=== PATIENT | male | born 1955 | race Caucasian/White ===

== ENCOUNTER 2016-08-28 11:30 | Emergency (ER) | payer MEDICARE ==
[~2016-08-28] VITALS: Ht 180.3 cm; Wt 95.3 kg
[~2016-08-28 11:30] MED LIST: ASPIRIN 325MG325 MG PO; BENZTROPINE1 MG PO; DEPAKOTE 250MG250 MG PO; DIVALPROEX 250250 MG PO; DIVALPROEX SOD250 MG PO; DONEPEZIL 10MG10 MG PO; GLIPIZIDE 5MG TA5 MG PO; HALOPERIDOL 5MG.5 MG OR; LIPITOR40 MG PO; METFORMIN500 MG PO; METOPROLOL SUC100 M1 PO; NAMENDA5 MG PO; SENNA LAXATIVE8.6 MG PO; SEROQUEL 100MG100 MG PO; SEROQUEL25 MG PO
--- OUTSIDE RECORDS SUMMARY | 2016-08-28 11:59 | External Medical Summary Rpt ---
Author Author , Organization [employer] Address Unknown Phone Unavailable Care Team Providers Care Healthcare Consultant Name Role Phone RM HONEYCUTT, RM Unavailable Unavailable YINKA JOHNSON JULY, ELIZABETH JULY Unavailable Unavailable HAGENSCHNEIDER JADEN, Unavailable Unavailable HAGENSCHNEIDER JADEN [facility] Unavailable Unavailable [facility], [facility] Unavailable Unavailable [facility]INGS, [facility] HERNAN GRE, Unavailable Unavailable HERNAN GRE [facility] Unavailable [facility]available [facility], [facility]available Unavailable [facility], [facility], Unavailable Unavailable [facility], Unavailable Unavailable [facility] Unavailable Unavailable COUNSELING, [facility] NIK PAT, NIK Unavailable Unavailable PAT SHRABERG SIMONE, Unavailable Unavailable SHRABERG SIMONE [facility] Unavailable Unavailable EM[facility], [facility] Unavailable Unavailable [facility], [facility], Unavailable Unavailable [facility] IZZY GLE, IZZY Unavailable Unavailable GLE IZZY GLE, IZZY Unavailable Unavailable GLE Purpose Continuity of Care Document - 04-22-2013 through 2016 Problems Code Diagnosis DOS Provider Status E11.40 Type 2 07-18-2016 diabetes mellitus with diabetic neuropathy, unspecified E78.5 Hyperlipide 07-18-2016 jad, unspecified E87.6 Hypokalemia 07-18-2016 F02.81 Dementia in 07-18-2016 other diseases classified elsewhere with behavioral disturbance F41.9 Anxiety 07-18-2016 disorder, unspecified G30.9 Alzheimer's 07-18-2016 disease, unspecified G31.83 Dementia 07-18-2016 with Lewy bodies G40.909 Epilepsy, 07-18-2016 unspecified , not intractable , without status epilepticus G93.40 Encephalopa 07-18-2016 thy, unspecified I10 Essential 07-18-2016 (primary) hypertensio n 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 I82.B19 Acute 07-18-2016 embolism and thrombosis of unspecified subclavian vein J95.03 Malfunction 07-18-2016 of tracheostom y stoma J96.21 Acute and 07-18-2016 chronic respiratory failure with hypoxia J98.11 Atelectasis 07-18-2016 L89.154 Pressure 07-18-2016 ulcer of sacral region, stage 4 R00.0 Tachycardia 07-18-2016 , unspecified R63.3 Feeding 07-18-2016 difficultie s Z79.4 salvage determiner 07-18-2016 (current) use of insulin Z87.01 Personal 07-18-2016 history of pneumonia (recurrent) Z87.440 Personal 07-18-2016 history of urinary (tract) infections Z87.891 Personal 07-18-2016 history of nicotine dependence A41.9 Sepsis, 06-28-2016 unspecified organism B96.1 Klebsiella 06-28-2016 pneumoniae [K. pneumoniae] as the cause of diseases classified elsewhere D72.1 Eosinophili 06-28-2016 a E66.9 Obesity, 06-28-2016 unspecified F02.80 Dementia in 06-28-2016 other diseases classified elsewhere without behavioral disturbance I82.621 Acute 06-28-2016 embolism and thrombosis of deep veins of right upper extremity J18.9 Pneumonia, 06-28-2016 unspecified organism J44.1 Chronic 06-28-2016 obstructive pulmonary disease with (acute) exacerbatio n J69.0 Pneumonitis 06-28-2016 due to inhalation of food and vomit J96.00 Acute 06-28-2016 respiratory failure, unspecified whether with hypoxia or hypercapnia N30.91 Cystitis, 06-28-2016 unspecified with hematuria R13.10 Dysphagia, 06-28-2016 unspecified R65.20 Severe 06-28-2016 sepsis without septic shock R79.1 Abnormal 06-28-2016 coagulation profile T17.990A Other 06-28-2016 foreign object in respiratory tract, part unspecified in causing asphyxiatio n, initial encounter Z93.1 Gastrostomy 06-28-2016 status Z00.00 Encounter 06-27-2016 for general adult medical examination without abnormal findings E11.9 TYPE 2 06-26-2016 DIABETES MELLITUS WITHOUT COMPLICATIO NS I50.9 HEART 06-26-2016 FAILURE, UNSPECIFIED J95.00 UNSPECIFIED 06-26-2016 TRACHEOSTOM Y COMPLICATIO N Z43.0 ENCOUNTER 06-26-2016 FOR ATTENTION TO TRACHEOSTOM Y Z79.01 MOSS BLEACHER 06-26-2016 (CURRENT) USE OF ANTICOAGULA NTS Z79.84 NURSING HOME 06-26-2016 (CURRENT) USE OF ORAL HYPOGLYCEMI C DRUGS Z79.899 OTHER LONG 06-26-2016 TERM (CURRENT) DRUG THERAPY Z86.711 PERSONAL 06-26-2016 HISTORY OF PULMONARY EMBOLISM Z86.718 PERSONAL 06-26-2016 HISTORY OF OTHER VENOUS THROMBOSIS AND EMBOLISM Z86.73 PERSONAL 06-26-2016 HISTORY OF TRANSIENT ISCHEMIC ATTACK (TIA), AND CEREBRAL INFARCTION WITHOUT RESIDUAL DEFICITS 52126 DIAB W/O 10-30-2013 PRIMARY COMP TYPE HEALTH II/UNS NOT ASSOCIATES STATED PS UNCNTRL 3310 ALZHEIMERS 10-30-2013 [facility] 4011 ESSENTIAL 10-30-2013 PRIMARY HYPERTENSI[place], [place] [address] INSOMNIA 09-29-2013 [facility] UNSPECIFIED HEALTH ASSOCIATES PS 2724 OTHER AND 09-16-2013 [facility] HYPERLIPIDE JAD 85801 OTHER 09-16-2013 [facility] FATIGUE 4660 ACUTE 09-15-2013 [place] [address] OTHER 09-03-2013 [facility] FRONTOTEMPO OUTPATIENT RAL COUNSELING DEMENTIA 4019 UNSPECIFIED 08-14-2013 [facility] HYPERTENSIO [facility] N 61429 OTHER 08-14-2013 [facility] ABNORMAL N EMERGENCY GLUCOSE [facility] 27662 DIAB 07-17-2013 PRIMARY W/UNSPEC HEALTH COMP TYPE ASSOCIATES II/UNSPEC PS TYPE UNCNTRL V720 EXAMINATION 07-17-2013 [facility] 22700 DIAB W/OTH 04-30-2013 [facility] MANIFESTS TYPE I [JUV TYPE] UNCNTRL 68951 OTHER 04-30-2013 [facility] LOCALIZED VISUAL FIELD DEFECT 4241 AORTIC 04-30-2013 [facility] VALVE DISORDERS 2768 HYPOPOTASSE 04-29-2013 [facility] JAD 4293 CARDIOMEGAL 04-29-2013 [facility] 7850 UNSPECIFIED 04-29-2013 [facility] G[facility] TACHYCARDIA 3559 MONONEURITI 04-22-2013 [facility] UNSPECIFIED SITE 6822 CELLULITIS 04-22-2013 [facility] 6829 CELLULITIS 04-22-2013 [facility] GLE AND ABSCESS OF UNSPECIFIED SITE 7906 OTHER 04-22-2013 [facility] ABNORMAL [facility] BLOOD [facility] CHEMISTRY 26605 UNS ADVRS 04-22-2013 [facility] EFF UNS RX [facility] MEDICINAL&B HOLDINGS IOLOGICAL SBSTNC V7791 SCREENING 04-22-2013 [facility] FOR LIPOID CO[facility] DISORDERS HOLDINGS Results Labs Lab Lab Date Result Refere Interp Status Commen Order Detail nces retati t Range on Urinalysis dipstick W Reflex Microscopic panel in Urine (08-25-2016 09:40) Bacteri 4+ O complet a 017 ed [Presen 09:40 ce] in Urine sedimen t by Light microsc opy Calcium 1+ NONE complet 017 ed oxalate 09:40 crystal s [Presen ce] in Urine sedimen t by Light microsc opy Erythro TNTC 0 complet cytes 017 ed [Presen 09:40 ce] in Urine sedimen t by Light microsc opy Urinalysis dipstick W Reflex Microscopic panel in Urine (08-25-2016 09:40) Appeara TURBID CLEAR complet nce of 017 ed Urine 09:40 Bilirub NEGATIV NEG complet in 017 E ed [Presen 09:40 ce] in Urine by Test strip Erythro 3+ NEG Abnorma complet cytes 017 l ed [Presen 09:40 ce] in Urine Color TERRIE YELLOW complet of 017 ed Urine 09:40 Ketones TRACE NEG Abnorma complet 017 l ed [Presen 09:40 ce] in Urine by Automat ed test strip Mucus 3+ NEG Abnorma complet [Presen 017 l ed ce] in 09:40 Urine sedimen t by Light microsc opy Nitrite POSITIV NEG Abnorma complet 017 E l ed [Presen 09:40 ce] in Urine by Test strip Urobili 2.0 NEG complet nogen 017 ed [Presen 09:40 ce] in Urine by Test strip CK SerPl-cCnc (07-02-2016 01:02) CK 70 U/L 49-320 complet SerPl-c 017 ed Cnc 01:02 Lactate Bld-sCnc (07-02-2016 01:02) Lactate 2.0 complet 017 mmol/L ed Bld-sCn 01:02 c Bacteria XXX Anaerobe+Aerobe Cult (06-25-2016 05:32) Bacteri [id number] complet a XXX 017 06 No ed Anaerob 05:32 growth e+Aerob (qualif e Cult ier value) SCT NGB5 NO GROWTH DAY 4. L Bacteria XXX Anaerobe+Aerobe Cult (06-24-2016 09:32) Bacteri [id number] complet a XXX 017 06 No ed Anaerob 09:32 growth e+Aerob (qualif e Cult ier value) SCT NGB6 NO GROWTH DAY 5. L Tobramycin SerPl-mCnc (06-19-2016 04:00) Tobramy < 0.3 0.0-10. complet juan 017 ug/mL 0 ed SerPl-m 04:00 Cnc Magnesium SerPl-mCnc (06-19-2016 04:00) Magnesi 2.0 1.9-2.4 complet um 017 mg/dL ed SerPl-m 04:00 Cnc Magnesium SerPl-mCnc (06-14-2016 02:29) Magnesi 2.1 1.9-2.4 complet um 017 mg/dL ed SerPl-m 02:29 Cnc S stercoralis IgG Ser Ql EIA (06-12-2016 16:27) S POSITIV complet stercor 017 E ed agueda 16:27 IgG Ser Ql EIA Vit B12 SerPl-mCnc (06-10-2016 04:59) Vit B12 594 210-103 complet 017 pg/mL 3 ed SerPl-m 04:59 Cnc Phosphate SerPl-mCnc (06-10-2016 04:59) Phospha 4.6 2.5-4.5 complet te 017 mg/dL ed SerPl-m 04:59 Cnc Magnesium SerPl-mCnc (06-10-2016 04:59) Magnesi 2.1 1.9-2.4 complet um 017 mg/dL ed SerPl-m 04:59 Cnc Phosphate SerPl-mCnc (06-08-2016 06:53) Phospha 3.9 2.5-4.5 complet te 017 mg/dL ed SerPl-m 06:53 Cnc Magnesium SerPl-mCnc (06-08-2016 06:53) Magnesi 2.0 1.9-2.4 complet um 017 mg/dL ed SerPl-m 06:53 Cnc Magnesium SerPl-mCnc (06-07-2016 01:55) Magnesi 2.1 1.9-2.4 complet um 017 mg/dL ed SerPl-m 01:55 Cnc Magnesium SerPl-mCnc (06-06-2016 03:00) Magnesi 2.1 1.9-2.4 complet um 017 mg/dL ed SerPl-m 03:00 Cnc Path Rev Bld -Imp (06-05-2016 14:49) Path [id number] complet Rev Bld 017 04 ed -Imp 14:49 refer to patholo gy laborat ory SCT COPATH COPATH REPORT TO FOLLOW L Bacteria XXX Anaerobe+Aerobe Cult (06-05-2016 12:04) Bacteri [id number] complet a XXX 017 06 No ed Anaerob 12:04 growth e+Aerob (qualif e Cult ier value) SCT NGB6 NO GROWTH DAY 5. L Magnesium SerPl-mCnc (06-03-2016 04:00) Magnesi 2.0 1.9-2.4 complet um 017 mg/dL ed SerPl-m 04:00 Cnc Magnesium SerPl-mCnc (06-02-2016 06:51) Magnesi 2.0 1.9-2.4 complet um 017 mg/dL ed SerPl-m 06:51 Cnc Magnesium SerPl-mCnc (06-01-2016 04:58) Magnesi 1.9 1.9-2.4 complet um 017 mg/dL ed SerPl-m 04:58 Cnc Lactate Bld-sCnc (06-01-2016 04:58) Lactate 1.0 complet 017 mmol/L ed Bld-sCn 04:58 c Bacteria XXX Resp Cult (05-31-2016 17:22) Bacteri INSP complet a XXX 017 SMEAR ed Anaerob 17:22 CONTAIN e+Aerob S >=10 e Cult SQUAMOU S EPITHEL IAL CELLS PER LOW POWER FIELD, SUGGEST CANDIDO OF POOR QUALITY . CULTURE NOT PERFORM ED. PLEASE RECOLLE CT IF CLINICA LLY INDICAT ED. A CREDIT HAS BEEN ISSUED. L CC XXX NOTAP complet VC-aCnc 017 NOT ed 17:22 APPLICA BLE L Lactate Bld-sCnc (05-31-2016 07:04) Lactate 1.3 complet 017 mmol/L ed Bld-sCn 07:04 c Magnesium SerPl-mCnc (05-31-2016 02:51) Magnesi 2.2 1.9-2.4 complet um 017 mg/dL ed SerPl-m 02:51 Cnc Bacteria Ur Cult (05-30-2016 17:25) Bacteri [id number] complet a XXX 017 8 Gram ed Anaerob 17:25 negativ e+Aerob e e Cult bacillu s (organi sm) SCT GNROD GRAM NEGATIV E KIKE L CC XXX NOTAP complet VC-aCnc 017 NOT ed 17:25 APPLICA BLE L Lactate Bld-sCnc (05-30-2016 15:08) Lactate 1.8 complet 017 mmol/L ed Bld-sCn 15:08 c Lactate Bld-sCnc (05-30-2016 08:27) Lactate 1.7 complet 017 mmol/L ed Bld-sCn 08:27 c Lactate Bld-sCnc (05-30-2016 04:22) Lactate 2.4 complet 017 mmol/L ed Bld-sCn 04:22 c Bacteria Ur Cult (05-30-2016 03:59) Bacteri [id number] complet a XXX 017 4 ed Anaerob 03:59 Pseudom e+Aerob onas e Cult aerugin jenae (organi sm) SCT PSAR PSEUDOM ONAS AERUGIN JENAE L CC XXX NOTAP complet VC-aCnc 017 NOT ed 03:59 APPLICA BLE L Bacteria XXX Anaerobe+Aerobe Cult (05-30-2016 03:56) Bacteri [id number] complet a XXX 017 06 No ed Anaerob 03:56 growth e+Aerob (qualif e Cult ier value) SCT NGB6 NO GROWTH DAY 5. L Phosphate SerPl-mCnc (05-27-2016 06:02) Phospha 05-27-2 3.7 2.5-4.5 complet te 017 mg/dL ed SerPl-m 06:02 Cnc Magnesium SerPl-mCnc (05-27-2016 06:02) Magnesi 05-27-2 2.0 1.9-2.4 complet um 017 mg/dL ed SerPl-m 06:02 Cnc Fungus Tiss Cult (04-20-2016 13:17) Bacteri NASF NO complet a XXX 017 ed Anaerob 13:17 ADDITIO e+Aerob NAL e Cult SIGNIFI CANT FUNGAL GROWTH AT 6 WEEKS L Bacteri [id number] complet a XXX 017 06 ed Anaerob 13:17 Roxana e+Aerob e Cult dublini ensis (organi sm) SCT CDUB ROXANA DUBLINI ENSIS L Bacteri [id number] complet a XXX 017 06 ed Anaerob 13:17 Roxana e+Aerob e Cult glabrat a (organi sm) SCT TGLA ROXANA GLABRAT A L Procedures Procedure DOS Code Location Performer Comment ALBUMIN 19144 [facility] URINE 4 [facility]NO[facility]I DIAGNOSTI MICROALBU [facility] MIN QUANTIATI VE CREATININ 96299 [facility] E OTHER 4 DIAGNOSTI DIAGNOSTI SOURCE CS BILIRUBIN 97451 [facility] DIRECT 4 DIAGNOSTI DIAGNOSTI [facility] GENERAL 95388 [facility] 4 [facility]AGNOSTI DIAGNOSTI PANEL [facility] LIPID 65818 [facility] PANEL 4 DIAGNOSTI DIAGNOSTI [facility] HEMOGLOBI 30995 [facility] N 4 DIAGNOSTI DIAGNOSTI GLYCOSYLA [address] [address] [facility] DISCHARGE 4 OUTPATIEN SIMONE DAY T MANAGEMEN COUNSELIN T 30 G MIN/< SBSQ 76799 [facility] 4 OUTPATIEN SIMONE CARE/DAY T 25 COUNSELIN MINUTES G SBSQ 53280 [facility] 4 OUTPATIEN SIMONE CARE/DAY T 25 COUNSELIN MINUTES G SBSQ 81109 [facility] 4 OUTPATIEN CARE/DAY T 25 COUNSELIN MINUTES G [facility] 33452 [facility] 4 OUTPATIEN CARE/DAY T 25 COUNSELIN MINUTES G HOSPITAL 30295 [facility] I[facility]Y DISCHARGE 4 GLE GLE DAY MANAGEMEN T > 30 MIN LIPOPROTE 15689 [facility]ZZ[facility] IN DIR 4 GLE GLE GERALDINE HIGH DENSITY CHOLESTER OL DUPLEX 45755 [facility] IZZY SCAN 4 GLE GLE EXTRACRAN IAL ART COMPL BI STUDY SBSQ 14003 [facility]Y HOSPITAL 4 GLE GLE CARE/DAY 35 MINUTES ECHO 26816 [facility] IZZ[facility] TTHRC R-T 4 GLE GLE 2D W/WOM-MOD E COMPL SPEC&COLR D RHYTHM 16086 [facility] ECG 1-3 4 GLE GLE LEADS INTERPRET ATION & REPRT ON RADIOLOGI 44430 [facility] C EXAM 4 EIDER JADEN CHEST 2 RADIOLOGY VIEWS ASSOCIAT FRONTAL&L ATERAL INITIAL 63855 [facility] HOSPITAL 4 GLE GLE CARE/DAY 70 MINUTES RHYTHM 96930 IZZY IZZY ECG 1-3 4 GLE GLE LEADS INTERPRET ATION & REPRT ON LIPOPROTE 59241 IZZ[facility] IZZY IN DIR 4 GLE GLE GERALDINE HIGH [place]ITY CHOLESTER OL 25 83857 [facility] HYDROXY 4 COY CO[facility] INCLUDES [facility]INGS FRACTIONS IF PERFORMED CUL BACT 96651 [facility] XCPT 4 [facility] URINE [facility] HOLD[facility] BLOOD/STO OL AEROBIC ISOL CULTURE 93620 [facility] BACTERIAL 4 [facility] ANY [facility] SOURCE ANAEROBIC ISO&ID GENERAL 88805 [facility] HEALTH 4 [facility] PANEL [facility] INCISION 48880 [place] NIK & 4 MEDICAL PAT DRAINAGE SERV ABSCESS FOUNDATIO SIMPLE/SI N NGLE SUSCEPTIB 50754 [facility] LTY STDY 4 [facility] ANTIMICRB [facility] IAL MICRO/AGA R DILUTJ LIPID 58331 [facility] PANEL 4 COY CO[facility]INGS GLUC BLD 81435 IZZY IZZY GLUC MNTR 4 GLE GLE DEV CLEARED FDA SPEC HOME USE HEMOGLOBI 05796 [facility] N 4 COY COY GLYCOSYLA [facility] HOLDINGS [place] A1C Encounters Encounter Start End Date Code Location Performer Type Date OFFICE 95506 [facility] 4 4 [facility] T VISIT ASSOCIATE 15 S PS MINUTES OFFICE 84469 [facility] OUTPATIEN 4 4 [facility]ALTH Y[facility]A T VISIT ASSOCIATE 15 S PS MINUTES OFFICE 42061 [facility] OUTPATIEN 4 4 HEALTH YINKA T VISIT ASSOCIATE 25 S PS MINUTES EMERGENCY 89256 [facility] EMERGENCY EMERGENCY T VISIT PHYSI PHYSI MODERATE SEVERITY OFFICE 17539 [facility] OUTPATIEN 4 4 HEALTH YINKA T VISIT ASSOCIATE 25 S PS MINUTES EMERGENCY 84305 [facility]AR[facility] 4 4 MEDICAL PAT DEPARTMEN SERV T VISIT FOUNDATIO MODERATE N SEVERITY [facility]OW/MODER SEVERITY OFFICE 33994 IZZY IZZY OUTPATIEN 4 4 GLE GLE T NEW 45 MINUTES
--- OUTSIDE RECORDS SUMMARY | 2016-08-28 11:59 | External Medical Summary Rpt ---
Author Author , Organization [employer] Address Unknown Phone Unavailable Care Team Providers Care Emery Wheel Worker Name Role Phone RM HONEYCUTT, RM Unavailable Unavailable YINKA JOHNSON JULY, ELIZABETH JULY Unavailable Unavailable HAGENSCHNEIDER JADEN, Unavailable Unavailable HAGENSCHNEIDER JADEN [facility] Unavailable Unavailable HOLDINGS, [facility] Unavailable Unavailable HOLDINGS, [facility] HERNAN GRE, Unavailable Unavailable HERNAN GRE [facility] Unavailable Unavailable ASSOCIAT, [facility] Unavailable Unavailable [facility] PS, [facility], [facility]available Unavailable [facility], Unavailable Unavailable [facility] Unavailable Unavailable COUNSELING, [facility] NIK PAT, NIK Unavailable Unavailable PAT SHRABERG SIMONE, Unavailable Unavailable SHRABERG SIMONE [facility] Unavailable Unavailable EMERGENCY [facility], [facility] Unavailable Unavailable EM[facility]Y [facility], [facility]ENC[facility], Unavailable Unavailable [facility] IZZY GLE, IZZY Unavailable Unavailable GLE IZZY [...] 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 I82.B19 Acute 07-18-2016 embolism and thrombosis of unspecified subclavian vein J95.03 Malfunction 07-18-2016 of tracheostom y stoma J96.21 Acute and 07-18-2016 chronic respiratory failure with hypoxia J98.11 Atelectasis 07-18-2016 L89.154 Pressure 07-18-2016 ulcer of sacral region, stage 4 R00.0 Tachycardia 07-18-2016 , unspecified R63.3 Feeding 07-18-2016 difficultie s Z79.4 manager long term care 07-18-2016 (current) use of insulin Z87.01 Personal [...] 06-26-2016 FOR ATTENTION TO TRACHEOSTOM Y Z79.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 (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) USE OF ANTICOAGULA NTS Z79.84 HALFWAY 06-26-2016 (CURRENT) USE OF ORAL HYPOGLYCEMI C DRUGS Z79.899 OTHER LONG 06-26-2016 TERM (CURRENT) DRUG THERAPY Z86.711 PERSONAL 06-26-2016 HISTORY OF PULMONARY EMBOLISM Z86.718 PERSONAL 06-26-2016 HISTORY OF OTHER VENOUS THROMBOSIS AND EMBOLISM Z86.73 PERSONAL 06-26-2016 HISTORY OF TRANSIENT ISCHEMIC ATTACK (TIA), AND CEREBRAL INFARCTION WITHOUT RESIDUAL DEFICITS 22970 DIAB W/O 10-30-2013 PRIMARY COMP TYPE HEALTH II/UNS NOT ASSOCIATES STATED PS UNCNTRL 3310 ALZHEIMERS 10-30-2013 [facility] PS 4011 ESSENTIAL 10-30-2013 [facility] HYPERTENSIO [place] [address] INSOMNIA 09-29-2013 [facility] UNSPECIFIED HEALTH ASSOCIATES PS 2724 OTHER AND 09-16-2013 [facility] HYPERLIPIDE JAD 56577 OTHER 09-16-2013 [facility] FATIGUE 4660 ACUTE 09-15-2013 [place] [address] OTHER 09-03-2013 [facility] FRONTOTEMPO OUTPATIENT RAL COUNSELING DEMENTIA 4019 UNSPECIFIED 08-14-2013 [facility] ESSENTIAL N EMERG[facility]Y HYPERTENSIO PHYSI N 87733 OTHER 08-14-2013 [facility] ABNORMAL N EMERGENCY GLUCOSE [facility] 75006 DIAB 07-17-2013 PRIMARY W/UNSPEC HEALTH COMP TYPE ASSOCIATES II/UNSPEC PS TYPE UNCNTRL V720 EXAMINATION 07-17-2013 [facility] 14151 DIAB W/OTH 04-30-2013 IZZY GLE MANIFESTS TYPE I [JUV TYPE] UNCNTRL 28702 OTHER 04-30-2013 IZZY GLE LOCALIZED VISUAL FIELD DEFECT 4241 AORTIC 04-30-2013 IZZY GLE VALVE DISORDERS 2768 HYPOPOTASSE 04-29-2013 IZZY GLE JAD 4293 CARDIOMEGAL 04-29-2013 [facility] 7850 UNSPECIFIED 04-29-2013 IZZY GLE TACHYCARDIA 3559 MONONEURITI 04-22-2013 [facility] UNSPECIFIED SITE 6822 CELLULITIS 04-22-2013 [facility] 6829 CELLULITIS 04-22-2013 IZZY GLE AND ABSCESS OF UNSPECIFIED SITE 7906 OTHER 04-22-2013 [facility] ABNORMAL [facility] CHEMISTRY 45419 UNS ADVRS 04-22-2013 [facility] EFF UNS [...] Bacteria XXX Anaerobe+Aerobe Cult (06-25-2016 05:32) Bacteri [id number] complet a XXX 017 06 No ed Anaerob 05:32 growth e+Aerob (qualif e Cult ier value) SCT NGB5 NO GROWTH DAY 4. L Bacteria XXX Anaerobe+Aerobe Cult (06-24-2016 09:32) Bacteri [id number] complet a XXX 017 06 No ed [...] Path Rev Bld -Imp (06-05-2016 14:49) Path [id number] complet Rev Bld 017 04 ed -Imp 14:49 refer to patholo gy laborat ory SCT COPATH COPATH REPORT TO FOLLOW L Bacteria XXX Anaerobe+Aerobe Cult (06-05-2016 12:04) Bacteri [id number] complet a XXX 017 06 No ed [...] Cnc Bacteria Ur Cult (05-30-2016 17:25) Bacteri [id number] complet a XXX 017 8 Gram ed [...] c Bacteria Ur Cult (05-30-2016 03:59) Bacteri [id number] complet a XXX 017 4 ed Anaerob 03:59 Pseudom e+Aerob onas e Cult aerugin jenae (organi sm) SCT PSAR PSEUDOM ONAS AERUGIN JENAE L CC XXX NOTAP complet VC-aCnc 017 NOT ed 03:59 APPLICA BLE L Bacteria XXX Anaerobe+Aerobe Cult (05-30-2016 03:56) Bacteri [id number] complet a XXX 017 06 No ed [...] FUNGAL GROWTH AT 6 WEEKS L Bacteri [id number] complet a XXX 017 06 ed Anaerob 13:17 Roxana e+Aerob e Cult dublini ensis (organi sm) SCT CDUB ROXANA DUBLINI ENSIS L Bacteri [id number] complet a XXX 017 06 ed Anaerob 13:17 Roxana e+Aerob e Cult glabrat a (organi sm) SCT TGLA ROXANA GLABRAT A L Procedures Procedure DOS Code Location Performer Comment ALBUMIN 25510 [facility] URINE 4 [facility]AGNOSTI DIAGNOSTI MICROALBU [facility] MIN QUANTIATI VE CREATININ 44251 [facility] E OTHER 4 DIAGNOSTI DIAGNOSTI SOURCE CS BILIRUBIN 79703 [facility] DIRECT 4 DIAGNOSTI DIAGNOSTI [facility] GENERAL 15575 [facility] 4 DIAGNOSTI DIAGNOSTI PANEL [facility] LIPID 04925 [facility] PANEL 4 DIAGNOSTI DIAGNOSTI [facility] HEMOGLOBI 69296 [facility] N 4 DIAGNOSTI DIAGNOSTI GLYCOSYLA [address] [address] [facility] DISCHARGE 4 OUTPATIEN SIMONE DAY T MANAGEMEN COUNSELIN T 30 G MIN/< SBSQ 30665 [facility] 4 OUTPATIEN SIMONE CARE/DAY T 25 COUNSELIN MINUTES G SBSQ 81073 [facility] 4 OUTPATIEN SIMONE CARE/DAY T 25 COUNSELIN MINUTES G SBSQ 40271 [facility] 4 OUTPATIEN CARE/DAY T 25 COUNSELIN MINUTES G [facility] 02820 [facility] 4 OUTPATIEN CARE/DAY T 25 COUNSELIN MINUTES G HOSPITAL 70358 IZZY IZZY DISCHARGE 4 GLE GLE DAY MANAGEMEN T > 30 MIN LIPOPROTE 67731 IZZY IZZY IN DIR 4 GLE GLE GERALDINE HIGH DENSITY CHOLESTER OL DUPLEX 44422 IZZY IZZY SCAN 4 GLE GLE EXTRACRAN IAL ART COMPL BI STUDY SBSQ 64241 IZZY IZZY HOSPITAL 4 GLE GLE CARE/DAY 35 MINUTES ECHO 91093 IZZY IZZY TTHRC R-T 4 GLE GLE 2D W/WOM-MOD E COMPL SPEC&COLR D RHYTHM 37146 IZZY IZZY ECG 1-3 4 GLE GLE LEADS INTERPRET ATION & REPRT ON RADIOLOGI 86339 [facility] C EXAM 4 EIDER JADEN CHEST 2 RADIOLOGY VIEWS ASSOCIAT FRONTAL&L ATERAL INITIAL 69851 [facility] 4 GLE GLE CARE/DAY 70 MINUTES RHYTHM 07463 IZZY IZZY ECG 1-3 4 GLE GLE LEADS INTERPRET ATION & REPRT ON LIPOPROTE 40256 IZZY IZZY IN DIR 4 GLE GLE GERALDINE HIGH DENSITY CHOLESTER OL 25 30349 LAB [facility] O[facility] HYDROXY 4 COY COY INCLUDES HOLDINGS HOLDINGS FRACTIONS IF PERFORMED CUL BACT 69254 [facility] OZZY XCPT 4 COY COY URINE HOLDINGS HOLDINGS BLOOD/STO OL AEROBIC ISOL CULTURE 83908 [facility] BACTERIAL 4 COY COY ANY HOLDINGS HOLDINGS SOURCE ANAEROBIC ISO&ID GENERAL 60974 [facility] HEALTH 4 COY COY PANEL HOLDINGS HOLDINGS INCISION 72161 [place] NIK & 4 MEDICAL PAT DRAINAGE SERV ABSCESS FOUNDATIO SIMPLE/SI N NGLE SUSCEPTIB 13187 [facility] LTY STDY 4 COY COY ANTIMICRB HOLDINGS HOLDINGS IAL MICRO/AGA R DILUTJ LIPID 96292 [facility] PANEL 4 COY COY HOLDINGS HOLDINGS GLUC BLD 73387 IZZY IZZY GLUC MNTR 4 GLE GLE DEV CLEARED FDA SPEC HOME USE HEMOGLOBI 84818 [facility] OZZ[facility] N 4 COY COY GLYCOSYLA HOLDINGS HOLDINGS [place] A1C Encounters Encounter Start End Date Code Location Performer Type Date OFFICE 56801 [facility] OUTPATIEN 4 4 HEALTH YINKA T VISIT ASSOCIATE 15 S PS MINUTES OFFICE 88099 [facility] RM OUTPATIEN 4 4 HEALTH YINKA T VISIT ASSOCIATE 15 S PS MINUTES OFFICE 23399 [facility] RM OUTPATIEN 4 4 HEALTH YINKA T VISIT ASSOCIATE 25 S PS MINUTES EMERGENCY 36018 [facility] 4 4 D[facility]G DOUG [facility] EMERGENCY EMERGENC[facility] T VISIT PHYSI PHYSI MODERATE SEVERITY OFFICE 43622 [facility] RM OUTPATIEN 4 4 HEALTH YINKA T VISIT ASSOCIATE 25 S PS MINUTES EMERGENCY 39712 ABDON ZARAGOZA 4 4 MEDICAL PAT DEPARTMEN SERV T VISIT FOUNDATIO MODERATE N SEVERITY HOSPITAL [facility] 0[facility]01 [facility]OW/MODER SEVERITY OFFICE 47557 IZZY IZZY OUTPATIEN 4 4 GLE GLE T NEW 45 MINUTES
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
--- OUTSIDE RECORDS SUMMARY | 2016-08-28 12:00 | External Medical Summary Rpt ---
Demographics Preferred Language Kazakh Marital Status Unknown Jain Affiliation Unknown Race Unknown Ethnic Group Unknown Author Author , Organization [employer] Address Unknown Phone Unavailable Purpose Continuity of Care Document - through 2016 Immunization No patient found.
--- OUTSIDE RECORDS SUMMARY | 2016-08-28 12:00 | External Medical Summary Rpt ---
Demographics Preferred Language Kyrgyz Marital Status Unknown Yazidi Affiliation Unknown Race Unknown Ethnic Group Unknown Author Author , Organization [employer] Address Unknown Phone Unavailable Purpose Continuity of Care Document - through 2016 Immunization No patient found.
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
--- OUTSIDE RECORDS SUMMARY | 2016-08-28 12:01 | External Medical Summary Rpt ---
Author Author MATT Brito, [employer] Address Unknown Phone Unavailable Results Urinalysis dipstick W Reflex Microscopic panel in Urine Observa Value Referen Units Interpr Notes Date tion ce etation Range Appeara TURBID CLEAR No No No Tommie 2 nce of informa informa informa 2017 Urine tion in tion in tion in 9:40 AM source source source data data data Bacteri 4+ O No No No Tommie 2 a informa informa informa 2016 [Presen tion in tion in tion in 9:40 AM ce] in source source source Urine data data data sedimen t by Light microsc opy Bilirub NEGATIV NEG No No BILIRUB Tommie 2 in E informa informa IN 2017 [Presen tion in tion in CONFIRM 9:40 AM ce] in source source ED WITH Urine data data by Test ICTOTES strip T Erythro 3+ NEG No Abnorma No Tommie 2 cytes informa l informa 2016 [Presen tion in tion in 9:40 AM ce] in source source Urine data data Calcium 1+ NONE #/hpf No No Tommie 2 informa informa 2017 oxalate tion in tion in 9:40 AM source source crystal data data s [Presen ce] in Urine sedimen t by Light microsc opy Color TERRIE YELLOW No No No Tommie 2 of informa informa informa 2017 Urine tion in tion in tion in 9:40 AM source source source data data data Glucose NEG No No No Tommie 2 [Mass/vol informati informati informati 2017 9:40 ume] in on in on in on in AM Urine by source source source Test data data data strip Ketones TRACE NEG mg/dL Abnorma No Tommie 2 l informa 2017 [Presen tion in 9:40 AM ce] in source Urine data by Automat ed test strip Mucus 3+ NEG No Abnorma No Tommie 2 [Presen informa l informa 2016 ce] in tion in tion in 9:40 AM Urine source source sedimen data data t by Light microsc opy Nitrite POSITIV NEG No Abnorma No Tommie 2 E informa l informa 2017 [Presen tion in tion in 9:40 AM ce] in source source Urine data data by Test strip pH of 5.0 - 8.5 No Normal No Tommie 2 Urine informati informati 2017 9:40 on in on in AM source source data data Protein NEG mg/dL High No Tommie 2 [Mass/vol informati 2017 9:40 ume] in on in AM Urine by source Automated data test strip Erythro TNTC 0 rbc/hpf No No Tommie 2 cytes informa informa 2017 [Presen tion in tion in 9:40 AM ce] in source source Urine data data sedimen t by Light microsc opy Specific 1.005 - No Normal No Tommie 2 gravity 1.030 informati informati 2017 9:40 of Urine on in on in AM source source data data Urobili 2.0 NEG E.U./dL No No Tommie 2 nogen informa informa 2017 [Presen tion in tion in 9:40 AM ce] in source source Urine data data by Test strip Leukocyte O wbc/hpf No No Tommie 2 s informati informati 2017 9:40 [#/volume on in on in AM ] in source source Urine data data Urinalysis dipstick W Reflex Microscopic panel in Urine Observa Value Referen Units Interpr Notes Date tion ce etation Range Appeara TURBID CLEAR No No No Tommie 2 nce of informa informa informa 2017 Urine tion in tion in tion in 9:40 AM source source source data data data Bilirub NEGATIV NEG No No BILIRUB Tom[place] 2 in E informa informa IN 2017 [Presen tion in tion in CONFIRM 9:40 AM ce] in source source ED WITH Urine data data by Test ICTOTES strip T Erythro 3+ NEG No Abnorma No Tommie 2 cytes informa l informa 2017 [Presen tion in tion in 9:40 AM ce] in source source Urine data data Color TERRIE YELLOW No No No Tommie 2 of informa informa informa 2017 Urine tion in tion in tion in 9:40 AM source source source data data data Glucose NEG No No No Tommie 2 [Mass/vol informati informati informati 2017 9:40 ume] in on in on in on in AM Urine by source source source Test data data data strip Ketones TRACE NEG mg/dL Abnorma No Tommie 2 l informa 2016 [Presen tion in 9:40 AM ce] in source Urine data by Automat ed test strip Mucus 3+ NEG No Abnorma No Tommie 2 [Presen informa l informa 2016 ce] in tion in tion in 9:40 AM Urine source source sedimen data data t by Light microsc opy Nitrite POSITIV NEG No Abnorma No Tommie 2 E informa l informa 2016 [Presen tion in tion in 9:40 AM ce] in source source Urine data data by Test strip pH of 5.0 - 8.5 No Normal No Tommie 2 Urine informati informati 2017 9:40 on in on in AM source source data data Protein NEG mg/dL High No Aug 2 [Mass/vol informati 2016 9:40 ume] in on in AM Urine by source Automated data test strip Specific 1.005 - No Normal No Tommie 2 gravity 1.030 informati informati 2016 9:40 of Urine on in on in AM source source data data Urobili 2.0 NEG E.U./dL No No Tommie 2 nogen informa informa 2016 [Presen tion in tion in 9:40 AM ce] in source source Urine data data by Test strip INR in Blood by Coagulation assay Observa Value Referen Units Interpr Notes Date tion ce etation Range INR in 0.9 - 1.1 No High INDICATIO August 18 Blood by informati N 2017 Coagulati on in 10:15 AM on assay source INR data RANGETHER APY FOR DVT, PE, ATRIAL FIB; 2.0 - 3.0PROPHY LAXIS FOR VTETHERAP Y FOR MECHANICA L HEART 2.5 - 3.5VALVE; PREVENTIO N OF SYSTEMICE MBOLISM SECONDARY TO AMI Prothromb 9.4 - SECONDS High No August 18 in time 11.8 informati 2016 (PT) in on in 10:15 AM Platelet source poor data plasma by Coagulati on assay Valproate [Mass/volume] in Serum or Plasma Observa Value Referen Units Interpr Notes Date tion ce etation Range Valproate 50 - 100 mcg/mL Normal No August 18 informati 2016 [Mass/vol on in 10:15 AM ume] in source Serum or data Plasma Basic metabolic panel in Blood Observa Value Referen Units Interpr Notes Date tion ce etation Range Urea 7 - 18 mg/dL Normal No August 18 nitrogen informati 2016 [Mass/vol on in 10:15 AM ume] in source Serum or data Plasma Calcium 8.5 - mg/dL Low No August 18 [Mass/vol 10.1 informati 2016 ume] in on in 10:15 AM Serum or source Plasma data Chloride 98 - 107 mmoL/L Normal No August 18 [Moles/vo informati 2016 lume] in on in 10:15 AM Serum or source Plasma data Carbon 21.0 - mmoL/L Normal No August 18 dioxide, 32.0 informati 2016 total on in 10:15 AM [Moles/vo source lume] in data Serum or Plasma Creatinin 0.70 - mg/dL Normal No August 18 e 1.30 informati 2016 [Mass/vol on in 10:15 AM ume] in source Serum or data Plasma Estimated >60 ML/MIN No REFERENCE August 18 informati RANGE: 2017 glomerula on in >60 10:15 AM r source ML/MIN/1. filtratio data 73 SQUARE n rate METERSIf (GF this patient is -A merican, then multiply theresult by 1.210. Glucose 74 - 106 mg/dL Normal No August 18 [Mass/vol informati 2016 ume] in on in 10:15 AM Serum or source Plasma data Potassium 3.5 - 5.1 mmoL/L Low No August 182016 [Moles/vo on in 10:15 AM lume] in source Serum or data Plasma Sodium 136 - 145 mmoL/L Normal No August 18 [Moles/vo informati 2017 lume] in on in 10:15 AM Serum or source Plasma data BNP NT pro Observa Value Referen Units Interpr Notes Date tion ce etation Range NT-proB 11 0 - 131 pg/ml No No Apr 30 [employer] informa informa 2013 tion in tion in 8:18 AM source source data data NOTIFY YES No No No No Apr 30 QA informa informa informa informa 2013 tion in tion in tion in tion in 8:18 AM source source source source data data data data This No No No No Apr 30 informa informa informa informa 2014 analyte tion in tion in tion in tion in 8:18 AM has source source source source conside data data data data rable variabi lity in patient s without known heart No No No No Feb 5 disease informa informa informa informa 2013 and tion in tion in tion in tion in 8:18 AM for source source source source this data data data data reason it is difficu lt to assign strict referen No No No No Feb 5 ce informa informa informa informa 2014 ranges tion in tion in tion in tion in 8:18 AM that source source source source would data data data data account for all circums tances. NT-proB No No No No Feb 5 [employer] can informa informa informa informa 2014 show tion in tion in tion in tion in 8:18 AM substan source source source source tial data data data data increas es in patient s without heart failure No No No No Feb 5 with informa informa informa informa 2014 increas tion in tion in tion in tion in 8:18 AM ing age source source source source and data data data data advanci ng renal insuffi ciency; males in No No No No Feb 5 general informa informa informa informa 2014 have tion in tion in tion in tion in 8:18 AM somewha source source source source t data data data data higher values than females . There are other causes No No No No Feb 5 of informa informa informa informa 2014 increas tion in tion in tion in tion in 8:18 AM ed source source source source NT-proB data data data data [employer] not related to congest adin heart failure No No No No Feb 5 also. informa informa informa informa 2014 For use tion in tion in tion in tion in 8:18 AM as a source source source source screeni data data data data ng test, values less than 131pg/m l are No No No No Feb 5 recomme informa informa informa informa 2014 nded tion in tion in tion in tion in 8:18 AM below source source source source the age data data data data of 76. For patient s 75 years and older, No No No No Feb 5 a informa informa informa informa 2014 cutoff tion in tion in tion in tion in 8:18 AM of source source source source 450pg/n data data data data l is recomme nded. * COMPREHENSIVE METABOLIC PANEL CMP Observa Value Referen Units Interpr Notes Date tion ce etation Range Sodium 135 136 - mmol/L Low No Feb 5 [Moles/ 145 informa 2013 volume] tion in 8:18 AM in source Serum data or Plasma Potassi 3.8 3.5 - mmol/L No No Feb 5 um 5.1 informa informa 2014 [Moles/ tion in tion in 8:18 AM volume] source source in data data Serum or Plasma Chlorid 98 98 - mmol/L No No Feb 5 e 107 informa informa 2014 [Moles/ tion in tion in 8:18 AM volume] source source in data data Serum or Plasma TOTAL 29 21 - 32 mmol/L No No Feb 5 CO2 informa informa 2014 tion in tion in 8:18 AM source source data data ANION 12 5 - 15 mmol/L No No Feb 5 GAP informa informa 2014 tion in tion in 8:18 AM source source data data Glucose 265 70 - mg/dl High No Feb 5 120 informa 2014 [Mass/v tion in 8:18 AM olume] source in data Serum or Plasma Urea 13 7 - 18 mg/dl No No Feb 5 nitroge informa informa 2014 n tion in tion in 8:18 AM [Mass/v source source olume] data data in Serum or Plasma Creatin 1.0 0.6 - mg/dl No No Feb 5 ine 1.3 informa informa 2014 [Mass/v tion in tion in 8:18 AM olume] source source in data data Serum or Plasma AGE 57 No yrs No No Feb 5 informa informa informa 2014 tion in tion in tion in 8:18 AM source source source data data data GFR >60 No ml/min No No Feb 5 informa informa informa 2014 tion in tion in tion in 8:18 AM source source source data data data Calcium 8.0 8.5 - mg/dl Low No Feb 5 10.1 informa 2014 [Mass/v tion in 8:18 AM olume] source in data Serum or Plasma Bilirub 0.4 0.2 - mg/dl No No Feb 5 in.tota 1.0 informa informa 2013 l tion in tion in 8:18 AM [Mass/v source source olume] data data in Serum or Plasma Asparta 31 15 - 37 IU/L No No Feb 5 te informa informa 2014 aminotr tion in tion in 8:18 AM ansfera source source se data data [Enzyma tic activit y/volum e] in Serum or Plasma Alanine 49 12 - 78 IU/L No No Feb 5 informa informa 2014 aminotr tion in tion in 8:18 AM ansfera source source se data data [Enzyma tic activit y/volum e] in Serum or Plasma Alkalin 111 50 - IU/L No No Feb 5 e 136 informa informa 2014 phospha tion in tion in 8:18 AM tase source source [Enzyma data data tic activit y/volum e] in Serum or Plasma Protein 6.9 6.4 - g/dl No No Feb 5 8.2 informa informa 2013 [Mass/v tion in tion in 8:18 AM olume] source source in data data Serum or Plasma Albumin 3.0 3.4 - g/dl Low No Feb 5 5.0 informa 2013 [Mass/v tion in 8:18 AM olume] source in data Serum or Plasma GLOBULI 3.9 1.3 - g/dl High No Feb 5 N 3.5 informa 2013 tion in 8:18 AM source data A/G 0.8 1.0 - ratio Low No Feb 5 RATIO 3.9 informa 2013 tion in 8:18 AM source data \\BLDo\\G No No No No Feb 5 LOMERUL informa informa informa informa 2014 AR tion in tion in tion in tion in 8:18 AM FILTRAT source source source source ION data data data data RATE INTERPR ETATION \\BLDx\\ Normal No No No No Feb 5 Range: informa informa informa informa 2014 >60 tion in tion in tion in tion in 8:18 AM Ml/min/ source source source source 1.73 sq data data data data meters If No No No No b 5 patient informa informa informa informa 2014 is tion in tion in tion in tion in 8:18 AM source source source source data data data data Elise n, multipl y GFR by 1.120. *GFR No No No No b 5 only informa informa informa informa 2014 applies tion in tion in tion in tion in 8:18 AM to source source source source adults data data data data over the age 18. URINALYSIS COMPLETE AUTOMATED Observa Value Referen Units Interpr Notes Date tion ce etation Range Color LT. NL: No No No Apr 4 of YELL Negativ informa informa informa 2014 Urine e tion in tion in tion in 11:16 source source source PM data data data Appeara CLEAR NL: No No No Apr 4 nce of Negativ informa informa informa 2014 Urine e tion in tion in tion in 11:16 source source source PM data data data Glucose 3+ NL: No Abnorma No Apr 4 Negativ informa l informa 2013 [Mass/v e tion in tion in 11:16 olume] source source PM in data data Urine by Test strip Bilirub NEG NL: No No No Apr 4 in Negativ informa informa informa 2013 [Presen e tion in tion in tion in 11:16 ce] in source source source PM Urine data data data by Test strip Ketones TRACE NL: No No No Apr 4 Negativ informa informa informa 2014 [Presen e tion in tion in tion in 11:16 ce] in source source source PM Serum data data data or Plasma Specifi 1.020 NL: No No No Apr 4 c 1.00 >= informa informa informa 2014 gravity 1.030 tion in tion in tion in 11:16 of source source source PM Urine data data data Hemoglo NEG NL: No No No Apr 4 bin Negativ informa informa informa 2014 [Presen e tion in tion in tion in 11:16 ce] in source source source PM Urine data data data by Test strip pH of 6.0 NL: No No No Apr 4 Urine informa informa informa 2014 by Test tion in tion in tion in 11:16 strip source source source PM data data data Protein TRACE NL: No No No Apr 4 Negativ informa informa informa 2013 [Presen e tion in tion in tion in 11:16 ce] in source source source PM Urine data data data by Test strip Urobili 0.2 NL: 0.2 No No No Apr 29 nogen - 1.0 informa informa informa 2013 [Mass/v tion in tion in tion in 11:16 olume] source source source PM in data data data Urine by Test strip Nitrite NEG NL: No No No Apr 29 Negativ informa informa informa 2013 [Presen e tion in tion in tion in 11:16 ce] in source source source PM Urine data data data by Test strip Leukocy NEG NL: No No No Apr 29 dar Negativ informa informa informa 2013 [#/volu e tion in tion in tion in 11:16 me] in source source source PM Blood data data data by Automat ed count { No No No No Apr 29 MICROSC informa informa informa informa 2013 OPIC tion in tion in tion in tion in 11:16 source source source source PM See data data data data Below Leukocy NEGATIV NL: _ No No Apr 29 dar E NEGATIV informa informa 2013 [#/volu E tion in tion in 11:16 me] in source source PM Blood data data by Automat ed count Erythro NEGATIV NL: _ No No Apr 29 cytes E NEGATIV informa informa 2013 [#/volu E tion in tion in 11:16 me] in source source PM Blood data data by Automat ed count Epithel NEGATIV NL: _ No No Apr 4 ial E NEGATIV informa informa 2013 cells E tion in tion in 11:16 [#/area source source PM ] in data data Urine sedimen t by Microsc opy high power field Bacteri NEGATIV NL: _ No No Apr 4 a E NEGATIV informa informa 2013 [#/area E tion in tion in 11:16 ] in source source PM Urine data data sedimen t by Microsc opy high power field Mucus NEGATIV NL: _ No No Apr 4 [Presen E NEGATIV informa informa 2013 ce] in E tion in tion in 11:16 Urine source source PM sedimen data data t by Light microsc opy Yeast NEGATIV NL: _ No No Apr 4 [Presen E NEGATIV informa informa 2013 ce] in E tion in tion in 11:16 Unspeci source source PM fied data data specime n by Wet prepara tion Casts NEGATIV NL: _ No No Apr 29 E NEGATIV informa informa 2013 E tion in tion in 11:16 source source PM data data Crystal NEGATIV NL: _ No No Apr 29 s E NEGATIV informa informa 2013 [type] E tion in tion in 11:16 in source source PM Urine data data sedimen t by Light microsc opy METH OF C CATCH No _ No No Apr 29 JOSUÉ informa informa informa 2013 tion in tion in tion in 11:16 source source source PM data data data RPR Observa Value Referen Units Interpr Notes Date tion ce etation Range _RPR_ No No No No May 02 informa informa informa informa 2013 tion in tion in tion in ti in 9:19 AM source source source source data data data data RPR No No No No May 02 informa informa informa informa 2013 tion in tion in tion in tion in 9:19 AM source source source source data data data data Reporte No No No No May 02 d: informa informa informa informa 2013 tion in tion in tion in tion in 9:19 AM 014 source source source source 07:25 data data data data Status= F ------- No No No No Apr 7 ------- informa informa informa informa 2013 ------- tion in tion in tion in tion in 9:19 AM ------- source source source source ------- data data data data ------- ------- ------- ------- ------- ------- --- TEST No No No No Apr 7 informa informa informa informa 2014 tion in tion in tion in tion in 9:19 AM source source source source RESULT data data data data FLAG RANGE UNITS SC ------- No No No No Apr 7 ------- informa informa informa informa 2013 ------- tion in tion in tion in tion in 9:19 AM ------- source source source source ------- data data data data ------- ------- ------- ------- ------- ------- --- RPR No No No No May 02 informa informa informa informa 2013 tion in tion in tion in tion in 9:19 AM source source source source Non data data data data Reactiv e Non Reactiv e CB 4.0725. rfl.COR RCTD .LCTR No No No No No May 02 informa informa informa informa informa 2014 tion in tion in tion in tion in tion in 9:19 AM source source source source source data data data data data CB No No No No May 02 refers informa informa informa informa 2014 to: tion in tion in tion in tion in 9:19 AM [facility] source source source source [place] data data data data 6370 No No No No May 02 Shah informa informa informa informa 2014 [address] tion in tion in tion in tion in 9:19 AM source source source source data data data data [place], No No No No Apr 7 [place] informa informa informa informa 2014 40716-2 tion in tion in tion in tion in 9:19 AM 296 source source source source data data data data 614 No No No No May 02 [id number] informa informa informa informa 2014 1 tion in tion in tion in tion in 9:19 AM source source source source data data data data [place] No No No No Feb 7 R. informa informa informa informa 2014 Thrashe tion in tion in tion in tion in 9:19 AM MD javi source source source source data data data data No No No No May 02 4.0919. informa informa informa informa 2013 XMT.SEN tion in tion in tion in tion in 9:19 AM T REF source source source source data data data data No No No No May 02 4.0919. informa informa informa informa 2013 XMT.SEN tion in tion in tion in tion in 9:19 AM T REF source source source source data data data data No No No No May 02 4.0919. informa informa informa informa 2014 EHB.to tion in tion in tion in tion in 9:19 AM IZZY source source source source GLE via data data data data link CBC W DIFF AUTOMATED Observa Value Referen Units Interpr Notes Date tion ce etation Range Leukocy 11.7 4.5 - K/uL High No Apr 29 dar 11.5 informa 2013 [#/volu tion in 4:57 PM me] in source Blood data by Automat ed count Erythro 5.54 4.60 - M/uL No No Apr 29 cytes 6.00 informa informa 2013 [#/volu tion in tion in 4:57 PM me] in source source Blood data data by Automat ed count Hemoglo 16.3 14.0 - g/dL No No Apr 29 bin 18.0 informa informa 2013 [Mass/v tion in tion in 4:57 PM olume] source source in data data Blood Hematoc 46 40 - 54 % No No Apr 29 rit informa informa 2013 [Volume tion in tion in 4:57 PM source source Fractio data data n] of Blood by Automat ed count Erythro 82.5 80.0 - fL No No Apr 29 cyte 100 informa informa 2014 mean tion in tion in 4:57 PM corpusc source source ular data data volume [Entiti c volume] by Automat ed count Erythro 29.4 26.0 - pg No No Apr 29 cyte 32.0 informa informa 2014 mean tion in tion in 4:57 PM corpusc source source ular data data hemoglo bin [Entiti c mass] by Automat ed count Erythro 35.7 32.0 - g/dL No No b 4 cyte 36.0 informa informa 2014 mean tion in tion in 4:57 PM corpusc source source ular data data hemoglo bin concent ration [Mass/v olume] by Automat ed count Erythro 13.3 11.5 - % No No b 4 cyte 14.5 informa informa 2014 distrib tion in tion in 4:57 PM ution source source width data data [Ratio] by Automat ed count Platele 375 150 - K/uL No No Apr 29 ts 450 informa informa 2014 [#/volu tion in tion in 4:57 PM me] in source source Blood data data by Automat ed count Lymphoc 25.5 18.0 - % No No b 4 ytes/10 42.0 informa informa 2014 0 tion in tion in 4:57 PM leukocy source source dar in data data Blood by Automat ed count Monocyt 9.4 2.0 - % No No Apr 29 es/100 11.0 informa informa 2014 leukocy tion in tion in 4:57 PM dar in source source Blood data data by Automat ed count Neutrop 62.1 50.0 - % No No b 4 hils.ba 70.0 informa informa 2014 nd tion in tion in 4:57 PM form/10 source source 0 data data leukocy dar in Blood by Manual count Eosinop 1.40 1.00 - % No No b 4 hils/10 3.00 informa informa 2014 0 tion in tion in 4:57 PM leukocy source source dar in data data Blood by Automat ed count Basophi 2.00 0.00 - % No No b 4 ls/100 2.00 informa informa 2014 leukocy tion in tion in 4:57 PM dar in source source Blood data data by Automat ed count Lymphoc 3.24 0.60 - K/uL No No b 4 ytes/10 3.40 informa informa 2014 0 tion in tion in 4:57 PM leukocy source source dar in data data Blood by Automat ed count Monocyt 1.14 0.00 - K/uL High No Feb 4 es/100 0.90 informa 2014 leukocy tion in 4:57 PM dar in source Blood data by Automat ed count Neutrop 7.27 2.00 - K/uL High No Feb 4 hils.ba 6.90 informa 2013 nd tion in 4:57 PM form/10 source 0 data leukocy dar in Blood by Manual count Eosinop 0.16 0.00 - K/uL No No Feb 4 hils/10 0.70 informa informa 2014 0 tion in tion in 4:57 PM leukocy source source dar in data data Blood by Automat ed count Basophi 0.19 0.00 - K/uL No No Feb 4 ls/100 0.20 informa informa 2014 leukocy tion in tion in 4:57 PM dar in source source Blood data data by Automat ed count Manual NOT No No No No Feb 4 Diff INDICAT informa informa informa informa 2014 ED tion in tion in tion in tion in 4:57 PM source source source source data data data data COMPREHENSIVE METABOLIC PANEL CMP Observa Value Referen Units Interpr Notes Date tion ce etation Range Sodium 130 136 - mmol/L Low No Feb 4 [Moles/ 145 informa 2013 volume] tion in 4:47 PM in source Serum data or Plasma Potassi 4.8 3.5 - mmol/L No No Feb 4 um 5.1 informa informa 2013 [Moles/ tion in tion in 4:47 PM volume] source source in data data Serum or Plasma Chlorid 93 98 - mmol/L Low No Feb 4 e 107 informa 2013 [Moles/ tion in 4:47 PM volume] source in data Serum or Plasma TOTAL 28 21 - 32 mmol/L No No Feb 4 CO2 informa informa 2014 tion in tion in 4:47 PM source source data data ANION 14 5 - 15 mmol/L No No Feb 4 GAP informa informa 2014 tion in tion in 4:47 PM source source data data Glucose 495 70 - mg/dl High No Feb 4 120 alert informa 2014 [Mass/v tion in 4:47 PM olume] source in data Serum or Plasma RD BCK RESULTS No No No No Feb 4 VRFY: informa informa informa informa 2014 VERIFIE tion in tion in tion in tion in 4:47 PM D source source source source data data data data RD BCK CVALERIE No No No No b 4 VRFY: IONA, informa informa informa informa 2014 1649,02 tion in tion in tion in tion in 4:47 PM /07/07, source source source source EBARBOU data data data data R Urea 21 7 - 18 mg/dl High No b 4 nitroge informa 2014 n tion in 4:47 PM [Mass/v source olume] data in Serum or Plasma Creatin 1.2 0.6 - mg/dl No No b 4 ine 1.3 informa informa 2014 [Mass/v tion in tion in 4:47 PM olume] source source in data data Serum or Plasma AGE 57 No yrs No No Apr 29 informa informa informa 2014 tion in tion in tion in 4:47 PM source source source data data data GFR >60 No ml/min No No b 4 informa informa informa 2014 tion in tion in tion in 4:47 PM source source source data data data Calcium 8.4 8.5 - mg/dl Low No b 4 10.1 informa 2013 [Mass/v tion in 4:47 PM olume] source in data Serum or Plasma Bilirub 0.6 0.2 - mg/dl No No b 4 in.tota 1.0 informa informa 2014 l tion in tion in 4:47 PM [Mass/v source source olume] data data in Serum or Plasma Asparta 26 15 - 37 IU/L No No b 4 te informa informa 2014 aminotr tion in tion in 4:47 PM ansfera source source se data data [Enzyma tic activit y/volum e] in Serum or Plasma Alanine 49 12 - 78 IU/L No No b 4 informa informa 2014 aminotr tion in tion in 4:47 PM ansfera source source se data data [Enzyma tic activit y/volum e] in Serum or Plasma Alkalin 134 50 - IU/L No No Feb 4 e 136 informa informa 2013 phospha tion in tion in 4:47 PM tase source source [Enzyma data data tic activit y/volum e] in Serum or Plasma Protein 7.7 6.4 - g/dl No No Feb 4 8.2 informa informa 2013 [Mass/v tion in tion in 4:47 PM olume] source source in data data Serum or Plasma Albumin 3.2 3.4 - g/dl Low No Feb 4 5.0 informa 2013 [Mass/v tion in 4:47 PM olume] source in data Serum or Plasma GLOBULI 4.5 1.3 - g/dl High No Feb 4 N 3.5 informa 2013 tion in 4:47 PM source data A/G 0.7 1.0 - ratio Low No Feb 4 RATIO 3.9 informa 2013 tion in 4:47 PM source data \\BLDo\\G No No No No Feb 4 LOMERUL informa informa informa informa 2014 AR tion in tion in tion in tion in 4:47 PM FILTRAT source source source source ION data data data data RATE INTERPR ETATION \\BLDx\\ Normal No No No No Feb 4 Range: informa informa informa informa 2013 >60 tion in tion in tion in tion in 4:47 PM Ml/min/ source source source source 1.73 sq data data data data meters If No No No No Feb 4 patient informa informa informa informa 2013 is tion in tion in tion in tion in 4:47 PM source source source source data data data data Elise n, multipl y GFR by 1.120. *GFR No No No No Feb 4 only informa informa informa informa 2013 applies tion in tion in tion in tion in 4:47 PM to source source source source adults data data data data over the age 18. US ECHO 2D DOPPLER WITH CFI Observa Value Referen Units Interpr Notes Date tion ce etation Range US ECHO No No No No Feb 4 2D informa informa informa informa 2013 DOPPLER tion in tion in tion in tion in 4:04 PM WITH source source source source CFI data data data data [facility]\\.br\\ [address]\\.br \\ [facility] [place] [address]\\. br\\\\.br \\ RADIOLO GY REPORT\\ .br\\ Name: VARUN Benavides\\.br\\ Patient #: [id number] Stay Type: I/P\\.br \\ Age: 57 Room: 232\\.br \\ : 957 Sex: M\\.br\\ Orderin g Phys: IZZY GLE MR#: [id number]\\. br\\ Family Phys: IZZY GLE Pt Phone: [phone] /[phone]\\. br\\ Admitti ng Phys: IZZY GLE\\.br \\ Unsig singh Transcr iptions represe nt a prelimi nary report and do\\.br\\ not reflect a medical or legal documen t.\\.b r\\\\.br\\ \\.br\\ ($( $ '!&&" %&%#$#" !\\.br\\ 54 30!22 00 " 10)\\.br \\\\.br\\ REASON FOR TEST: Vertigo , cardiac dysrhyt hmia, diabete s, and hyperte nsion.\\ .br\\ TAPE: TIME: TECH:\\. br\\ CARDIAC CHAMBER STRUCTU RE DIMENSI ONS NORMAL VALUES: \\.br\\ 1. Left Ventric le Diastol e 4.4 3.5 5.6 cm\\.br\\ 2. Septal Wall Thickne ss 1.1 0.7 1.1 cm\\.br\\ 3. Posteri or Wall Thickne ss 1.1 0.7 - 1.1 cm\\.br\\ 4. Right Ventric le Diastol e 3.6 0.7 - 2.6 cm\\.br\\ 5. Left Atrium 4.3 1.9 4.0 cm\\.br\\ 6. Aortic Root 3.7 2.0 3.7 cm\\.br\\ 7 Tricusp id Valve Regurgi tation ___ NONE ____MIL D ___MODE ST ___MODE RATE ___SEVE RE\\.br\\ 8 Pulmoni c Valve Regurgi tation ___ NONE ____MIL D ___ MODEST ___MODE RATE ___SEVE RE\\.br\\ 9. Mitral Valve Regurgi tation Gradien t Aortic Valve Regurgi tation Gradien t\\.br\\ ___ Normal ___ None Max: ___ Normal ___None Max:\\.b r\\ ___ Stenoti c ___ Mild Mean: ___Sten otic ___Mild Mean:\\. br\\ ___ Prolaps e ___ Modest Area: ___Prol apse ___Mode st Area:\\. br\\ ___ Other ___ Moderat e ___Othe r ___Mode rate\\.b r\\ ___ Severe ___Scle rotic ___Seve re\\.br\\ 10. Pericar dial Effusio n ___ NONE ___ POSTERI OR ONLY ___ POSTERI OR& ANTERIO R\\.br\\ * Best Gross Estimat e MILDRED Not Accurat dina Recorde d. Ejectio n Fractio n:\\.br\\ Evaluat ion of cardiac status using a beta duplex scanner with a color-f low Doppler reveals the followi ng:\\.br \\\\.br\\ 1. Very difficu lt window due to size.\\. br\\ 2. No pericar dial effusio n.\\.br\\ 3. Left atrium enlarge d at 4.3.\\.b r\\ 4. Left ventric le normal in size with fairly descend ing ejectio n fractio n of 65%.\\.b r\\ 5. Right ventric le enlarge d at 3.6.\\.b r\\ 6. Mitral valve normal. \\.br\\ 7. Aortic valve sclerot ic.\\.br \\ OVERALL ASSESSM ENT:\\.b r\\ Adequat e left ventric ular ejectio n fractio n with left atrial enlarge ment with right ventric ular hypertr ophy.\\. br\\\\.br \\ Electro nically reviewe d and signed by:\\.br \\ DELFINO MAGANA M.D.\\.b r\\ Jay/ 08:22\\. br\\ Dictati on /Ti me: 05/02/13 08:41 Dictate d By: DELFINO MAGANA M.D. M.D.\\.b r\\ Transcr . /Ti me: 2/11/14 / 14:21 Transcr . Init.: amh\\.br \\ [facility]\\.br\\ [address]\\.br \\ [place] [address]\\. br\\\\.br \\ RADIOLO GY REPORT\\ .br\\ Name: VARUN Benavides\\.br\\ Patient #: [id number] Stay Type: I/P\\.br \\ Age: 57 Room: 232\\.br \\ : 957 Sex: M\\.br\\ Orderin g Phys: IZZY GLE MR#: [id number]\\. br\\ Family Phys: IZZY GLE Pt Phone: [phone] /[phone]\\. br\\ Admitti ng Phys: IZZY GLE\\.br \\ Unsig singh Transcr iptions represe nt a prelimi nary report and do\\.br\\ not reflect a medical or legal documen t.\\.b r\\\\.br\\ \\.br\\ ($( $ '!&&" %&%#$#" !\\.br\\ 54 30!22 00 " 10)\\.br \\ Copy for: IZZY Leija MD via link\\.b r\\ Copy for: 073 HEALTH INFORMA TION MANAGEM ENT\\.br \\ DISCHAR GED\\.br \\\\.br\\ US CAROTID W VERTEBRALS Observa Value Referen Units Interpr Notes Date tion ce etation Range US No No No No Apr 29 CAROTID informa informa informa informa 2013 W tion in tion in tion in tion in 4:04 PM VERTEBR source source source source ALS data data data data [facility]\\.br\\ [address]\\.br \\ [place] [address]\\. br\\\\.br \\ RADIOLO GY REPORT\\ .br\\ Name: VARUN Benavides\\.br\\ Patient #: [id number] Stay Type: I/P\\.br \\ Age: 57 Room: 232\\.br \\ : 957 Sex: M\\.br\\ Orderin g Phys: IZZY GLE MR#: [id number]\\. br\\ Family Phys: IZZY GLE Pt Phone: [phone] /[phone]\\. br\\ Admitti ng Phys: IZZY SAMAYOA\\.br \\ Unsig singh Transcr iptions represe nt a prelimi nary report and do\\.br\\ not reflect a medical or legal documen t.\\.b r\\\\.br\\ \\.br\\ )%(% ''"(& '&$%$#" !\\.br\\ 3 " 2 10\\.br\\ \\.br\\ INDICAT ION: Visual impairm ent, hyperte nsion, and diabete s.\\.br\\ \\.br\\ Evaluat ion of his carotid s using Beta Duplex scanner with color flow Doppler reveals diffuse \\.br\\ intimal thicken ing along the course of the right ICA as it seems from the common into the right\\. br\\ ICA. Flow rate 77, ratio less than 2, and vertebr al blood flow is antegra de normal. On the left\\.b r\\ side, mild intimal thicken ing. Flow into the left ICA flow rate 60, ratio is less than 2 and vertebr al\\.br\\ blood flow is antegra de normal. \\.br\\\\. br\\ ASSESSM ENT:\\.b r\\ Benign carotid s. I do not see signifi cant obstruc tion, ulcerat ion, or change. \\.br\\\\. br\\\\.br \\\\.br\\ Electro nically reviewe d and signed by:\\.br \\ DELFINO MAGANA M.D.\\.b r\\ MMike/ 08:22\\. br\\\\.br \\ Dictati on Date/Ti me: 05/01/13 06:37 Dictate d By: DELFINO MAGANA M.D. M.D.\\.b r\\ Transcr . Date/Ti me: 05/06/13 / 14:16 Transcr . Init.: amh\\.br \\\\.br\\ Copy for: IZZY Leija MD via link\\.b r\\ Copy for: 073 HEALTH INFORMA TION MANAGEM ENT\\.br \\ DISCHAR GED\\.br \\\\.br\\ CHEST AP LA Observa Value Referen Units Interpr Notes Date tion ce etation Range CHEST No No No No Feb 4 AP LA informa informa informa informa 2013 tion in tion in tion in tion in 4:03 PM source source source source data data data data [facility]\\.br\\ [address]\\.br \\ [place] [address]\\. br\\\\.br \\ RADIOLO GY REPORT\\ .br\\ Name: VARUN Benavides\\.br\\ Patient #: [id number] Stay Type: I/P\\.br \\ Age: 57 Room: 232\\.br \\ : 957 Sex: M\\.br\\ Orderin g Phys: IZZY GLE MR#: [id number]\\. br\\ Family Phys: IZZY GLE Pt Phone: [phone] /[phone]\\. br\\ Admitti ng Phys: IZZY GLE\\.br \\ Unsig singh Transcr iptions represe nt a prelimi nary report and do\\.br\\ not reflect a medical or legal documen t.\\.b r\\\\.br\\ \\.br\\ # "!\\.br\\ 1$11"3 2!1$ 0%0)('& %$\\.br\\ \\.br\\\\. br\\ CLINICA L HISTORY : Hyperte nsion and hyperli pidemia with uncontr olled diabete s.\\.br\\ \\.br\\ COMPARI SON: None.\\. br\\\\.br \\ FINDING S: The heart is at the upper limits of normal in size. The mediast inum and vishal are\\.br \\ unremar kable. The lung volumes are low without pleural fluid or focal pneumon ia. The visuali zed\\.br \\ osseous structu res are unremar kable.\\ .br\\\\.b r\\ IMPRESS ION:\\.b r\\ Borderl ine cardiom egaly and hypoven tilatio n without evidenc e of acute cardiop ulmonar y\\.br\\ disease .\\.br\\\\ .br\\\\.b r\\\\.br\\ Electro nically reviewe d and signed by:\\.br \\ HALEIGH ZAMARRIPA MD\\.br\\ RADIOLO GIST/ 10:49\\. br\\\\.br \\ Dictati on Date/Ti me: 2/04/14 17:16 Dictate d By: HALEIGH ZAMARRIPA MD RADIOLO GIST\\.b r\\ Transcr . Date/Ti me: 04/29/13 / 22:16 Transcr . Init.: amh\\.br \\\\.br\\ Copy for: IZZY Leija MD via link\\.b r\\ Copy for: 073 HEALTH INFORMA TION MANAGEM ENT\\.br \\ DISCHAR GED\\.br \\\\.br\\
--- OUTSIDE RECORDS SUMMARY | 2016-08-28 12:01 | External Medical Summary Rpt ---
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\\.br \\ [facility] [place] [address]\\. br\\\\.br \\ RADIOLO GY REPORT\\ .br\\ Name: VARUN Benavides\\.br\\ Patient #: [id number] Stay Type: I/P\\.br \\ Age: 57 Room: 232\\.br \\ : 957 Sex: M\\.br\\ Orderin g Phys: IZZY GLE MR#: [id number]\\. br\\ Family Phys: IZZY GLE Pt Phone: [phone] /[phone]\\. br\\ Admitti ng Phys: IZZY GLE\\.br \\ [...] / 14:21 Transcr . Init.: amh\\.br \\ [facility]\\.br\\ [address]\\.br \\ [place] [address]\\. br\\\\.br \\ RADIOLO GY REPORT\\ .br\\ Name: VARUN Benavides\\.br\\ Patient #: [id number] Stay Type: I/P\\.br \\ Age: 57 Room: 232\\.br \\ : 957 Sex: M\\.br\\ Orderin g Phys: IZZY GLE MR#: [id number]\\. br\\ Family Phys: IZZY GLE Pt Phone: [phone] /[phone]\\. br\\ Admitti ng Phys: IZZY GLE\\.br \\ [...] source source ALS data data data data [facility]\\.br\\ [address]\\.br \\ [place] [address]\\. br\\\\.br \\ RADIOLO GY REPORT\\ .br\\ Name: VARUN Benavides\\.br\\ Patient #: [id number] Stay Type: I/P\\.br \\ Age: 57 Room: 232\\.br \\ : 957 Sex: M\\.br\\ Orderin g Phys: IZZY GLE MR#: [id number]\\. br\\ Family Phys: IZZY GLE Pt Phone: [phone] /[phone]\\. br\\ Admitti ng Phys: IZZY SAMAYOA\\.br [...] source source source data data data data [facility]\\.br\\ [address]\\.br \\ [place] [address]\\. br\\\\.br \\ RADIOLO GY REPORT\\ .br\\ Name: VARUN Benavides\\.br\\ Patient #: [id number] Stay Type: I/P\\.br \\ Age: 57 Room: 232\\.br \\ : 957 Sex: M\\.br\\ Orderin g Phys: IZZY GLE MR#: [id number]\\. br\\ Family Phys: IZZY GLE Pt Phone: [phone] /[phone]\\. br\\ Admitti ng Phys: IZZY GLE\\.br \\ [...]
--- NOTE | 2016-08-28 12:26 | Emergency Room Report ---
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 N Clinical Suspician of Infection? N Mental Status: 1 - Regular (Normal Baseline) Sepsis Risk:Low Sepsis Risk Have you (or family members/close friends) recently traveled outside the [place]? N If Yes, where/when: Have you had exposure to infectious disease within the past month? N TB? Other? Specify: Source patient, RN notes reviewed, family, RN/MD Exam Limitations no limitations Comment This is a 61-year-old male presenting to the emergency room, as request of Dr. Riddle, for evaluation of shortness of breath, productive cough for the past 2-3 days. Patient also requesting swab of his open wound on his presacral area. Family denies any fever. Patient is status post CVA, bedridden. ALLERGIES Coded Allergies: No Known Allergies (04/17/16) History Medical History General CAD? No Angina: No [place]: No Hypertension? Yes Hyperlipidemia? Yes CHF? No DVT? No PE? No COPD? No Asthma? No Anemia? No GERD? No Gastric ulcers? No GI Bleed? No Hernia? No Thyroid Problems? No Hypothyroidism? No CVA? No Seizures? Yes Diabetes? Yes Insulin Dependent: No Insulin Pump: No Home FSBS? Yes Renal Insuffiency? No End Stage Renal Disease? No UTI? No Stones? No BPH? No GB Disease: No Nephritic Syndrome? No Asplenia? No Hepatitis? No Sickle Cell Disease? No Arthritis? No Migraines? No Cataracts? No Glaucoma? No MRSA? No HIV? No TB? No Anxiety? Yes Depression? No Cancer? No More? Yes Additional hx: dementia Immunization Hx DT/Tetanus Unknown Flu Refused Pneumonia Refuses Surgical Hx Previous Surgery?Y PEG PLACEMENT Family History Family Hx Diabetes Yes CAD No Hypertension Yes Hyperlipidemia Yes Cancer No TB No Social History Smoking Hx Smoker: Former Smoker Tobacco: Yes Type Cigarettes Packs/day N/A Alcohol Alcohol: No Review of Systems All Other Systems Reviewed and Negative Respiratory cough (productive), shortness of breath Physical Exam Vital Signs Vital Signs Date Time Temp Pulse Resp B/P Pulse O2 O2 Flow FiO2 Ox Delivery Rate 08/28 1313 98.4 79 18 120/79 93 08/28 1138 98.4 76 18 114/77 92 General Appearance normal appearance, WD/WN, mild distress Respiratory Status Yes: trachea midline, chest symmetrical, non tender chest. No: respiratory distress. Lung Sounds posterior: wheezing. bilateral: normal breath sounds, wheezing. Cardiovascular normal exam, regular rate/rhythm, no peripheral edema, no gallop, no JVD, no murmur, no rub, normal peripheral pulses Gastrointestinal normal bowel sounds, normal exam, non tender, soft, no organomegaly Extremities non-tender, normal range of motion, normal inspection Neurologic alert, oriented x 3 Mental status depressed affect Skin normal color, warm/dry, 5 x 5 presacral area, condition, consistent with a stage 3-4 decubitus ulcer Medical Decision Making LABS/Meds/Orders Pt receiving controlled substance in ED? No Comment Family insisting on patient departing the emergency room shortly after arrival, saying that he is not feeling better. Family refusing any, stating that patient has plenty of caregivers at home which can provide adequate medical care for him , making the admission futile. Advised patient as well as family members of results obtained, need to follow up with PCP if not better by discharge instructions. Results/Orders Laboratory Tests 08/28/16 1240: Sodium 141, Potassium 3.5, Chloride 102, Carbon Dioxide 27, BUN 21 H, Creatinine 0.8, Estimated Creat Clear 134, Estimated GFR (MDRD) 99, Glucose 76, Calcium 8.6, Total Bilirubin 0.3, AST 14 L, ALT 10 L, Alkaline Phosphatase 66, Creatine Kinase 47, CK and CKMB Interp < 0.5, Troponin I < 0.02, Total Protein 8.0, Albumin 2.1 L, Globulin 5.9 H, Albumin/Globulin Ratio 0.4 L, WBC 12.2 H , RBC 4.89, Hgb 11.6 L, Hct 38.8 L, MCV 79.3 L, RDW 16.2, Plt Count 350, MPV 4.8 L, Gran % 70.2, Gran # 8.6 H, Lymphocytes % 16.1, Monocytes % 11.3 H, Eosinophils % 1.7, Basophils % 0.7, Lymphocytes # 2.0, Monocytes # 1.4 H, Eosinophils # 0.2, Basophils # 0.1, PUBS MCHC 29.9 L, MCH 23.7 L Orders Procedure Date/time Status ARTERIAL BLOOD GAS REQUEST 08/28 1209 Active CULTURE, WOUND 08/28 1207 Complete ELECTROCARDIOGRAM REQUEST 08/28 115 Active IV SALINE LOCK 08/28 115 Active OXYGEN PER NURSE 08/28 1155 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 Active TROPONIN I 08/28 1155 Complete CPK 08/28 1155 Complete COMPLETE METABOLIC PANEL 08/28 1155 Complete CKMB 08/28 115 Complete CBC WITH AUTO DIFF 08/28 115 Complete 12 LEAD EKG-PARIS (INITIAL) 08/28 115 Active XRAY/CT/US XRAY/CT/US XRAY chest XR interpretation by reviewed by me, discussed w/radiologist Xray Results no infiltrates, normal heart size, normal lung inflation aikl Departure Departure Time of Disposition 1224 Disposition DC Home or Self Care(routine) Clinical Impression Primary Impression: Acute bronchitis Qualifiers: Bronchitis organism: unspecified organism Qualified Code: J20.9 - Acute bronchitis, unspecified Secondary Impressions: Decubital ulcer Qualifiers: Pressure ulcer location: lower back Pressure ulcer stage: stage 4 Laterality: right Qualified Code: L89.134 - Pressure ulcer of right lower back, stage 4 Condition STABLE Referrals ALE KIM (Family): 2 Days-Call Office if not better Patient Instructions DI for Acute Bronchitis, DI for Pressure Sores Additional Instructions Please take the medications prescribed as directed, follow-up with your PCP in 3 days, for wound culture results. Discharge Counseling Counseled pt/family regarding diagnosis, test results, medications/RX, home care, follow up needs Prescriptions Current Visit Scripts Levofloxacin (Levaquin 750mg) 750 MG PO DAILY #10 TAB ED Critical Care Critical Care No at 0102
[2016-08-28 12:48] LABS: HEMOGLOBIN 11.6 g/dL (14.1-18.0); LYMPH % 16.1 % (10-50)
[2016-08-28 13:13] VITALS: BP 120/79
[2016-08-28] MEDS ORDERED: LEVAQUIN 750 M750 MG PO (13:13)
[2016-08-28 13:45] LABS: BUN 21 mg/dL (7-18)
[2016-08-28 13:48] LABS: GFR (ESTIMATED) 99 ML/MIN (>60)
--- NOTE | 2016-08-28 16:23 | RADIOLOGY REPORT PS360 ---
CHEST-PORTABLE HISTORY: Chest pain and shortness of breath dyspnea ORDERING PHYSICIAN: Juan Diego Chavez MD PATIENT AGE: 60 years COMPARISON: 04/18/2016 FINDINGS: The cardiomediastinal silhouette and pulmonary vascularity are within normal limits. There is patchy density in right upper lobe suspicious for pneumonia. Suggest follow until clear. The remaining lungs are clear. IMPRESSION: Right upper lobe pneumonia. Recommend follow until clear
== END 2016-08-28 13:14 | disposition home or self-care (01) ==
LOC: ER 11:30
PROVIDERS: Emergency Medicine
DX: J20.9 Acute bronchitis, unspecified (principal); L89.134 Pressure ulcer of right lower back, stage 4; Z87.891 Personal history of nicotine dependence; I10 Essential (primary) hypertension; E11.9 Type 2 diabetes mellitus without complications; F41.9 Anxiety disorder, unspecified

== ENCOUNTER 2016-11-27 03:40 | Inpatient (IN) | payer MEDICARE ==
[~2016-11-27] VITALS: Ht 180.3 cm; Wt 80.8 kg
[~2016-11-27 03:40] MED LIST changes: +LEVAQUIN 750 M750 MG PO
[2016-11-27 03:42] VITALS: BP 139/80
[2016-11-27 04:00] LABS: URINE BILIRUBIN - DIPSTICK NEGATIVE (NEG); URINE BLOOD 2+ (NEG)
[2016-11-27 04:06] LABS: HEMOGLOBIN 11.1 g/dL (14.1-18.0); LYMPH # 3.3 K/mm3 (0.7-4.5); LYMPH % 23.7 % (10-50)
[2016-11-27 04:08] LABS: ALLEN'S TEST Y; ARTERIAL ABE 2.7 MMOL/L (-2.4-+2.3); ARTERIAL PO2 43.4 MMHG (80-100); ARTERIAL TCO2 29.1 MMOL/L (23-27); OXYGEN 100
[2016-11-27] MEDS ORDERED: ARICEPT23 MG PO (04:13)
[2016-11-27] MEDS ORDERED: LIPITOR40 MG PO (04:14)
[2016-11-27] MEDS ORDERED: LEVAQUIN 750 M750 MG PO (04:14)
[2016-11-27] MEDS ORDERED: MIRALAX17 GM/PACK PO (04:15)
[2016-11-27] MEDS ORDERED: QUETIAPINE FUM100 MG PO (04:16)
[2016-11-27] MEDS ORDERED: ZINC SULFATE 2220 MG PO (04:18)
[2016-11-27] MEDS ORDERED: VALPROIC A500 MG/10 PO (04:18)
[2016-11-27] MEDS ORDERED: ZOLOFT100 MG PO (04:19)
[2016-11-27] MEDS ORDERED: NAMENDA10 MG PO (04:20)
[2016-11-27] MEDS ORDERED: CARBIDOPA AND L1 TA2 PO (04:22)
[2016-11-27] MEDS ORDERED: PHARMASSURE VI500 MG PO (04:22)
[2016-11-27] MEDS ORDERED: TRAMADOL 50MG T50 M1 PO (04:23)
[2016-11-27] MEDS ORDERED: MORPHINE SULFAT15 M2 PO (04:23)
[2016-11-27] MEDS ORDERED: ACETAMINOPHEN500 M3 PO (04:24)
[2016-11-27] MEDS ORDERED: DOCUSATE SODIU100 MG PO (04:25)
--- NOTE | 2016-11-27 04:53 | Emergency Room Report ---
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 N Clinical Suspician of Infection? Y Mental Status: 1 - Regular (Normal Baseline) Sepsis Risk:Severe Sepsis Risk Have you (or family members/close friends) recently traveled outside the [place]? N If Yes, where/when: Have you had exposure to infectious disease within the past month? N TB? Other? Specify: Source patient, RN notes reviewed, family, EMS, [facility] records, old records Exam Limitations clinical condition Comment pt with hx of sacral decubitus which has been treated at [facility] but tonight dev sob with dec sat - pt unable to give specific hx Cardiac Chest Pain Chest pain indicative of cardiac No Timing/Duration this morning Severity moderate ALLERGIES Coded Allergies: No Known Allergies (04/17/16) Home Medications Active Scripts Levofloxacin (Levaquin 750mg) 750 MG PO DAILY #10 TAB Prov: 08/28/16 Reported Medications DONEPEZIL HCL (Aricept 23MG) 10 MG PO DAILY Atorvastatin Calcium (Atorvastatin) 20 MG PO DAILY Levofloxacin (Levaquin 750mg) 750 MG PO DAILY Polyethylene Glycol 3350 (Miralax) 17 GM PO DAILY QUETIAPINE FUMARATE (Quetiapine Fumarate) 100 MG PO DAILY Valproic Acid (Valproic Acid Syrup 500MG/10ML) 250 MG FT DAILY Zinc Sulfate (Zinc Sulfate 220MG) 220 MG PO DAILY SERTRALINE HYDROCHLORIDE (Zoloft 100MG) 100 MG PO DAILY MEMANTINE HCL (Namenda 10MG) 10 MG PO BID Ascorbic Acid (Vitamin C) 500 MG PO BID Carbidopa/Levodopa (Carbidopa-Levodopa 25-100 Tab) 1 TAB PO TID MORPHINE SULFATE SR/ER (Morphine Sulfate ER) 15 MG PO Q12 TRAMADOL HCL (Tramadol) 50 MG PO TIDP PRN PAIN Acetaminophen (Acetaminophen Extra Strength) 500 MG PO Q4HP PRN PAIN Docusate Sodium 100 MG PO DAILYP PRN BM History Medical History General CAD? No Angina: No CO: No Hypertension? Yes Hyperlipidemia? Yes CHF? No DVT? No PE? No COPD? No Asthma? No Anemia? No GERD? No Gastric ulcers? No GI Bleed? No Hernia? No Thyroid Problems? No Hypothyroidism? No CVA? No Seizures? Yes Diabetes? Yes Insulin Dependent: No Insulin Pump: No Home FSBS? Yes Renal Insuffiency? No End Stage Renal Disease? No UTI? No Stones? No BPH? No GB Disease: No Nephritic Syndrome? No Asplenia? No Hepatitis? No Sickle Cell Disease? No Arthritis? No Migraines? No Cataracts? No Glaucoma? No MRSA? No HIV? No TB? No Anxiety? Yes Depression? No Cancer? No More? Yes Additional hx: dementia Immunization Hx DT/Tetanus Unknown Flu Refused Pneumonia Refuses Surgical Hx Previous Surgery?Y PEG PLACEMENT Family History Family Hx Diabetes Yes CAD No Hypertension Yes Hyperlipidemia Yes Cancer No TB No Social History Smoking Hx Smoker: Never Smoker Tobacco: No Packs/day N/A Are you/the child exposed to second-hand smoke: No Alcohol Alcohol: No Drugs none Review of Systems All Other Systems Reviewed and Negative Constitutional see HPI, fever Eyes denies drainage ENT denies: epistaxis. Respiratory denies cough, shortness of breath, denies wheezing Cardiovascular denies chest pain, denies syncope Gastrointestinal denies diarrhea, denies vomiting Genitourinary denies: hematuria. Musculoskeletal denies joint swelling Skin see HPI, denies rash, other Psychiatric/Neurological denies headache, denies seizure Physical Exam Vital Signs Vital Signs Date Time Temp Pulse Resp B/P Pulse O2 O2 Flow FiO2 Ox Delivery Rate 11/27 07 97.8 87 22 138/86 88 15 11/27 0538 104 22 120/70 89 15 11/27 0452 104 28 109/70 79 15 11/27 0420 110 28 164/67 73 15 11/27 0400 62 11/27 0342 101.1 133 28 139/80 64 - WBC >12,000 or <4,000 or 10% bands? 2 or more SIRS Criteria Met? B/P:109/70 MAP:99 Creatinine >2.0? UA output<0.5ml/kg/hr for 2 hrs? Platelet count >100,000? Lactate >2.0mmol/1? INR >1.2 or PTT > than 60 sec? Evidence of Organ Dysfunction? Provider documented clinical suspician of infection? Y Sepsis Criteria Count: 3 Sepsis Risk: Severe Sepsis Risk General Appearance no apparent distress Eye Exam - bilateral eye PERRL, bilateral eye EOMI Ear, Nose, Throat normal ENT inspection Neck limited range of motion Respiratory Status No: respiratory distress. Lung Sounds bilateral: decreased breath sounds. Cardiovascular regular rate/rhythm, systolic murmur Peripheral Pulses Pulses normal Yes Gastrointestinal soft, no organomegaly, no pulsatile mass Extremities swelling Male Genitalia chronic marshall Neurologic no focal changes Reflexes Reflexes normal No Mental status normal mood/affect Skin sacral decubitus Medical Decision Making LABS/Meds/Orders Pt receiving controlled substance in ED? No Results/Orders Laboratory Tests 11/27/16 040: ABG pH 7.39, ABG pCO2 (Temp Corrct 46.5 H, ABG pO2 (Temp Correct 43.4 *L, ABG HCO3 27.6 H, ABG Total CO2 29.1 H, ABG O2 Sat (Calculated) 73.7 *L, ABG Base Excess 2.7 H, Mathew Test Y, Blood Gas Comments R/R 11/27/16 0354: Urine Color YELLOW, Urine Appearance CLEAR, Urine pH 6.0, Ur Specific [place] 1.025, Urine Protein TRACE H, Urine Ketones NEGATIVE, Urine Blood 2+ H, Urine Nitrate NEGATIVE, Urine Bilirubin NEGATIVE, Urine Urobilinogen 2.0, Ur Leukocyte Esterase 2+ H, Urine RBC 10-20, Urine WBC 20-50, Ur Squamous Epith Cells 3-5, Urine Bacteria 3+, Urine Mucus 1+, Urine Glucose NEGATIVE 11/27/16344: Lactic Acid 1.5 11/27/16344: Creatine Kinase 53, CK-MB (CK-2) Rel Index 0.9, CK and CKMB Interp < 0.5, Troponin I < 0.02 11/27/16344: Sodium 150 H, Potassium 4.0, Chloride 111 H, Carbon Dioxide 30, BUN 29 H, Creatinine 0.9, Estimated Creat Clear 123, Estimated GFR (MDRD) 86, Glucose 126 H, Calcium 8.3 L, Total Bilirubin 0.3, AST 23, ALT 5 L, Alkaline Phosphatase 62, Total Protein 8.3 H, Albumin 1.8 L, Globulin 6.5 H, Albumin/Globulin Ratio 0.3 L, D-Dimer 2510 *H, WBC 13.8 H, RBC 4.59 L, Hgb 11.1 L, Hct 38.5 L, MCV 83.8, RDW 17.2, Plt Count 363, MPV 6.5 L, Gran % 67.0, Gran # 9.2 H, Lymphocytes % 23.7, Monocytes % 8.2, Eosinophils % 0.4, Basophils % 0.8, Lymphocytes # 3.3, Monocytes # 1.1 H, Eosinophils # 0.1, Basophils # 0.1, PUBS MCHC 28.8 L, MCH 24.1 L Current Medication Orders Sig/Harriet Start time Last Medication Dose Route Stop Time Status Admin Iopamidol 60 ML ONCE ONE 11/27 07 UNV 11/27 IV 11/27 0701 0610 Sodium Chloride 10 ML ONCE ONE 11/27 07 UNV 11/27 IV 11/27 0701 0610 Sodium Chloride 20 ML ONCE ONE 11/27 07 UNV 11/27 IV 11/27 0701 0610 Sodium Chloride 20 ML ONCE ONE 11/27 07 UNV 11/27 IV 11/27 0701 0610 Sodium Chloride 1,000 ML .STK-MED ONE 11/27 0624 DC IV Sodium Chloride 1,000 ML .STK-MED ONE 11/27 0428 DC IV Sodium Chloride 1,000 ML .Q1H1M 11/27 0415 DC 11/27 IV 11/27 0615 0629 Sodium Chloride 10 ML PRN PRN 11/27 0415 AC IV 11/28 0403 Albuterol/Ipratropium 0 .STK-MED ONE 11/27 0413 DC INH Acetaminophen 650 MG ONCE ONE 11/27 0400 DC 11/27 FL 11/27 0401 0403 Albuterol/Ipratropium 3 ML ONCE ONE 11/27 0400 DC 11/27 INH 11/27 0401 0429 Sodium Chloride 10 ML PRN PRN 11/27 0400 AC IV 11/28 0351 Sodium Chloride 1,000 ML .Q1H1M 11/27 0400 DC 11/27 IV 11/27 0500 0403 Sodium Chloride 10 ML PRN PRN 11/27 0400 AC IV 11/28 0353 Sodium Chloride 1,000 ML .STK-MED ONE 11/27 0350 DC IV Acetaminophen 0 .STK-MED ONE 11/27 0349 DC FL Orders Procedure Date/time Status DIET-NOTHING BY MOUTH 11/27 B Active Decision to admit 11/27 0740 Active CTA-CHEST 11/[address] SCAN REQ 11/27 0516 Complete CARDIAC ENZYMES 11/27 0515 Complete D-DIMER 11/27 0514 Complete RT Aerosol Treatment, Provide 11/27 0427 Active CULTURE, SPUTUM 11/27 0404 Active RT REQUEST DUONEB 11/27 0354 Active ARTERIAL BLOOD GAS REQUEST 11/27 0354 Active CHEST-PORTABLE 11/27 0354 Active SUCTION PER ORAL/NASAL/ET PRN 11/27 0354 Active IV SALINE LOCK 11/27 035 Active OXYGEN PER NURSE 11/27 0354 Active CULTURE, URINE 11/27 035 Active CULTURE, BLOOD 11/27 0354 Active URINALYSIS/COMPLETE 11/27 035 Complete LACTIC ACID 11/27 035 Complete CBC WITH AUTO DIFF 11/27 035 Complete CHEM 12 PROFILE 11/27 0354 Complete XRAY/CT/US XRAY/CT/US XRAY chest XR interpretation by reviewed by me Xray Results abnormal (possible lt lower lobe changes) Departure Departure Time of Disposition 0511 Disposition Still a Patient Clinical Impression Primary Impression: Acute febrile illness Secondary Impressions: Aortic aneurysm Qualifiers: Aortic location: thoracic aorta Presence of rupture: without rupture Qualified Code: I71.2 - Thoracic aortic aneurysm, without rupture Aspiration pneumonia Qualifiers: Aspiration pneumonia type: unspecified Laterality: bilateral Lung location: unspecified part of lung Qualified Code: J69.0 - Pneumonitis due to inhalation of food and vomit Sacral decubitus ulcer, stage IV Condition STABLE Referrals Mercedez CARRERA,Curt Hyde (Family) ED Critical Care Critical Care No at 0820
[2016-11-27 09:22] VITALS: BP 147/100
--- NOTE | 2016-11-27 09:42 | PHARMACY CLINIC NOTE ---
Patient Demographics Patient Demographics Admission date: 11/27/16 Date: 11/27/16 Time: 09 Allergies Coded Allergies: No Known Allergies (04/17/16) HEIGHT- FT: 5 IN: 11.00 K.854 VTE General Information Labs: Laboratory Tests 11/27 0345 Hematology Hgb (14.1 - 18.0 g/dL) 11.1 L Hct (42.0 - 52.0 %) 38.5 L Plt Count (142 - 424 K/mm3) 363 Disclaimer The following section includes nursing documentation that has been pulled in for pharmacy review. Clinical trial participant? No VTE prophylaxis NQF [id number] VTE prophylaxis ordered? Yes Type of prophylaxis/treatment: CHAPARRO at 0942
--- NOTE | 2016-11-27 10:27 | RADIOLOGY REPORT PS360 ---
CHEST-PORTABLE HISTORY: SOB Patient Age: 61 years: Male Ordering Physician: TECHNIQUE: AP portable upright chest COMPARISON : 120 07/10 and 08/28/2016 portable chest along with CT chest from today FINDINGS Left lower lobe pneumonia is evident the retrocardiac region. This matches the most evident infiltrate seen on today's CT. The remainder the lungs appear similar to previous chest films in fact there is slight clearing at the right upper chest compared to previous portable study 08/28/2016. Slight coarsening markings toward the right lung bases reflects most likely chronic change on this plain film. The heart vishal and mediastinal structures appear satisfactory on plain film. IMPRESSION left lower lobe pneumonic infiltrate, retrocardiac region
[2016-11-27] MEDS ORDERED: ZOLOFT 50MG TAB50 MG PO (11:54)
[2016-11-27] MEDS ORDERED: IPRATROPIUM BROM3 M1 IH (11:56)
[2016-11-27] MEDS ORDERED: VALPROIC A250 MG/5 M PO (11:59)
--- NOTE | 2016-11-27 11:59 | ST BEDSIDE DYSPHAGIA EVAL ---
SUBJECTIVE-DYSPHAGIA Date: 11/27/16 Time: 1100 Eval Type: Initial Certification - Admitted Date: 11/27/16 Primary Diagnosis: ASPIRATION PNEUMONIA Reason for Consult: PNEUMONIA Pt/Caregiver Concerns: R/O ASPRIATION Onset of symptoms- 11/27/16 0800 MEDICAL HX UNKNOWN Symptoms have worsened? NO improved? NO resolved? NO since onset. Current Diet: MECHANICAL SOFT/THINS Allergies Coded Allergies: No Known Allergies (04/17/16) Home Medications Active Scripts Levofloxacin (Levaquin 750mg) 750 MG PO DAILY #10 TAB Prov: 08/28/16 Reported Medications DONEPEZIL HCL (Aricept 23MG) 10 MG PO DAILY Atorvastatin Calcium (Atorvastatin) 20 MG PO DAILY Levofloxacin (Levaquin 750mg) 750 MG PO DAILY Polyethylene Glycol 3350 (Miralax) 17 GM PO DAILY QUETIAPINE FUMARATE (Quetiapine Fumarate) 100 MG PO DAILY Valproic Acid (Valproic Acid Syrup 500MG/10ML) 250 MG FT DAILY Zinc Sulfate (Zinc Sulfate 220MG) 220 MG PO DAILY SERTRALINE HYDROCHLORIDE (Zoloft 100MG) 100 MG PO DAILY MEMANTINE HCL (Namenda 10MG) 10 MG PO BID Ascorbic Acid (Vitamin C) 500 MG PO BID Carbidopa/Levodopa (Carbidopa-Levodopa 25-100 Tab) 1 TAB PO TID MORPHINE SULFATE SR/ER (Morphine Sulfate ER) 15 MG PO Q12 TRAMADOL HCL (Tramadol) 50 MG PO TIDP PRN PAIN Acetaminophen (Acetaminophen Extra Strength) 500 MG PO Q4HP PRN PAIN Docusate Sodium 100 MG PO DAILYP PRN BM Is this assessment r/t stroke? No OBJECTIVE COMMUNICATION/COGNITION Barriers to communication/cog? Yes Orientation POS: Name, Other (BIRTHDAY). NEG: Place, Day, Date, Year. Follows Commands POS: Follows 1-step commands. NEG: Follows 2-step commands. Able to remember swallow strategies? No Intelligibility Good Barriers to communication: DECREASED ORIENTATION. REQUIRES EXTRA PROCESSING TIME. ORAL-MOTOR STRUCTURE/FUNCTION Structure/Function WFL: Labial, Buccal, Lingual, Velar, Mandibular. Facial Asymmetry None Laryngeal Function Strong: Voluntary Cough, Throat Clearing. Vocal Quality Normal Dentition Good dentition RESPIRATORY STATUS/HISTORY Is resp status/hx a concern? Yes Requires Oxygen: FACE MASK OVER STOMA Breathes from mouth? No Risk-fatigue due to comp.resp? Yes DYSPHAGIA SIGNS W/CONSISTENCY Any S/S of Dysphagia? Yes Coughing- Thin (LARGE BOLUS) ASSESSMENT/PLAN ASSESSMENT Impression Mr. Taylor, a 61 year old male, was referred for bedside evaluation of swallow by his physician, Dr. Newsome. Mr. Taylor has a history of aspiration pneumonia that required PEG placement. Mr. Taylor is on a mechanical soft diet with thin liquids at [facility]. He is currently at [place] [facility] the [facility] and all decisions regarding health will be determined by his POA. Mr. Taylor was given the following consistencies: thins via straw, pudding, and mechanical soft. Mr. Taylor did cough with large bolus of thin liquids. It is recommended that Mr. Taylor remain on current diet of mechnical soft diet with ground meats, thin liquids via straw. It is recommended that Mr. Taylor be evaluated by MBS to rule out silent aspiration. Medications should be crushed in pudding/applesauce. The need for speech therapy will be determined based on results of MBS. PLAN RECOMMENDATIONS Further skill serv. indicated Yes Pending instrumental exam res. MBS Diet: MECHANICAL SOFT/THINS SWALLOW GUIDELINES Standard Aspiration Prec., Assist w/All Meals, SIT UPRIGHT DURING MEALS AND FOR 30 MINUTES AFTER PATIENT/CAREGIVER SUPERVISOR AGENCY APPOINTMENTS educated on Diet Consistency, Swallow Guidelines Rehab Medicare G Code Plan Medicare/G Code eligible? 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
--- NOTE | 2016-11-27 11:59 | ST BEDSIDE DYSPHAGIA EVAL ---
SUBJECTIVE-DYSPHAGIA Date: 11/27/16 Time: 1100 Eval Type: Initial Certification - Admitted Date: 11/27/16 Primary Diagnosis: ASPIRATION PNEUMONIA Reason for Consult: PNEUMONIA Pt/Caregiver Concerns: R/O ASPRIATION Onset of symptoms- 11/27/16 0800 MEDICAL HX UNKNOWN Symptoms have worsened? NO improved? NO resolved? NO since onset. Current Diet: MECHANICAL SOFT/THINS Allergies Coded Allergies: No Known Allergies (04/17/16) Home Medications Active Scripts Levofloxacin (Levaquin 750mg) 750 MG PO DAILY #10 TAB Prov: 08/28/16 Reported Medications DONEPEZIL HCL (Aricept 23MG) 10 MG PO DAILY Atorvastatin Calcium (Atorvastatin) 20 MG PO DAILY Levofloxacin (Levaquin 750mg) 750 MG PO DAILY Polyethylene Glycol 3350 (Miralax) 17 GM PO DAILY QUETIAPINE FUMARATE (Quetiapine Fumarate) 100 MG PO DAILY Valproic Acid (Valproic Acid Syrup 500MG/10ML) 250 MG FT DAILY Zinc Sulfate (Zinc Sulfate 220MG) 220 MG PO DAILY SERTRALINE HYDROCHLORIDE (Zoloft 100MG) 100 MG PO DAILY MEMANTINE HCL (Namenda 10MG) 10 MG PO BID Ascorbic Acid (Vitamin C) 500 MG PO BID Carbidopa/Levodopa (Carbidopa-Levodopa 25-100 Tab) 1 TAB PO TID MORPHINE SULFATE SR/ER (Morphine Sulfate ER) 15 MG PO Q12 TRAMADOL HCL (Tramadol) 50 MG PO TIDP PRN PAIN Acetaminophen (Acetaminophen Extra Strength) 500 MG PO Q4HP PRN PAIN Docusate Sodium 100 MG PO DAILYP PRN BM Is this assessment r/t stroke? No OBJECTIVE COMMUNICATION/COGNITION Barriers to communication/cog? Yes Orientation POS: Name, Other (BIRTHDAY). NEG: Place, Day, Date, Year. Follows Commands POS: Follows 1-step commands. NEG: Follows 2-step commands. Able to remember swallow strategies? No Intelligibility Good Barriers to communication: DECREASED ORIENTATION. REQUIRES EXTRA PROCESSING TIME. ORAL-MOTOR STRUCTURE/FUNCTION Structure/Function WFL: Labial, Buccal, Lingual, Velar, Mandibular. Facial Asymmetry None Laryngeal Function Strong: Voluntary Cough, Throat Clearing. Vocal Quality Normal Dentition Good dentition RESPIRATORY STATUS/HISTORY Is resp status/hx a concern? Yes Requires Oxygen: FACE MASK OVER STOMA Breathes from mouth? No Risk-fatigue due to comp.resp? Yes DYSPHAGIA SIGNS W/CONSISTENCY Any S/S of Dysphagia? Yes Coughing- Thin (LARGE BOLUS) ASSESSMENT/PLAN ASSESSMENT Impression Mr. Taylor, a 61 year old male, was referred for bedside evaluation of swallow by his physician, Dr. Newsome. Mr. Taylor has a history of aspiration pneumonia that required PEG placement. Mr. Taylor is on a mechanical soft diet with thin liquids at [facility]. He is currently at [place] [facility] the [facility] and all decisions regarding health will be determined by his POA. Mr. Taylor was given the following consistencies: thins via straw, pudding, and mechanical soft. Mr. Taylor did cough with large bolus of thin liquids. It is recommended that Mr. Taylor remain on current diet of mechnical soft diet with ground meats, thin liquids via straw. It is recommended that Mr. Taylor be evaluated by MBS to rule out silent aspiration. Medications should be crushed in pudding/applesauce. The need for speech therapy will be determined based on results of MBS. PLAN RECOMMENDATIONS Further skill serv. indicated Yes Pending instrumental exam res. MBS Diet: MECHANICAL SOFT/THINS SWALLOW GUIDELINES Standard Aspiration Prec., Assist w/All Meals, SIT UPRIGHT DURING MEALS AND FOR 30 MINUTES AFTER PATIENT/CAREGIVER RECEIVING CLERK educated on Diet Consistency, Swallow Guidelines Rehab Medicare G Code Plan Medicare/G Code eligible? 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
--- NOTE | 2016-11-27 15:02 | RADIOLOGY REPORT PS360 ---
CTA-CHEST HISTORY: SOA Patient Age: 61 years: Male Ordering Physician: Inderjit Newsome MD TECHNIQUE: Axial Helical CT scanning performed the chest following 60 cc [id number] followed by 40 and normal saline. Thick slab MIPP Sagittal and coronal performed along with standard axial reconstructions on CT workstation COMPARISON :March 2016 CTA chest FINDINGS Mediastinum. No Pulmonary embolism evident. Very good visualization of the central pulmonary arteries. There motion artifact degrades images toward the lower lung conrad and lower branches but no no significant suspicious areas for pulmonary embolism. The prominent pulmonary artery trunk most likely reflecting chronic pulmonary artery hypertension. The aortic root & ascending aorta measures up to 4.6 cm diameter similar to previous study. No dissection evident. Heart normal size. No pericardial effusion. Extensive coronary artery plaque and calcification incidentally noted on CTA chest study.. No significant mediastinal adenopathy or mass scattered small nodes throughout the distended LUNG CONRAD. Moderate Infiltrate most evident towards posterior LLL/left lung base. Only scant atelectasis infiltrate towards right lung base COPD. Emphysematous changes again noted with Diffuse interstitial coarsening is similar to previous study... Almost reticular nodular in character Suggestion of scattered additional very subtle groundglass infiltrates, bilaterally . . Mild thickening of central airways and borderline bronchiectatic changes toward lung bases. . There is Is definite overall marked improvement in the bibasilar consolidation since March 2016,. There is clearly improvement most notable at right lung base-no progression of disease versus March..Disagree body of [facility] report regarding these feature (suspect [facility] report comments reflect March rather than current current study) . Also we see no pleural effusions on today's study. notable secretions layering at the gris and proximal airways addition noted on today's study... Also note that there is quite narrowed appearance at tracheostomy. I do not see a tracheostomy tube and on CT images; & the tracheostomy tract is quite thin measuring 2 mm transverse on today's CT axial image 117.. Clinical correlation required.. This area not included on the reconstruction images At upper abdomen large amount of plaque at nearly occluding the right common hepatic artery incidentally noted. Mild/moderate plaque and stenosis at the origin of the renal arteries bilaterally. .. Sludge in generous size gallbladder. IMPRESSION. 1. No evidence of pulmonary embolism. Motion artifact degrades images through the lung bases but no suspicious findings for PE. 2. Mild/moderate Pneumonic infiltrate left lower lobe. Somewhat reticular nodular infiltrate seen throughout posterior left lung base May indeed reflect aspiration pneumonia changes as suggested by [facility] report (Note: The dense consolidation seen at righ lung base > left lung base noted on previous March 2016 CT has shown marked improvement in the interval.. Also No pleural effusions seen today.-Note these are discrepancy comments versus body of [facility] report) 3. Chronic lung changes. Mild thickening of airways.. Question some subtle vague groundglass areas of infiltrate seen at lung conrad elsewhere bilaterally. 4. Moderate Secretions seen at the central airway most notable at gris and just below gris 5.*Very narrowed appearance at the tracheostomy site which narrows to 2 mm or less on the CT images. Requires clinical correlation 6. Stable dilatation of the aneurysmal dilatation aortic root since March.. Measures4.7 cm. Diameter 7. Prominent coronary artery plaque & calcification incidentally noted. Prominent plaque nearly occluded the right common hepatic artery incidentally noted as well. 8. Probable sludge within borderline distended gallbladder Harper/Please send copy to [place]. [facility] report tracking
[2016-11-27 17:35] VITALS: BP 102/66
[2016-11-27 19:31] VITALS: BP 120/79
[2016-11-27 20:52] VITALS: BP 120/79
--- NOTE | 2016-11-27 20:53 | HISTORY AND PHYSICAL REPORT ---
Demographics: Admit date: 11/27/16 Chief complaint: fever PRIMARY DIAGNOSIS: ASPIRATION PNEUMONIA Allergies: Coded Allergies: No Known Allergies (04/17/16) History of present illness: History of present illness: this wm who has wilkerson of sacral decubitus and has had long course of care in recent past at - [facility] and was noted with change in mental status and low sat with dec po intake - Past medical history: Family HX Family Hx Insignificant Yes Immunization HX DT/Tetanus Unknown Flu Refused Pneumonia Unknown TB Test in last year Yes Result Unknown General CAD? No Angina: No GA: No Hypertension? Yes Hyperlipidemia? Yes CHF? No DVT? No PE? No COPD? No Asthma? No Anemia? No GERD? No Gastric ulcers? No GI Bleed? No Hernia? No Thyroid Problems? No Hypothyroidism? No CVA? No Seizures? Yes Diabetes? Yes Insulin Dependent: No Insulin Pump: No Home FSBS? Yes Renal Insuffiency? No UTI? No Stones? No BPH? No GB Disease: No Nephritic Syndrome? No Asplenia? No Hepatitis? No Sickle Cell Disease? No Arthritis? No Migraines? No Cataracts? No Glaucoma? No MRSA? No HIV? No TB? No Anxiety? Yes Depression? No Cancer? No More? Yes Additional hx: dementia Past Surgical HX Previous Surgery?Y PEG PLACEMENT TRACH PLACEMENT Current home meds: Reported Medications Atorvastatin Calcium (Atorvastatin) 20 MG PO DAILY Levofloxacin (Levaquin 750mg) 750 MG PO DAILY QUETIAPINE FUMARATE (Quetiapine Fumarate) 100 MG PO QHS Valproic Acid (Valproic Acid Syrup 500MG/10ML) 20 ML PO BID SERTRALINE HYDROCHLORIDE (Zoloft 100MG) 200 MG PO DAILY MORPHINE SULF IMMED.RELEASE (Morphine Sulfate) 7.5 MG PO TID Sertraline Hcl (Zoloft 50MG) 50 MG PO DAILY ALBUTEROL-IPRATROPIUM (Iprat-Albut 0.5-3(2.5) MG/3 Ml) 3 ML IH Q12HP PRN SHORTNESS OF AIR Valproic Acid (As Sodium Salt) (Valproic Acid) 10 ML PO 1300 DONEPEZIL HCL (Aricept 23MG) 10 MG PO DAILY Polyethylene Glycol 3350 (Miralax) 17 GM PO DAILY Zinc Sulfate (Zinc Sulfate 220MG) 220 MG PO DAILY MEMANTINE HCL (Namenda 10MG) 10 MG PO BID Ascorbic Acid (Vitamin C) 500 MG PO BID Carbidopa/Levodopa (Carbidopa-Levodopa 25-100 Tab) 1 TAB PO TID TRAMADOL HCL (Tramadol) 50 MG PO TIDP PRN PAIN Acetaminophen (Acetaminophen Extra Strength) 500 MG PO Q4HP PRN PAIN Docusate Sodium 100 MG PO DAILYP PRN BM Social Hx: Smoking HX Tobacco No Type Cigarettes Packs/day N/A Are you/the child exposed to second-hand smoke: No Alcohol Alcohol: No Hx of Drug Use Drug Use? No Patien't marital status is Patient's support system is good Review of systems: Constitutional see HPI, fever, weakness. Eyes No: drainage. Ears, Nose, Mouth, Throat No ear discharge, No epistaxis, No throat pain Respiratory cough, shortness of breath, wheezing. Cardiovascular No chest pain, No palpitations Gastrointestinal/Abdominal see HPI, No diarrhea, poor appetite, poor fluid intake Genitourinary No: dysuria, frequency, hesitancy, hematuria. Musculoskeletal No: back pain, joint pain, joint swelling, neck pain. Skin No: rash. Neurological No: headache, seizure disorder. Psychiatric No: no symptoms reported. Exam: Lab data for last 24 hours: Laboratory Tests 11/28/16 0625: POC Glucose 114 H 11/27/16 2055: POC Glucose 92 11/27/16 1114: POC Glucose 96 Admission vital signs: 1ST Vital Signs Result Date Time Pulse Ox 64 11/27 0342 B/P 139/80 11/27 0342 Temp 101.1 11/27 0342 Pulse 133 11/27 0342 Resp 28 11/27 034 O2 Flow Rate 15 11/27 0420 O2 Delivery OXYGEN 11/27 09 Exam General appearance: awake, lethargic Eyes: anicteric, PERRLA ENT: dry mucous membranes Neck: no JVD Cardiovascular: regular rate & rhythm, murmur Respiratory: diminished breath sounds, rhonchi ABD: soft Genitourinary: catheter in place Extremities: edema Musculoskeletal: hard to eval Skin: dry 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 Aortic aneurysm 2. Dysphagia 3. Aspiration pneumonia Plan: will admit with iv abx and swallow eval at 0720
[2016-11-28 03:56] VITALS: BP 128/82
[2016-11-28 07:00] LABS: LYMPH # 1.6 K/mm3 (0.7-4.5); LYMPH % 14.2 % (10-50)
[2016-11-28 07:17] LABS: HEMOGLOBIN 9.6 g/dL (14.1-18.0)
[2016-11-28 08:30] VITALS: BP 136/77
--- NOTE | 2016-11-28 08:49 | ACUTE CARE PROGRESS NOTE (QUA) ---
Progress Notes Subjective Date 11/28/16 Time 0844 Patient/family reports: feeling better Nursing reports: alert, no complaints Objective Findings Laboratory Tests 11/28/16 0630: Sodium 151 *H, Potassium 3.1 L, Chloride 112 H, Carbon Dioxide 29, BUN 20 H, Creatinine 0.7 L, Estimated Creat Clear 128, Estimated GFR (MDRD) 115, Glucose 117 H, Calcium 8.2 L, WBC 11.2 H, RBC 3.89 L, Hgb 9.6 L, Hct 32.8 L, MCV 84.2, RDW 17.1, Plt Count 312, MPV 6.6 L, Gran % 75.8, Gran # 8.5 H, Lymphocytes % 14.2, Monocytes % 8.8, Eosinophils % 0.6, Basophils % 0.6, Lymphocytes # 1.6, Monocytes # 1.0, Eosinophils # 0.1, Basophils # 0.1, PUBS MCHC 29.0 L, MCH 24.4 L 11/28/16 0625: POC Glucose 114 H 11/27/16 2055: POC Glucose 92 11/27/16 1114: POC Glucose 96 Vital Signs Date Time Temp Pulse Resp B/P Pulse O2 O2 Flow FiO2 Ox Delivery Rate 11/28 0754 16 11/28 0747 98.7 73 16 128/82 90 10 11/28 0628 10 11/28 0550 10 11/28 0550 10 11/28 0550 90 OXYGEN 10 11/28 0526 10 11/28 0356 10 11/28 0356 98.7 73 16 128/82 90 OXYGEN 10 11/28 0350 10 11/28 0311 10 11/28 0157 10 11/28 0112 10 11/28 0036 10 11/28 0036 87 OXYGEN 10 11/28 0011 10 11/27 2300 10 11/27 2200 10 11/27 2130 10 11/27 2107 18 11/28 2051 10 11/28 2051 98.5 72 18 120/79 89 10 11/27 1931 11/27 193 98.5 72 18 120/79 89 OXYGEN 10 11/27 1903 15 11/27 1737 15 11/27 1735 97.8 84 16 102/66 91 OXYGEN 15 11/27 1601 15 11/27 1303 15 11/27 1051 92 OXYGEN 10 11/27 946 10 11/27 946 10 11/27 946 92 15 11/27 946 92 OXYGEN 10 11/27 921 78 11/27 921 98.1 78 18 147/100 11/27 921 92 OXYGEN 11/27 921 98.1 78 18 147/100 92 OXYGEN 11/28 0759 97.8 83 22 142/32 93 15 Current Medications Morphine Sulfate 0 .STK-MED ONE PO (DC) Morphine Sulfate 0 .STK-MED ONE PO (DC) Albuterol 2.5 MG Q6H6 INH Diagnostic Test (Pha) 1 EACH W/MEALS&HS FS Insulin Human [rDNA origin] SEE ADMIN CRITERIA FOR LOW INTENSITY SS W/MEALS&HS SC Morphine Sulfate 0 .STK-MED ONE PO (DC) Piperacillin Sod/Tazobactam Sod 3.375 GM Q6 IV Sodium Chloride 50 ML Sodium Chloride 1,000 ML .STK-MED ONE IV (DC) Carbidopa/Levodopa 1 TABLET TID PO Clindamycin Phosphate 900 MG Q8H IV Sodium Chloride 100 ML Donepezil HCl 10 MG DAILY PO Memantine 10 MG BID PO Morphine Sulfate 15 MG Q12 PO Sodium Chloride 10 ML PRN PRN IV Valproic Acid 250 MG DAILY PO Docusate Sodium 100 MG DAILYP PRN PO Tramadol HCl 50 MG TIDP PRN PO Acetaminophen 650 MG Q4HP PRN PO Ondansetron HCl 4 MG Q6HP PRN IV Sodium Chloride 1,000 ML .[id number] IV Clindamycin Phosphate 900 MG ONCE ONE IV (DC) Sodium Chloride 100 ML Piperacillin Sod/Tazobactam Sod 3.375 GM ONCE ONE IV (DC) Sodium Chloride 50 ML Sodium Chloride 10 ML PRN PRN IV (DC) Sodium Chloride 10 ML PRN PRN IV (DC) Sodium Chloride 10 ML PRN PRN IV (DC) Last VS-Temp:98.7 B/P:128/82 Pulse:73 Resp:16 SaO2:90 OXYGEN Last weight lbs:178 oz:4 K.854 Method:Bed Scales Exam General appearance: normal appearance, no acute distress Eyes: normal exam ENT: normal exam Neck: normal inspection, full range of motion, trach stoma present Cardiovascular: normal exam, regular rate & rhythm, normal peripheral pulses Respiratory: on oxygen, diminished breath sounds ABD: normal exam, soft Genitourinary: catheter in place Extremities: normal exam Musculoskeletal: normal exam Skin: breakdown noted toxic dressing in place, stage I on bilateral heels Neuro: normal exam, alert, speech clear Reviewed: allergies, medications, vital signs, lab results, radiology report, consult note Assessment/Plan Problem List 1. Aortic aneurysm Qualifiers: Aortic location: thoracic aorta Presence of rupture: without rupture Qualified Code: I71.2 - Thoracic aortic aneurysm, without rupture 2. Dysphagia 3. Aspiration pneumonia Qualifiers: Aspiration pneumonia type: unspecified Laterality: bilateral Lung location: unspecified part of lung Qualified Code: J69.0 - Pneumonitis due to inhalation of food and vomit Patient condition Stable Plan: continue current care This inpt stay is expected to cross 2 MNs from start of care Yes Comments: rounded with tyson evans barium swallow today, surya dc back to [facility] in am at 0849
[2016-11-28 16:30] VITALS: BP 126/85
[2016-11-28 19:18] VITALS: BP 127/76
[2016-11-29 00:06] VITALS: BP 128/71
[2016-11-29 03:27] VITALS: BP 139/78
[2016-11-29 07:44] LABS: HEMOGLOBIN 9.5 g/dL (14.1-18.0); LYMPH % 22.5 % (10-50)
[2016-11-29 07:59] VITALS: BP 139/78; BP 144/76
[2016-11-29 08:30] VITALS: BP 144/76
--- NOTE | 2016-11-29 08:49 | ACUTE CARE PROGRESS NOTE (QUA) ---
Progress Notes Subjective Date 11/29/16 Time 0845 Note doing better Patient/family reports: feeling better Nursing reports: cough Objective Findings Last VS-Temp:98.7 B/P:139/78 Pulse:72 Resp:18 SaO2:90 OXYGEN Last weight lbs:178 oz:4 K.854 Method:Bed Scales Exam General appearance: alert Eyes: PERRLA ENT: dry mucous membranes Neck: no JVD Cardiovascular: regular rate & rhythm, murmur Respiratory: no respiratory distress, diminished breath sounds ABD: soft Genitourinary: catheter in place Extremities: edema Musculoskeletal: no focal changes Skin: dry Neuro: alert Reviewed: allergies, medications, vital signs, lab results, radiology report Assessment/Plan Problem List 1. Aortic aneurysm 2. Dysphagia 3. Aspiration pneumonia Patient condition Improving Plan: continue current care This inpt stay is expected to cross 2 MNs from start of care Yes Comments: will have modified swallow exam today and think uti related to chronic marshall and doing better resp status at 0859
[2016-11-29 12:30] VITALS: BP 141/83
--- NOTE | 2016-11-29 13:06 | ST MODIFIED BARIUM SWALLOW ---
SUBJECTIVE-DYSPHAGIA Date: 11/29/16 Time: 1100 Eval Type: Re-Evaluation/Revised POC - Admitted Date: 11/27/16 Primary Diagnosis: ASPIRATION PNEUMONIA Reason for Consult: DYSPHAGIA Pt/Caregiver Concerns: RULE OUT SILENT ASPIRATION Onset of symptoms- 11/27/16 0800 MEDICAL HX UNKNOWN Symptoms have worsened? NO improved? NO resolved? NO since onset. Current Diet: NPO Allergies Coded Allergies: No Known Allergies (04/17/16) Home Medications Reported Medications Atorvastatin Calcium (Atorvastatin) 20 MG PO DAILY Levofloxacin (Levaquin 750mg) 750 MG PO DAILY QUETIAPINE FUMARATE (Quetiapine Fumarate) 100 MG PO QHS Valproic Acid (Valproic Acid Syrup 500MG/10ML) 20 ML PO BID SERTRALINE HYDROCHLORIDE (Zoloft 100MG) 200 MG PO DAILY MORPHINE SULF IMMED.RELEASE (Morphine Sulfate) 7.5 MG PO TID Sertraline Hcl (Zoloft 50MG) 50 MG PO DAILY ALBUTEROL-IPRATROPIUM (Iprat-Albut 0.5-3(2.5) MG/3 Ml) 3 ML IH Q12HP PRN SHORTNESS OF AIR Valproic Acid (As Sodium Salt) (Valproic Acid) 10 ML PO 1300 DONEPEZIL HCL (Aricept 23MG) 10 MG PO DAILY Polyethylene Glycol 3350 (Miralax) 17 GM PO DAILY Zinc Sulfate (Zinc Sulfate 220MG) 220 MG PO DAILY MEMANTINE HCL (Namenda 10MG) 10 MG PO BID Ascorbic Acid (Vitamin C) 500 MG PO BID Carbidopa/Levodopa (Carbidopa-Levodopa 25-100 Tab) 1 TAB PO TID TRAMADOL HCL (Tramadol) 50 MG PO TIDP PRN PAIN Acetaminophen (Acetaminophen Extra Strength) 500 MG PO Q4HP PRN PAIN Docusate Sodium 100 MG PO DAILYP PRN BM Is this assessment r/t stroke? No OBJECTIVE COMMUNICATION/COGNITION Barriers to communication/cog? Yes Orientation POS: Name, Other (BIRTHDAY). NEG: Place, Day, Date, Year. Follows Commands POS: Follows 1-step commands. NEG: Follows 2-step commands. Able to remember swallow strategies? No Intelligibility Good Barriers to communication: DECREASED ORIENTATION. REQUIRES EXTRA PROCESSING TIME. ORAL-MOTOR STRUCTURE/FUNCTION Structure/Function WFL: Labial, Buccal, Lingual, Velar, Mandibular. Facial Asymmetry None Laryngeal Function Strong: Voluntary Cough, Throat Clearing. Vocal Quality Normal Dentition Good dentition RESPIRATORY STATUS/HISTORY Is resp status/hx a concern? Yes Requires Oxygen: FACE MASK OVER STOMA Breathes from mouth? No Risk-fatigue due to comp.resp? Yes DYSPHAGIA SIGNS W/CONSISTENCY Any S/S of Dysphagia? Yes VIDEO SWALLOW REPORT Radiologist: Mathew Allen MD Level of consciousness: Alert Position (degrees): 90 ORAL STAGE Consistencies used for study: Thin, [place], Honey, Pudding, Pureed, Mechanical Soft - WFL: Bolus Formation:, Initiation of Swallow:. - No: Juan.spilled into pharynx, Oral Residue. PHARYNGEAL STAGE Consistencies used for study: Thin, [place], Honey, Pudding, Pureed, Mechanical Soft Delayed Swallow Reflex? No Epiglottic Closure WFL Penetration-Laryngeal Vestibul Yes (THINS AND NECTAR) - Aspiration? Yes Type Before the swallow, Degree of aspiration (small), Silent Consistencies aspirated Thin Reason for aspiration: POOR BACK OF TONGUE CONTROL Pharyngeal Residue? Yes (CLEARED WITH DRY SWALLOW) ASSESSMENT/PLAN ASSESSMENT Impression Mr. Taylor, a 61 year old male, was referred for a MBS after suscpicions of silent aspiration. He has multiple comorbitities. He is currently NPO after requiring suction from stoma during breakfast. He has difficulty with following directions and has decreased orientation. Mr. Taylor was given the following consistencies: thins via straw and open cup, nectar, honey, pudding, pureed, and mechanical soft. The following signs of dysphagia were noted: silent aspiration of thin liquids, deep penetration into laryngeal vestibule with nectar, and increased oral prep time. It is recommended that Mr. Taylor be placed on mechanical soft diet with ground meats with gravy/ sauce with honey thick liquids. Speech therapy is not recommended due to difficulty following directions. Due to risk of silent aspiration, diet upgrades should be determined by MBS only. Thank you for your consult. PLAN SWALLOW GUIDELINES High Aspiration Risk, Liquids Given (Cup Only), Crush Meds as Allowed, Oral Care Pre/After Meals, Assist w/All Meals, Eat at Slow Rate PATIENT/CAREGIVER EDUCATION Able-recall/restate what told? No RN educated on Diet Consistency, Swallow Guidelines Rehab Medicare G Code Plan Medicare/G Code eligible? Yes Therapy Discipline Plan: WOOD AND HARDWARE OUTFITTER PLAN OF CARE G Code Current Status: SWALLOWING (G8996) Current Status Modifier: 40%-59% IMPAIRED (CK) G Code Goal Status: SWALLOWING (G8997) Goal Status Modifier: 40%-59% IMPAIRED (CK) G Code Discharge Status: SWALLOWING (G8998) Discharge Status Modifier: 40%-59% IMPAIRED (CK) If pt's [facility] benefits exhausted If patient's Medicare benefits are exhausted, please review: #Min Spent: 45 at 1305
[2016-11-29 13:52] VITALS: BP 144/76
[2016-11-29] MEDS ORDERED: CLINDAMYCI900 MG/51 IV (13:54)
--- NOTE | 2016-11-29 13:59 | DISCHARGE SUMMARY STANDARD ---
Demographics Admit date: 11/27/16 Discharge date: 11/29/16 History of present illness History of present illness this wm who has wilkerson of sacral decubitus and has had long course of care in recent past at - he was at [facility] and was noted with change in mental status and low sat with dec po intake - Hospital Course Hospital Course: pt with improvement with ivf and abx and resp treatment and was seen by speech therapy with abn swallowing tasia Taylor, a 61 year old male, was referred for a MBS after suscpicions of silent aspiration. He has multiple comorbitities. He is currently NPO after requiring suction from stoma during breakfast. He has difficulty with following directions and has decreased orientation. Mr. Taylor was given the following consistencies: thins via straw and open cup, nectar, honey, pudding, pureed, and mechanical soft. The following signs of dysphagia were noted: silent aspiration of thin liquids, deep penetration into laryngeal vestibule with nectar, and increased oral prep time. It is recommended that Mr. Taylor be placed on mechanical soft diet with ground meats with gravy/ sauce with honey thick liquids. Speech therapy is not recommended due to difficulty following directions. Due to risk of silent aspiration, diet upgrades should be determined by MBS only. Thank you for your consult. PLAN SWALLOW GUIDELINES High Aspiration Risk, Liquids Given (Cup Only), Crush Meds as Allowed, Oral Care Pre/After Meals, Assist w/All Meals, Eat at Slow Rate PATIENT/CAREGIVER EDUCATION Able-recall/restate what told? No RN educated on Diet Consistency, Swallow Guidelines Rehab Medicare G Code Plan Medicare/G Code eligible? 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 Aortic aneurysm 2. Dysphagia 3. Aspiration pneumonia 4. UTI (urinary tract infection) Medications Medications: Discharge meds are as noted. Follow up Follow up in office in: 2 WEEKS with: Albino Rehman Comment: will see at ecf and see ent as op at 2930
--- NOTE | 2016-11-29 13:59 | DISCHARGE SUMMARY STANDARD ---
Demographics Admit date: 11/27/16 Discharge date: 11/29/16 History of present illness History of present illness this wm who has wilkerson of sacral decubitus and has had long course of care in recent past at - he was at [facility] and was noted with change in mental status and low sat with dec po intake - Hospital Course Hospital Course: pt with improvement with ivf and abx and resp treatment and was seen by speech therapy with abn swallowing tasia Taylor, a 61 year old male, was referred for a MBS after suscpicions of silent aspiration. He has multiple comorbitities. He is currently NPO after requiring suction from stoma during breakfast. He has difficulty with following directions and has decreased orientation. Mr. Taylor was given the following consistencies: thins via straw and open cup, nectar, honey, pudding, pureed, and mechanical soft. The following signs of dysphagia were noted: silent aspiration of thin liquids, deep penetration into laryngeal vestibule with nectar, and increased oral prep time. It is recommended that Mr. Taylor be placed on mechanical soft diet with ground meats with gravy/ sauce with honey thick liquids. Speech therapy is not recommended due to difficulty following directions. Due to risk of silent aspiration, diet upgrades should be determined by MBS only. Thank you for your consult. PLAN SWALLOW GUIDELINES High Aspiration Risk, Liquids Given (Cup Only), Crush Meds as Allowed, Oral Care Pre/After Meals, Assist w/All Meals, Eat at Slow Rate PATIENT/CAREGIVER EDUCATION Able-recall/restate what told? No RN educated on Diet Consistency, Swallow Guidelines Rehab Medicare G Code Plan Medicare/G Code eligible? Yes Therapy Discipline Plan: SENIOR BUDGET ANALYST PLAN OF CARE G Code Current Status: SWALLOWING (G8996) Current Status Modifier: 40%-59% IMPAIRED (CK) G Code Goal Status: SWALLOWING (G8997) Goal Status Modifier: 40%-59% IMPAIRED (CK) G Code Discharge Status: SWALLOWING (G8998) Discharge Status Modifier: 40%-59% IMPAIRED (CK) If pt's [facility] benefits exhausted If patient's Medicare benefits are exhausted, please review: #Min Spent: 45 at 1305 <Electronically signed by RICHARD LOZANO> Discharge diagnoses Problem List 1. Aortic aneurysm 2. Dysphagia 3. Aspiration pneumonia 4. UTI (urinary tract infection) Medications Medications: Discharge meds are as noted. Follow up Follow up in office in: 2 WEEKS with: Albino Rehman Comment: will see at ecf and see ent as op at [phone]
--- NOTE | 2016-11-29 14:11 | RADIOLOGY REPORT PS360 ---
ESOPHAGUS W/CINERADIOGRAPHY: 11/29/2016 2:06 PM CLINICAL HISTORY: Pneumonia, Aspiration, dysphasia ORDERING PHYSICIAN: Curt Newsome MD PATIENT AGE: 61 years COMPARISON: TECHNIQUE: Patient administered varying consistencies of barium contrast, while viewed in lateral position under real-time fluoroscopy with cine recording. FLUOROSCOPY TIME: 3 minutes and 8 seconds The study was performed in conjunction with speech pathologist. Please see that report & recommendations. FINDINGS: Patient was given varying consistencies of barium. This consisted of thin, nectar, honey, pudding, puree, mechanical soft. There was laryngeal aspiration with thin and penetration with nectar. Aspiration was silent and cleared with dry swallow. Was difficulty in forming a bolus with mechanical soft IMPRESSION: Aspiration with thin and penetration with nectar consistency Please see speech pathologist report and recommendations.
== END 2016-11-29 16:20 | DRG 178 ==
LOC: ER 03:40 → 2ND 07:41 → ER 07:41 → 2ND 09:00
PROVIDERS: Emergency Medicine
DX: J69.0 Pneumonitis due to inhalation of food and vomit (principal); N39.0 Urinary tract infection, site not specified; R13.10 Dysphagia, unspecified; I10 Essential (primary) hypertension; E11.9 Type 2 diabetes mellitus without complications; I71.4 Abdominal aortic aneurysm, without rupture
CPT/HCPCS: J2543; Q9967

== ENCOUNTER 2017-02-14 06:40 | Emergency (ER) | payer MEDICARE ==
[~2017-02-14] VITALS: Ht 180.3 cm; Wt 81.6 kg
[~2017-02-14 06:40] MED LIST changes: +ACETAMINOPHEN500 M3 PO; +ARICEPT23 MG PO; +CARBIDOPA AND L1 TA2 PO; +CLINDAMYCI900 MG/51 IV; +DOCUSATE SODIU100 MG PO; +IPRATROPIUM BROM3 M1 IH; +MIRALAX17 GM/PACK PO; +MORPHINE SULFAT15 M2 PO; +NAMENDA10 MG PO; +PHARMASSURE VI500 MG PO; +QUETIAPINE FUM100 MG PO; +TRAMADOL 50MG T50 M1 PO; +VALPROIC A250 MG/5 M PO; +VALPROIC A500 MG/10 PO; +ZINC SULFATE 2220 MG PO; +ZOLOFT 50MG TAB50 MG PO; +ZOLOFT100 MG PO
--- OUTSIDE RECORDS SUMMARY | 2017-02-14 07:02 | External Medical Summary Rpt | Continuity of Care Document ---
Author Author Organization Address Unknown Phone Unavailable Care Team Providers Care Habitat Conservation Planner Name Role Phone , Unavailable Unavailable EMS Current Medications Section EMS Allergies and Adverse Reactions EMS Past Medical History Medications Administered Section EMS Procedures Performed EMS Vital Signs EMS Patient Care Report Narrative Called for transport of male patient to [facility] from [place], he has pressure ulcer on his coccyx, Parkinson s, and dementia. Upon arrival to [place] patient was laying in his bed and was moved drawsheet x3 to the stretcher. He was secured to the stretcher straps x3. Patient complained of pain Upon movement that was 8/10. Upon entrance of the ambulance baseline vitals were taken and monitored. Vitals remained stable and unchanged during transport. Patient was taken to the specialty clinic on the first floor at [facility] where he remained secured to the stretcher due to not being able to sit due to a pressure ulcer on his bottom. Patient medications were unable to be obtained due to his dementia, also was unable to sign due to dementia.
--- OUTSIDE RECORDS SUMMARY | 2017-02-14 07:02 | External Medical Summary Rpt | Continuity of Care Document ---
Author Author Organization Address Unknown Phone Unavailable Care Team Providers Care Communications Systems Engineer Name Role Phone , Unavailable Unavailable EMS Current Medications Section EMS Allergies and Adverse Reactions EMS Past Medical History Medications Administered Section EMS Procedures Performed EMS Vital Signs EMS Patient Care Report Narrative D-Responded to [facility] for scheduled transfer to [facility] [address] for Neuro appointment. C-Pt being transported for neuro follow up pre-scheduled from [facility]. Pt does not ambulate due to paralyzed from waste down and contracted from past medical hx. Pt does have chronic back pain. 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 A-Pt appears to be in severe pain upon any movement. Pt moved to stretcher per sheet per 4 person lift and Pt screamed in pain. Once in ambulance every effort was exhausted to make Pt comfortable during transport with pillows and blankets for added padding. R-Pt vitals monitored. T- Pt moved to and from stretcher per sheet with 4 person lift. M-Pt required ambulance transport due to paralyzed, contractures, and severe pain. Pt was being transported to clinic and immediately after turning onto roadway Pt began to scream in pain with his back. Blankets and pillows were tried for added comfort. Pt became extremely irritate and unable to calm down. Pt was screaming and cussing at crew. Pt requested to go back to long-term. Pt was tried to calm down by speaking to him and explaining how the ride was rough but we would take it slow and Pt still refused to go to and still was very irritate and cussing crew. Attempts was made to contact NIC Moreno at the office in which voice mail explained that he was out of the office til 02-20-17. Attempted the number on voice mail which referred us back to his office. Attempts was made to contact [facility] and no answer was obtained from facility. Attempts was made from family MD Dr. Newsome with no answer due to being out to lunch. The decision was made to transport Pt back to [facility] was made due to pt being irritate and in severe pain. Once arriving at [facility] staff advised of situation and agreed to bring Pt back to his room. Pt sister on scene and stated she knew the Pt wasn t going to be able to tolerate the ride to [place]. Pt care turned back over to staff at [facility].
--- OUTSIDE RECORDS SUMMARY | 2017-02-14 07:02 | External Medical Summary Rpt | Continuity of Care Document ---
Author Author Organization Address Unknown Phone Unavailable Care Team Providers Care [place] Artist Name Role Phone , Unavailable Unavailable EMS Current Medications Section EMS Allergies and Adverse Reactions EMS Past Medical History Medications Administered Section EMS Procedures Performed EMS Vital Signs EMS Patient Care Report Narrative Called for transport of male patient to [facility] from [place], he has pressure ulcer on his coccyx, Parkinson s, and dementia. Upon arrival to [place] patient was laying in his bed and was moved drawsheet x3 to the stretcher. He was secured to the stretcher straps x3. Patient complained of pain Upon movement that was 8/10. Upon entrance of the ambulance baseline vitals were taken and monitored. Vitals remained stable and unchanged during transport. Patient was taken to the specialty clinic on the first floor at [facility] where he remained secured to the stretcher due to not being able to sit due to a pressure ulcer on his bottom. Patient medications were unable to be obtained due to his dementia, also was unable to sign due to dementia.
--- OUTSIDE RECORDS SUMMARY | 2017-02-14 07:02 | External Medical Summary Rpt | Continuity of Care Document ---
Author Author Organization Address Unknown Phone Unavailable Care Team Providers Care Log Loader Name Role Phone , Unavailable Unavailable EMS Current Medications Section EMS Allergies and Adverse Reactions EMS Past Medical History Medications Administered Section EMS Procedures Performed EMS Vital Signs EMS Patient Care Report Narrative D-Responded to [facility] for scheduled transfer to [facility] for Neuro appointment. C-Pt being transported for neuro follow up pre-scheduled from [facility]. Pt does not ambulate due to paralyzed [...] crew. Pt requested to go back to [facility]. Pt was tried to calm down by [...] his office. Attempts was made to contact [facility] and no answer was obtained from facility. Attempts was made from family MD Dr. Newsome with no answer due to being out to lunch. The decision was made to transport Pt back to [facility] was made due to pt being irritate and in severe pain. Once arriving at [facility] staff advised of situation and agreed to bring Pt back to his room. Pt sister on scene and stated she knew the Pt wasn t going to be able to tolerate the ride to [place]. Pt care turned back over to staff at [facility].
--- OUTSIDE RECORDS SUMMARY | 2017-02-14 07:04 | External Medical Summary Rpt | CCD ---
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 I50.9 HEART 10-04-2016 FAILURE, UNSPECIFIED L89.154 PRESSURE 10-04-2016 ULCER OF SACRAL REGION, STAGE 4 Z79.01 [facility] 10-04-2016 (CURRENT) USE OF ANTICOAGULA NTS Z79.4 [facility] 10-04-2016 (CURRENT) USE OF INSULIN 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) USE OF OPIATE ANALGESIC Z79.899 OTHER LONG 10-04-2016 TERM (CURRENT) DRUG THERAPY Z86.718 PERSONAL 10-04-2016 HISTORY OF OTHER VENOUS THROMBOSIS AND EMBOLISM E11.40 Type 2 07-18-2016 diabetes mellitus with [...] unspecified I10 Essential 07-18-2016 (primary) hypertensio n I82.B19 Acute 07-18-2016 embolism and thrombosis of unspecified subclavian vein J95.03 Malfunction 07-18-2016 of tracheostom y stoma J96.21 Acute and 07-18-2016 chronic respiratory failure with hypoxia J98.11 Atelectasis 07-18-2016 R00.0 Tachycardia 07-18-2016 , unspecified R63.3 Feeding 07-18-2016 difficultie s Z87.01 Personal 07-18-2016 history of pneumonia (recurrent) [...] general adult medical examination without abnormal findings J95.00 UNSPECIFIED 06-26-2016 TRACHEOSTOM Y COMPLICATIO N Z43.0 ENCOUNTER 06-26-2016 FOR ATTENTION TO TRACHEOSTOM Y Z79.84 [facility] 06-26-2016 (CURRENT) USE OF ORAL HYPOGLYCEMI C DRUGS Z86.711 PERSONAL 06-26-2016 HISTORY OF PULMONARY EMBOLISM Z86.73 PERSONAL 06-26-2016 HISTORY OF TRANSIENT ISCHEMIC ATTACK (TIA), AND CEREBRAL INFARCTION WITHOUT RESIDUAL DEFICITS I71.9 AORTIC ANEURYSM OF UNSPECIFIED SITE, WITHOUT RUPTURE J20.9 ACUTE BRONCHITIS, UNSPECIFIED K37 UNSPECIFIED APPENDICITI S L89.90 PRESSURE ULCER OF UNSPECIFIED SITE, UNSPECIFIED STAGE R50.9 FEVER, UNSPECIFIED Results Labs Lab Lab Date Result Refere Interp Status Commen Order Detail nces retati t Range on Gas panel in Arterial blood (11-27-2016 04:07) Arteria Y complet l 017 ed patency 04:07 Wrist artery --pre arteria l punctur e SOURCE R/R complet 017 ed 04:07 Urinalysis dipstick W Reflex Microscopic panel in Urine (11-27-2016 03:54) Bacteri 3+ O complet a 017 ed [Presen 03:54 ce] in Urine sedimen t by Light microsc opy Mucus 1+ NONE complet [Presen 017 ed ce] in 03:54 Urine sedimen t by Light microsc opy Erythro 10-20 0 complet cytes 017 ed [Presen 03:54 ce] in Urine sedimen t by Light microsc opy Epithel 3-5 OCC complet ial 017 ed cells.s 03:54 quamous [Presen ce] in Urine sedimen t by Microsc opy high power field Leukocy 20-50 O complet dar 017 wbc/hpf ed [#/volu 03:54 me] in Urine Urinalysis dipstick W Reflex Microscopic panel in Urine (11-27-2016 03:54) Appeara CLEAR CLEAR complet nce of 017 ed Urine 03:54 Bilirub NEGATIV NEG complet in 017 E ed [Presen 03:54 ce] in Urine by Test strip Erythro 2+ NEG Abnorma complet cytes 017 l ed [Presen 03:54 ce] in Urine Color YELLOW YELLOW complet of 017 ed Urine 03:54 Ketones NEGATIV NEG complet 017 E ed [Presen 03:54 ce] in Urine by Automat ed test strip Mucus 2+ NEG Abnorma complet [Presen 017 l ed ce] in 03:54 Urine sedimen t by Light microsc opy Nitrite NEGATIV NEG complet 017 E ed [Presen 03:54 ce] in Urine by Test strip Urobili 2.0 NEG complet nogen 017 ed [Presen 03:54 ce] in Urine by Test strip Bacteria Tiss Cult (10-20-2016 10:42) Bacteri [id number] complet a XXX 017 4 ed Anaerob 10:42 Pseudom e+Aerob onas e Cult aerugin jenae (organi sm) SCT PSAR PSEUDOM ONAS AERUGIN JENAE L Bacteri [id number] complet a XXX 017 2 ed Anaerob 10:42 Enteroc e+Aerob occus e Cult faecali s (organi sm) SCT EF ENTEROC OCCUS FAECALI S L CC XXX LGRO complet VC-aCnc 017 LIGHT ed 10:42 GROWTH L Urinalysis dipstick W Reflex Microscopic panel in [...] Bacteria XXX Anaerobe+Aerobe Cult (06-25-2016 05:32) Bacteri [id number] complet a XXX 017 06 No ed Anaerob 05:32 growth e+Aerob (qualif e Cult ier value) SCT NGB5 NO GROWTH DAY 4. L Bacteria XXX Anaerobe+Aerobe Cult (06-24-2016 09:32) Bacteri [id number] complet a XXX 017 06 No ed [...] ed agueda 16:27 IgG Ser Ql EIA Phosphate SerPl-mCnc (06-10-2016 04:59) Phospha 4.6 2.5-4.5 complet te 017 mg/dL ed SerPl-m 04:59 Cnc Magnesium SerPl-mCnc (06-10-2016 04:59) Magnesi 2.1 1.9-2.4 complet um 017 mg/dL ed SerPl-m 04:59 Cnc Vit B12 SerPl-mCnc (06-10-2016 04:59) Vit B12 594 210-103 complet 017 pg/mL 3 ed SerPl-m 04:59 Cnc Phosphate SerPl-mCnc (06-08-2016 [...] Path Rev Bld -Imp (06-05-2016 14:49) Path [id number] complet Rev Bld 017 04 ed -Imp 14:49 refer to patholo gy laborat ory SCT COPATH COPATH REPORT TO FOLLOW L Bacteria XXX Anaerobe+Aerobe Cult (06-05-2016 12:04) Bacteri [id number] complet a XXX 017 06 No ed [...] Cnc Bacteria Ur Cult (05-30-2016 17:25) Bacteri [id number] complet a XXX 017 8 Gram ed [...] c Bacteria Ur Cult (05-30-2016 03:59) Bacteri [id number] complet a XXX 017 4 ed Anaerob 03:59 Pseudom e+Aerob onas e Cult aerugin jenae (organi ) SCT PSAR PSEUDOM ONAS AERUGIN JENAE L CC XXX NOTAP complet VC-aCnc 017 NOT ed 03:59 APPLICA BLE L Bacteria XXX Anaerobe+Aerobe Cult (05-30-2016 03:56) Bacteri [id number] complet a XXX 017 06 No ed Anaerob 03:56 growth e+Aerob (qualif e Cult ier value) SCT NGB6 NO GROWTH DAY 5. L Phosphate SerPl-mCnc (05-27-2016 06:02) Phospha 3.7 2.5-4.5 complet te 017 mg/dL ed SerPl-m 06:02 Cnc Magnesium SerPl-mCnc (05-27-2016 06:02) Magnesi 2.0 1.9-2.4 complet um 017 mg/dL ed SerPl-m 06:02 Cnc Fungus Tiss Cult (04-20-2016 13:17) Bacteri NASF NO complet a XXX 017 ed Anaerob 13:17 ADDITIO e+Aerob NAL e Cult SIGNIFI CANT FUNGAL GROWTH AT 6 WEEKS L Bacteri [id number] complet a XXX 017 06 ed Anaerob 13:17 Roxana e+Aerob e Cult dublini ensis (organi ) SCT CDUB ROXANA DUBLINI ENSIS L Bacteri [id number] complet a XXX 017 06 ed Anaerob 13:17 Roxana e+Aerob e Cult glabrat a (organi ) SCT TGLA ROXANA GLABRAT A L
--- OUTSIDE RECORDS SUMMARY | 2017-02-14 07:04 | External Medical Summary Rpt | CCD ---
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 I50.9 HEART 10-04-2016 FAILURE, UNSPECIFIED L89.154 PRESSURE 10-04-2016 ULCER OF SACRAL REGION, STAGE 4 Z79.01 [facility] 10-04-2016 (CURRENT) USE OF ANTICOAGULA NTS Z79.4 [facility] 10-04-2016 (CURRENT) USE OF INSULIN 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 L Bacteria XXX Anaerobe+Aerobe Cult (06-24-2016 09:32) Bacteri [id number] complet a XXX 017 06 No ed [...] Path Rev Bld -Imp (06-05-2016 14:49) Path [id number] complet Rev Bld 017 04 ed -Imp 14:49 refer to patholo gy laborat ory SCT COPATH COPATH REPORT TO FOLLOW L Bacteria XXX Anaerobe+Aerobe Cult (06-05-2016 12:04) Bacteri [id number] complet a XXX 017 06 No ed [...] Cnc Bacteria Ur Cult (05-30-2016 17:25) Bacteri [id number] complet a XXX 017 8 Gram ed [...] c Bacteria Ur Cult (05-30-2016 03:59) Bacteri [id number] complet a XXX 017 4 ed Anaerob 03:59 Pseudom e+Aerob onas e Cult aerugin jenae (organi ) SCT PSAR PSEUDOM ONAS AERUGIN JENAE L CC XXX NOTAP complet VC-aCnc 017 NOT ed 03:59 APPLICA BLE L Bacteria XXX Anaerobe+Aerobe Cult (05-30-2016 03:56) Bacteri [id number] complet a XXX 017 06 No ed [...] FUNGAL GROWTH AT 6 WEEKS L Bacteri [id number] complet a XXX 017 06 ed Anaerob 13:17 Roxana e+Aerob e Cult dublini ensis (organi ) SCT CDUB ROXANA DUBLINI ENSIS L Bacteri [id number] complet a XXX 017 06 ed Anaerob 13:17 Roxana e+Aerob e Cult glabrat a (organi ) SCT TGLA ROXANA GLABRAT A L
--- OUTSIDE RECORDS SUMMARY | 2017-02-14 07:05 | External Medical Summary Rpt | CCD ---
Demographics Preferred Language Finnish Marital Status Unknown Yazidism Affiliation Unknown Race Unknown Ethnic Group Unknown Author Author , EDI GUTIERREZ Address Unknown Phone Immunization No patient found.
--- OUTSIDE RECORDS SUMMARY | 2017-02-14 07:05 | External Medical Summary Rpt | CCD ---
Demographics Preferred Language Algerian Marital Status Unknown Rastafari Affiliation Unknown Race Unknown Ethnic Group Unknown Author Author , EDI GUTIERREZ Address Unknown Phone Immunization No patient found.
--- OUTSIDE RECORDS SUMMARY | 2017-02-14 07:05 | External Medical Summary Rpt | CCD ---
Author Author Conduent Organization Conduent Address Unknown Phone Unavailable Purpose Continuity of Care Document - through 2016
--- OUTSIDE RECORDS SUMMARY | 2017-02-14 07:06 | External Medical Summary Rpt ---
Author Author MATT Brito, [employer] Address Unknown Phone Unavailable Results Glucose [Mass/volume] in Capillary blood by Glucometer Observa Value Referen Units Interpr Notes Date tion ce etation Range Glucose 70 - 110 mg/dl No No Sep 6 [Mass/vol informati informati 2017 ume] in on in on in 11:46 AM Capillary source source blood by data data Glucomete r CBC W Auto Differential panel in Blood Observa Value Referen Units Interpr Notes Date tion ce etation Range Basophils 0 - 0.2 K/MM3 Normal No Sep 6 informati 2017 7:22 [#/volume on in AM ] in source Blood by data Automated count Basophils 0.1 - 2.0 % Normal No Sep 6 /100 informati 2017 7:22 leukocyte on in AM s in source Blood by data Automated count Eosinophi 0.0 - 0.4 K/mm3 Normal No Sep 6 ls informati 2016 7:22 [#/volume on in AM ] in source Blood by data Automated count Eosinophi 0.1 - % Normal No Sep 6 ls/100 12.0 informati 2016 7:22 leukocyte on in AM s in source Blood by data Automated count Granulocy 1.3 - 8.0 K/mm3 Normal No Sep 6 dar informati 2016 7:22 [#/volume on in AM ] in source Blood by data Automated count Granulocy 37.0 - % Normal No Sep 6 dar/100 80.0 informati 2017 7:22 leukocyte on in AM s in source Blood by data Automated count Hematocri 42.0 - % Low No Sep 6 t [Volume 52.0 informati 2017 7:22 on in AM Fraction] source of Blood data Hemoglobi 14.1 - g/dL Low No Sep 6 n 18.0 informati 2016 7:22 [Mass/vol on in AM ume] in source Blood data Lymphocyt 0.7 - 4.5 K/mm3 Normal No Sep 6 es informati 2017 7:22 [#/volume on in AM ] in source Unspecifi data ed specimen by Automated count Lymphocyt 10 - 50 % Normal No Sep 6 es informati 2017 7:22 [#/volume on in AM ] in source Unspecifi data ed specimen by Automated count Erythrocy 27 - 31.2 pg Low No Sep 6 te mean informati 2017 7:22 corpuscul on in AM ar source hemoglobi data n [Entitic mass] Erythrocy 31.8 - g/dl Low No Sep 6 te mean 35.4 informati 2017 7:22 corpuscul on in AM ar source hemoglobi data n concentra tion [Mass/vol ume] by Automated count Erythrocy 82.2 - fl Normal No Sep 6 te mean 97.8 informati 2017 7:22 corpuscul on in AM ar volume source [Entitic data volume] by Automated count Monocytes 0.1 - 1.0 K/mm3 Normal No Sep 6 informati 2016 7:22 [#/volume on in AM ] in source Blood by data Automated count Monocytes 1.7 - 9.3 % Normal No Sep 6 /100 informati 2017 7:22 leukocyte on in AM s in source Blood by data Automated count Platelet 7.4 - fl Low No Sep 6 mean 10.4 informati 2017 7:22 volume on in AM [Entitic source volume] data in Blood by Automated count Platelets 142 - 424 K/mm3 Normal No Sep 6 informati 2017 7:22 [#/volume on in AM ] in source Blood data Erythrocy 4.6 - 6.2 M/mm3 Low No Sep 6 dar informati 2017 7:22 [#/volume on in AM ] in source Amniotic data fluid Erythrocy 11.5 - % Normal No Sep 6 te 17.5 informati 2017 7:22 distribut on in AM ion width source [Entitic data volume] by Automated count Leukocyte 4.8 - K/MM3 Normal No Sep 6 s 10.8 informati 2017 7:22 [#/volume on in AM ] in source Blood data Basic metabolic panel in Blood Observa Value Referen Units Interpr Notes Date tion ce etation Range Urea 7 - 18 mg/dL Normal No Sep 6 nitrogen informati 2017 7:22 [Mass/vol on in AM ume] in source Serum or data Plasma Calcium 8.5 - mg/dL Low No Sep 6 [Mass/vol 10.1 informati 2017 7:22 ume] in on in AM Serum or source Plasma data Chloride 98 - 107 mmoL/L High No Sep 6 [Moles/vo informati 2017 7:22 lume] in on in AM Serum or source Plasma data Carbon 21.0 - mmoL/L Normal No Sep 6 dioxide, 32.0 informati 2017 7:22 total on in AM [Moles/vo source lume] in data Serum or Plasma Creatinin 0.70 - mg/dL Low No Sep 6 e 1.30 informati 2017 7:22 [Mass/vol on in AM ume] in source Serum or data Plasma Creatinin 50 - 200 ML/MIN No No Sep 6 e renal informati informati 2017 7:22 clearance on in on in AM source source predicted data data by Cockcroft -Gault formula Estimated >60 ML/MIN No REFERENCE Sep 6 informati RANGE: 2017 7:22 glomerula on in >60 AM r source ML/MIN/1. filtratio data 73 SQUARE n rate METERSIf (GF this patient is -A merican, then multiply theresult by 1.210. Glucose 74 - 106 mg/dL Normal No Sep 6 [Mass/vol informati 2017 7:22 ume] in on in AM Serum or source Plasma data Potassium 3.5 - 5.1 mmoL/L Low No Sep 6 informati 2017 7:22 [Moles/vo on in AM lume] in source Serum or data Plasma Sodium 136 - 145 mmoL/L High No Sep 6 [Moles/vo informati 2017 7:22 lume] in on in AM Serum or source Plasma data Glucose [Mass/volume] in Capillary blood by Glucometer Observa Value Referen Units Interpr Notes Date tion ce etation Range Glucose 70 - 110 mg/dl Normal No Sep 6 [Mass/vol informati 2017 6:02 ume] in on in AM Capillary source blood by data Glucomete r Glucose [Mass/volume] in Capillary blood by Glucometer Observa Value Referen Units Interpr Notes Date tion ce etation Range Glucose 70 - 110 mg/dl Normal No Sep 6 [Mass/vol informati 2017 ume] in on in Capillary source blood by data Glucomete r Glucose [Mass/volume] in Capillary blood by Glucometer Observa Value Referen Units Interpr Notes Date tion ce etation Range Glucose 70 - 110 mg/dl Normal No Sep 5 [Mass/vol informati 2017 8:32 ume] in on in PM Capillary source blood by data Glucomete r Glucose [Mass/volume] in Capillary blood by Glucometer Observa Value Referen Units Interpr Notes Date tion ce etation Range Glucose 70 - 110 mg/dl Normal No Sep 5 [Mass/vol informati 2017 4:00 ume] in on in PM Capillary source blood by data Glucomete r Glucose [Mass/volume] in Capillary blood by Glucometer Observa Value Referen Units Interpr Notes Date tion ce etation Range Glucose 70 - 110 mg/dl Normal No Sep 5 [Mass/vol informati 2017 ume] in on in 11:08 AM Capillary source blood by data Glucomete r Basic metabolic panel in Blood Observa Value Referen Units Interpr Notes Date tion ce etation Range Urea 7 - 18 mg/dL High No Sep 5 nitrogen informati 2017 6:30 [Mass/vol on in AM ume] in source Serum or data Plasma Calcium 8.5 - mg/dL Low No Sep 5 [Mass/vol 10.1 informati 2017 6:30 ume] in on in AM Serum or source Plasma data Chloride 98 - 107 mmoL/L High No Sep 5 [Moles/vo informati 2017 6:30 lume] in on in AM Serum or source Plasma data Carbon 21.0 - mmoL/L Normal No Sep 5 dioxide, 32.0 informati 2017 6:30 total on in AM [Moles/vo source lume] in data Serum or Plasma Creatinin 0.70 - mg/dL Low No Sep 5 e 1.30 informati 2017 6:30 [Mass/vol on in AM ume] in source Serum or data Plasma Creatinin 50 - 200 ML/MIN No No Sep 5 e renal informati informati 2017 6:30 clearance on in on in AM source source predicted data data by Cockcroft -Gault formula Estimated >60 ML/MIN No REFERENCE Sep 5 informati RANGE: 2017 6:30 glomerula on in >60 AM r source ML/MIN/1. filtratio data 73 SQUARE n rate METERSIf (GF this patient is -A merican, then multiply theresult by 1.210. Glucose 74 - 106 mg/dL High No Sep 5 [Mass/vol informati 2017 6:30 ume] in on in AM Serum or source Plasma data Potassium 3.5 - 5.1 mmoL/L Low No Sep 5 informati 2017 6:30 [Moles/vo on in AM lume] in source Serum or data Plasma Sodium 136 - 145 mmoL/L High Sep 5 [Moles/vo alert 2016 6:30 lume] in CRITICAL AM Serum or RESULTS Plasma RESU LTS CALLED TO: TAWANDA 11/28/16 0724 Chalino Chau CBC W Auto Differential panel in Blood Observa Value Referen Units Interpr Notes Date tion ce etation Range Basophils 0 - 0.2 K/MM3 Normal No Sep 5 informati 2017 6:30 [#/volume on in AM ] in source Blood by data Automated count Basophils 0.1 - 2.0 % Normal No Sep 5 /100 informati 2017 6:30 leukocyte on in AM s in source Blood by data Automated count Eosinophi 0.0 - 0.4 K/mm3 Normal No Sep 5 ls informati 2017 6:30 [#/volume on in AM ] in source Blood by data Automated count Eosinophi 0.1 - % Normal No Sep 5 ls/100 12.0 informati 2017 6:30 leukocyte on in AM s in source Blood by data Automated count Granulocy 1.3 - 8.0 K/mm3 High No Sep 5 dar informati 2017 6:30 [#/volume on in AM ] in source Blood by data Automated count Granulocy 37.0 - % Normal No Sep 5 dar/100 80.0 informati 2016 6:30 leukocyte on in AM s in source Blood by data Automated count Hematocri 42.0 - % Low No Sep 5 t [Volume 52.0 informati 2017 6:30 on in AM Fraction] source of Blood data Hemoglobi 14.1 - g/dL Low No Sep 5 n 18.0 informati 2017 6:30 [Mass/vol on in AM ume] in source Blood data Lymphocyt 0.7 - 4.5 K/mm3 Normal No Sep 5 es informati 2017 6:30 [#/volume on in AM ] in source Unspecifi data ed specimen by Automated count Lymphocyt 10 - 50 % Normal No Sep 5 es informati 2016 6:30 [#/volume on in AM ] in source Unspecifi data ed specimen by Automated count Erythrocy 27 - 31.2 pg Low No Sep 5 te mean informati 2016 6:30 corpuscul on in AM ar source hemoglobi data n [Entitic mass] Erythrocy 31.8 - g/dl Low No Sep 5 te mean 35.4 informati 2017 6:30 corpuscul on in AM ar source hemoglobi data n concentra tion [Mass/vol ume] by Automated count Erythrocy 82.2 - fl Normal No Sep 5 te mean 97.8 informati 2016 6:30 corpuscul on in AM ar volume source [Entitic data volume] by Automated count Monocytes 0.1 - 1.0 K/mm3 Normal No Sep 5 informati 2016 6:30 [#/volume on in AM ] in source Blood by data Automated count Monocytes 1.7 - 9.3 % Normal No Sep 5 /100 informati 2017 6:30 leukocyte on in AM s in source Blood by data Automated count Platelet 7.4 - fl Low No Sep 5 mean 10.4 informati 2017 6:30 volume on in AM [Entitic source volume] data in Blood by Automated count Platelets 142 - 424 K/mm3 Normal No Sep 5 informati 2017 6:30 [#/volume on in AM ] in source Blood data Erythrocy 4.6 - 6.2 M/mm3 Low No Sep 5 dar informati 2017 6:30 [#/volume on in AM ] in source Amniotic data fluid Erythrocy 11.5 - % Normal No Sep 5 te 17.5 informati 2016 6:30 distribut on in AM ion width source [Entitic data volume] by Automated count Leukocyte 4.8 - K/MM3 High No Sep 5 s 10.8 informati 2016 6:30 [#/volume on in AM ] in source Blood data Glucose [Mass/volume] in Capillary blood by Glucometer Observa Value Referen Units Interpr Notes Date tion ce etation Range Glucose 70 - 110 mg/dl High No Sep 5 [Mass/vol informati 2017 6:25 ume] in on in AM Capillary source blood by data Glucomete r Glucose [Mass/volume] in Capillary blood by Glucometer Observa Value Referen Units Interpr Notes Date tion ce etation Range Glucose 70 - 110 mg/dl Normal No Sep 4 [Mass/vol informati 2017 8:55 ume] in on in PM Capillary source blood by data Glucomete r Glucose [Mass/volume] in Capillary blood by Glucometer Observa Value Referen Units Interpr Notes Date tion ce etation Range Glucose 70 - 110 mg/dl High No Sep 4 [Mass/vol informati 2016 4:09 ume] in on in PM Capillary source blood by data Glucomete r Glucose [Mass/volume] in Capillary blood by Glucometer Observa Value Referen Units Interpr Notes Date tion ce etation Range Glucose 70 - 110 mg/dl Normal No Sep 4 [Mass/vol informati 2016 ume] in on in 11:14 AM Capillary source blood by data Glucomete r Gas panel in Arterial blood Observa Value Referen Units Interpr Notes Date tion ce etation Range Base -2.4-+2.3 MMOL/L High No Sep 4 excess in informati 2017 4:07 Arterial on in AM blood source data Arteria Y No No No No Sep 4 l informa informa informa informa 2017 patency tion in tion in tion in tion in 4:07 AM Wrist source source source source artery data data data data --pre arteria l punctur e Bicarbona 22.0 - MMOL/L High No Sep 4 te 26.0 informati 2017 4:07 [Moles/vo on in AM lume] in source Arterial data blood Oxygen No No No No Sep 4 content informati informati informati informati 2017 4:07 in on in on in on in on in AM Arterial source source source source blood data data data data Carbon 35.0 - MMHG High No Sep 4 dioxide 45.0 informati 2016 4:07 [Partial on in AM pressure] source in data Arterial blood pH of 7.35 - MMOL/L Normal No Sep 4 Arterial 7.45 informati 2016 4:07 blood on in AM source data Oxygen 80 - 100 MMHG Low alert Sep 4 [Partial 2017 4:07 pressure] CRITICAL AM in RESULTS Arterial blood RESU LTS CALLED TO: DR RIDDLE 11/27/16 0408 Herman Bynum Oxygen 90 - 100 % Low alert No Sep 4 saturatio informati 2016 4:07 n.calcula on in AM indira from source oxygen data partial pressure in Arterial blood SOURCE R/R No No No No Sep 4 informa informa informa informa 2017 tion in tion in tion in tion in 4:07 AM source source source source data data data data Carbon 23 - 27 MMOL/L High No Sep 4 dioxide, informati 2017 4:07 total on in AM [Moles/vo source lume] in data Arterial blood Urinalysis dipstick W Reflex Microscopic panel in Urine Observa Value Referen Units Interpr Notes Date tion ce etation Range Appeara CLEAR CLEAR No No No Sep 4 nce of informa informa informa 2017 Urine tion in tion in tion in 3:54 AM source source source data data data Bacteri 3+ O No No No Sep 4 a informa informa informa 2016 [Presen tion in tion in tion in 3:54 AM ce] in source source source Urine data data data sedimen t by Light microsc opy Bilirub NEGATIV NEG No No No Sep 4 in E informa informa informa 2016 [Presen tion in tion in tion in 3:54 AM ce] in source source source Urine data data data by Test strip Erythro 2+ NEG No Abnorma No Sep 4 cytes informa l informa 2016 [Presen tion in tion in 3:54 AM ce] in source source Urine data data Color YELLOW YELLOW No No No Sep 4 of informa informa informa 2017 Urine tion in tion in tion in 3:54 AM source source source data data data Glucose NEG No No No Sep 4 [Mass/vol informati informati informati 2016 3:54 ume] in on in on in on in AM Urine by source source source Test data data data strip Ketones NEGATIV NEG mg/dL No No Sep 4 E informa informa 2016 [Presen tion in tion in 3:54 AM ce] in source source Urine data data by Automat ed test strip Mucus 2+ NEG No Abnorma No Sep 4 [Presen informa l informa 2016 ce] in tion in tion in 3:54 AM Urine source source sedimen data data t by Light microsc opy Mucus 1+ NONE No No No Sep 4 [Presen informa informa informa 2016 ce] in tion in tion in tion in 3:54 AM Urine source source source sedimen data data data t by Light microsc opy Nitrite NEGATIV NEG No No No Sep 4 E informa informa informa 2017 [Presen tion in tion in tion in 3:54 AM ce] in source source source Urine data data data by Test strip pH of 5.0 - 8.5 No Normal No Sep 4 Urine informati informati 2017 3:54 on in on in AM source source data data Protein NEG mg/dL High No Sep 4 [Mass/vol informati 2017 3:54 ume] in on in AM Urine by source Automated data test strip Erythro 10-20 0 rbc/hpf No No Sep 4 cytes informa informa 2017 [Presen tion in tion in 3:54 AM ce] in source source Urine data data sedimen t by Light microsc opy Specific 1.005 - No Normal No Sep 4 gravity 1.030 informati informati 2017 3:54 of Urine on in on in AM source source data data Epithel 3-5 OCC #/hpf No No Sep 4 ial informa informa 2017 cells.s tion in tion in 3:54 AM quamous source source data data [Presen ce] in Urine sedimen t by Microsc opy high power field Urobili 2.0 NEG E.U./dL No No Sep 4 nogen informa informa 2017 [Presen tion in tion in 3:54 AM ce] in source source Urine data data by Test strip Leukocy [20 O wbc/hpf No No Sep 4 dar wbc/hpf informa informa 2017 [#/volu ; 50 tion in tion in 3:54 AM me] in wbc/hpf source source Urine ] data data Urinalysis dipstick W Reflex Microscopic panel in Urine Observa Value Referen Units Interpr Notes Date tion ce etation Range Appeara CLEAR CLEAR No No No Sep 4 nce of informa informa informa 2017 Urine tion in tion in tion in 3:54 AM source source source data data data Bilirub NEGATIV NEG No No No Sep 4 in E informa informa informa 2017 [Presen tion in tion in tion in 3:54 AM ce] in source source source Urine data data data by Test strip Erythro 2+ NEG No Abnorma No Sep 4 cytes informa l informa 2017 [Presen tion in tion in 3:54 AM ce] in source source Urine data data Color YELLOW YELLOW No No No Sep 4 of informa informa informa 2017 Urine tion in tion in tion in 3:54 AM source source source data data data Glucose NEG No No No Sep 4 [Mass/vol informati informati informati 2017 3:54 ume] in on in on in on in AM Urine by source source source Test data data data strip Ketones NEGATIV NEG mg/dL No No Sep 4 E informa informa 2017 [Presen tion in tion in 3:54 AM ce] in source source Urine data data by Automat ed test strip Mucus 2+ NEG No Abnorma No Sep 4 [Presen informa l informa 2016 ce] in tion in tion in 3:54 AM Urine source source sedimen data data t by Light microsc opy Nitrite NEGATIV NEG No No No Sep 4 E informa informa informa 2016 [Presen tion in tion in tion in 3:54 AM ce] in source source source Urine data data data by Test strip pH of 5.0 - 8.5 No Normal No Sep 4 Urine informati informati 2017 3:54 on in on in AM source source data data Protein NEG mg/dL High No Sep 4 [Mass/vol informati 2017 3:54 ume] in on in AM Urine by source Automated data test strip Specific 1.005 - No Normal No Sep 4 gravity 1.030 informati informati 2017 3:54 of Urine on in on in AM source source data data Urobili 2.0 NEG E.U./dL No No Sep 4 nogen informa informa 2017 [Presen tion in tion in 3:54 AM ce] in source source Urine data data by Test strip Fibrin D-dimer FEU [Mass/volume] in Platelet poor plasma Observa Value Referen Units Interpr Notes Date tion ce etation Range Fibrin 0 - 400 ng/mL High Sep 4 D-dimer alert NOTIFICAT 2017 3:45 FEU ION AM [Mass/vol RESULT ume] in The Platelet D-Dimer poor values plasma are presented in units of mass(ng/m L) ofD-Dimer units(DDU ).This test has been FDA approved as an aid in the assessmen tand evaluatio n of suspected DIC, and thromboem bolic eventsinc luding PE and DVT. However, it does not have approvalf or cut-off values for the exclusion of these condition s. Comprehensive metabolic 2000 panel in Serum or Plasma Observa Value Referen Units Interpr Notes Date tion ce etation Range Albumin/G 1.1 - 1.8 No Low No Sep 4 lobulin informati informati 2017 3:45 [Mass on in on in AM ratio] in source source Serum or data data Plasma Albumin 3.4 - 5.0 gm/dL Low No Sep 4 [Mass/vol informati 2017 3:45 ume] in on in AM Serum or source Plasma data Alkaline 46 - 116 U/L Normal No Sep 4 phosphata informati 2017 3:45 se on in AM [Enzymati source c data activity/ volume] in Serum or Plasma Bilirubin 0.2 - 1.0 mg/dL Normal No Sep 4 .total informati 2017 3:45 [Mass/vol on in AM ume] in source Serum or data Plasma Urea 7 - 18 mg/dL High No Sep 4 nitrogen informati 2017 3:45 [Mass/vol on in AM ume] in source Serum or data Plasma Calcium 8.5 - mg/dL Low No Sep 4 [Mass/vol 10.1 informati 2017 3:45 ume] in on in AM Serum or source Plasma data Chloride 98 - 107 mmoL/L High No Sep 4 [Moles/vo informati 2017 3:45 lume] in on in AM Serum or source Plasma data Carbon 21.0 - mmoL/L Normal No Sep 4 dioxide, 32.0 informati 2017 3:45 total on in AM [Moles/vo source lume] in data Serum or Plasma Creatinin 0.70 - mg/dL Normal No Sep 4 e 1.30 informati 2017 3:45 [Mass/vol on in AM ume] in source Serum or data Plasma Creatinin 50 - 200 ML/MIN Normal No Sep 4 e renal informati 2017 3:45 clearance on in AM source predicted data by Cockcroft -Gault formula Estimated >60 ML/MIN No REFERENCE Sep 4 informati RANGE: 2017 3:45 glomerula on in >60 AM r source ML/MIN/1. filtratio data 73 SQUARE n rate METERSIf (GF this patient is -A merican, then multiply theresult by 1.210. Globulin 1.3 - 3.2 gm/dL High No Sep 4 [Mass/vol informati 2016 3:45 ume] in on in AM Serum source data Glucose 74 - 106 mg/dL High No Sep 4 [Mass/vol informati 2016 3:45 ume] in on in AM Serum or source Plasma data Potassium 3.5 - 5.1 mmoL/L Normal No Sep 4 inform2016 3:45 [Moles/vo on in AM lume] in source Serum or data Plasma Sodium 136 - 145 mmoL/L High Sep 4 [Moles/vo 2016 3:45 lume] in CRITICAL AM Serum or RESULTS Plasma RESU LTS CALLED TO: HUNTER 11/27/16 0415 [place] n[place] Aspartate 15 - 37 U/L Normal No Sep 4 inform2016 3:45 aminotran on in AM sferase source [Enzymati data c activity/ volume] in Serum or Plasma Alanine 12 - 78 U/L Low No Sep 4 aminotran inform2016 3:45 sferase on in AM [Enzymati source c data activity/ volume] in Serum or Plasma Protein 6.4 - 8.2 gm/dL High No Sep 4 [Mass/vol informati 2016 3:45 ume] in on in AM Serum or source Plasma data Lactate [Moles/volume] in Blood Observa Value Referen Units Interpr Notes Date tion ce etation Range Lactate 0.4 - 2.0 mmol/L Normal No Sep 4 [Moles/vo informati 2016 3:45 lume] in on in AM Blood source data CBC W Auto Differential panel in Blood Observa Value Referen Units Interpr Notes Date tion ce etation Range Basophils 0 - 0.2 K/MM3 Normal No Sep 4 2016 3:45 [#/volume on in AM ] in source Blood by data Automated count Basophils 0.1 - 2.0 % Normal No Sep 4 /100 inform2016 3:45 leukocyte on in AM s in source Blood by data Automated count Eosinophi 0.0 - 0.4 K/mm3 Normal No Sep 4 ls inform2016 3:45 [#/volume on in AM ] in source Blood by data Automated count Eosinophi 0.1 - % Normal No Sep 4 ls/100 12.0 informati 2016 3:45 leukocyte on in AM s in source Blood by data Automated count Granulocy 1.3 - 8.0 K/mm3 High No Sep 4 dar informati 2016 3:45 [#/volume on in AM ] in source Blood by data Automated count Granulocy 37.0 - % Normal No Sep 4 dar/100 80.0 informati 2016 3:45 leukocyte on in AM s in source Blood by data Automated count Hematocri 42.0 - % Low No Sep 4 t [Volume 52.0 informati 2016 3:45 on in AM Fraction] source of Blood data Hemoglobi 14.1 - g/dL Low No Sep 4 n 18.0 informati 2016 3:45 [Mass/vol on in AM ume] in source Blood data Lymphocyt 0.7 - 4.5 K/mm3 Normal No Sep 4 es informati 2016 3:45 [#/volume on in AM ] in source Unspecifi data ed specimen by Automated count Lymphocyt 10 - 50 % Normal No Sep 4 es informati 2016 3:45 [#/volume on in AM ] in source Unspecifi data ed specimen by Automated count Erythrocy 27 - 31.2 pg Low No Sep 4 te mean informati 2016 3:45 corpuscul on in AM ar source hemoglobi data n [Entitic mass] Erythrocy 31.8 - g/dl Low No Sep 4 te mean 35.4 informati 2016 3:45 corpuscul on in AM ar source hemoglobi data n concentra tion [Mass/vol ume] by Automated count Erythrocy 82.2 - fl Normal No Sep 4 te mean 97.8 informati 2016 3:45 corpuscul on in AM ar volume source [Entitic data volume] by Automated count Monocytes 0.1 - 1.0 K/mm3 High No Sep 4 informati 2016 3:45 [#/volume on in AM ] in source Blood by data Automated count Monocytes 1.7 - 9.3 % Normal No Sep 4 /100 informati 2016 3:45 leukocyte on in AM s in source Blood by data Automated count Platelet 7.4 - fl Low No Sep 4 mean 10.4 informati 2016 3:45 volume on in AM [Entitic source volume] data in Blood by Automated count Platelets 142 - 424 K/mm3 Normal No Sep 4 inform2016 3:45 [#/volume on in AM ] in source Blood data Erythrocy 4.6 - 6.2 M/mm3 Low No Sep 4 dar 2016 3:45 [#/volume on in AM ] in source Amniotic data fluid Erythrocy 11.5 - % Normal No Sep 4 te 17.5 inform2016 3:45 distribut on in AM ion width source [Entitic data volume] by Automated count Leukocyte 4.8 - K/MM3 High No Sep 4 s 10.8 inform2016 3:45 [#/volume on in AM ] in source Blood data CBC W Auto Differential panel in Blood Observa Value Referen Units Interpr Notes Date tion ce etation Range Basophils 0 - 0.2 K/MM3 Normal No [place] 5 2016 [#/volume on in 12:40 PM ] in source Blood by data Automated count Basophils 0.1 - 2.0 % Normal No Aug 5 /100 2016 leukocyte on in 12:40 PM s in source Blood by data Automated count Eosinophi 0.0 - 0.4 K/mm3 Normal No Aug 5 ls 2016 [#/volume on in 12:40 PM ] in source Blood by data Automated count Eosinophi 0.1 - % Normal No Aug 5 ls/100 12.0 2016 leukocyte on in 12:40 PM s in source Blood by data Automated count Granulocy 1.3 - 8.0 K/mm3 High No [place] 5 dar 2016 [#/volume on in 12:40 PM ] in source Blood by data Automated count Granulocy 37.0 - % Normal No Aug 5 dar/100 80.0 2016 leukocyte on in 12:40 PM s in source Blood by data Automated count Hematocri 42.0 - % Low No Aug 5 t [Volume 52.0 2016 on in 12:40 PM Fraction] source of Blood data Hemoglobi 14.1 - g/dL Low No Aug 28 n 18.0 2016 [Mass/vol on in 12:40 PM ume] in source Blood data Lymphocyt 0.7 - 4.5 K/mm3 Normal No Aug 28 es 2016 [#/volume on in 12:40 PM ] in source Unspecifi data ed specimen by Automated count Lymphocyt 10 - 50 % Normal No Aug 28 es 2016 [#/volume on in 12:40 PM ] in source Unspecifi data ed specimen by Automated count Erythrocy 27 - 31.2 pg Low No Tommie 5 te mean 2016 corpuscul on in 12:40 PM ar source hemoglobi data n [Entitic mass] Erythrocy 31.8 - g/dl Low No Tommie 5 te mean 35.4 2016 corpuscul on in 12:40 PM ar source hemoglobi data n concentra tion [Mass/vol ume] by Automated count Erythrocy 82.2 - fl Low No Tommie 5 te mean 97.8 2016 corpuscul on in 12:40 PM ar volume source [Entitic data volume] by Automated count Monocytes 0.1 - 1.0 K/mm3 High No Tommie 5 2016 [#/volume on in 12:40 PM ] in source Blood by data Automated count Monocytes 1.7 - 9.3 % High No Tommie 5 /100 2016 leukocyte on in 12:40 PM s in source Blood by data Automated count Platelet 7.4 - fl Low No Tommie 5 mean 10.4 2016 volume on in 12:40 PM [Entitic source volume] data in Blood by Automated count Platelets 142 - 424 K/mm3 Normal No Tommie 5 2016 [#/volume on in 12:40 PM ] in source Blood data Erythrocy 4.6 - 6.2 M/mm3 Normal No Tommie 5 dar 2016 [#/volume on in 12:40 PM ] in source Amniotic data fluid Erythrocy 11.5 - % Normal No Aug 5 te 17.5 2016 distribut on in 12:40 PM ion width source [Entitic data volume] by Automated count Leukocyte 4.8 - K/MM3 High No Tommie 5 s 10.8 2016 [#/volume on in 12:40 PM ] in source Blood data Urinalysis dipstick W Reflex Microscopic panel in Urine Observa Value Referen Units Interpr Notes Date tion ce etation Range Appeara TURBID CLEAR No No No Tommie 2 nce of informa informa informa 2016 Urine tion in tion in tion in 9:40 AM source source source data data data Bacteri 4+ O No No No Aug 2 a informa informa informa 2016 [Presen [...] mg/dL High No Tommie 2 [Mass/vol informati 2016 9:40 ume] in on in AM Urine by source Automated data test strip Specific 1.005 - No Normal No Aug 2 gravity 1.030 informati informati 2016 9:40 of Urine on in on in AM source source data data Urobili 2.0 NEG E.U./dL No No Aug 2 nogen informa informa 2016 [Presen tion [...] 50 - 100 mcg/mL Normal No August 182016 [Mass/vol on in 10:15 AM ume] in source Serum or data Plasma Basic metabolic panel in Blood Observa Value Referen Units Interpr Notes Date tion ce etation Range Urea 7 - 18 mg/dL Normal No August 18 nitrogen inform2016 [Mass/vol on in 10:15 AM ume] in [...] 3.5 - 5.1 mmoL/L Low No August 18 inform2016 [Moles/vo on in 10:15 AM lume] in source Serum or data Plasma Sodium 136 - 145 mmoL/L Normal No August 18 [Moles/vo informati 2016 lume] in on in 10:15 AM Serum or source Plasma data BNP NT pro Observa Value Referen Units Interpr Notes Date tion ce etation Range NT-proB 11 0 - 131 pg/ml No No Apr 30 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 NT-proB No No No No Apr 30 INSPECTOR [employer]IMENT[employer]SEMBLY can informa informa informa informa 2013 show tion in tion in tion in [...] source source NT-proB data data data data INS[employer]OR [employer]ENT[employer]SEMBLY not related to congest adin heart failure [...] Low No Feb 5 [Moles/ 145 informa 2014 volume] tion in 8:18 AM in source Serum data or Plasma Potassi 3.8 3.5 - mmol/L No No Feb 5 um 5.1 informa informa 2014 [Moles/ tion in tion in 8:18 AM volume] source source in data data Serum or Plasma Chlorid 98 98 - mmol/L No No Feb 5 e 107 informa informa 2013 [Moles/ tion in tion in 8:18 AM [...] mg/dl High No Feb 5 120 informa 2013 [Mass/v tion in 8:18 AM olume] source in data Serum or Plasma Urea 13 7 - 18 mg/dl No No Feb 5 nitroge informa informa 2014 n tion in tion in 8:18 AM [Mass/v source source olume] data data in Serum or Plasma Creatin 1.0 0.6 - mg/dl No No Feb 5 ine 1.3 informa informa 2013 [Mass/v tion in tion [...] mg/dl Low No Feb 5 10.1 informa 2013 [Mass/v tion in 8:18 AM olume] source in data Serum or Plasma Bilirub 0.4 0.2 - mg/dl No No Feb 5 in.tota 1.0 informa informa 2014 l tion in tion in 8:18 AM [...] meters If No No No No Feb 5 patient informa informa informa informa 2013 is tion in tion in tion in tion in 8:18 AM source source source source data data data data Elise n, multipl y GFR by 1.120. *GFR No No No No Feb 5 only informa informa informa informa 2014 applies tion in tion in tion in tion in 8:18 AM to source source source source adults data data data data over the age 18. URINALYSIS COMPLETE AUTOMATED Observa Value Referen Units Interpr Notes Date tion ce etation Range Color LT. NL: No No No Feb 4 of YELL Negativ informa informa informa 2014 Urine e tion in tion in tion in 11:16 source source source PM data data data Appeara CLEAR NL: No No No Feb 4 nce of Negativ informa informa informa 2013 Urine e tion in tion in tion in 11:16 source source source PM data data data Glucose 3+ NL: No Abnorma No Feb 4 Negativ informa l informa 2013 [Mass/v e tion in tion in 11:16 olume] source source PM in data data Urine by Test strip Bilirub NEG NL: No No No Feb 4 in Negativ informa informa informa 2013 [Presen e tion in tion in tion in 11:16 ce] in source source source PM Urine data data data by Test strip Ketones TRACE NL: No No No Feb 4 Negativ informa informa informa 2013 [Presen e tion in tion in tion in 11:16 ce] in source source source PM Serum data data data or Plasma Specifi 1.020 NL: No No No Feb 4 c 1.00 >= informa informa informa 2014 gravity 1.030 tion in tion in tion in 11:16 of source source source PM Urine data data data Hemoglo NEG NL: No No No Feb 4 bin Negativ informa informa informa 2013 [Presen e tion in tion in tion in 11:16 ce] in source source source PM Urine data data data by Test strip pH of 6.0 NL: No No No Feb 4 Urine informa informa informa 2014 by Test tion in tion in tion in 11:16 strip source source source PM data data data Protein TRACE NL: No No No Feb 4 Negativ informa informa informa 2013 [Presen e tion in tion in tion in 11:16 ce] in source source source PM Urine data data data by Test strip Urobili 0.2 NL: 0.2 No No No Feb 4 nogen - 1.0 informa informa informa 2013 [Mass/v tion in tion in tion in 11:16 olume] source source source PM in data data data Urine by Test strip Nitrite NEG NL: No No No Feb 4 Negativ informa informa informa 2013 [Presen e tion in tion in tion in 11:16 ce] in source source source PM Urine data data data by Test strip Leukocy NEG NL: No No No Feb 4 dar Negativ informa informa informa 2013 [#/volu [...] Epithel NEGATIV NL: _ No No Apr 29 ial E NEGATIV informa informa 2013 cells E tion in tion in 11:16 [#/area source source PM ] in data data Urine sedimen t by Microsc opy high power field Bacteri NEGATIV NL: _ No No Apr 29 a E NEGATIV informa informa 2013 [#/area E tion in tion in 11:16 ] in source source PM Urine data data sedimen t by Microsc opy high power field Mucus NEGATIV NL: _ No No Apr 29 [Presen E NEGATIV informa informa 2013 ce] in E tion in tion in 11:16 Urine source source PM sedimen data data t by Light microsc opy Yeast NEGATIV NL: _ No No Apr 29 [Presen E NEGATIV informa informa 2013 ce] [...] informa informa 2013 tion in tion in in 11:16 source source source PM data data data RPR Observa Value Referen Units Interpr Notes Date tion ce etation Range _RPR_ No No No No May 02 informa informa informa informa 2013 tion in tion in tion in on in 9:19 AM source source source source data data data data RPR No No No No May 02 informa informa informa informa 2013 tion in tion in tion in in 9:19 AM source source source source data data data data Reporte No No No No May 02 d: informa informa informa informa 2013 tion in tion in tion in in 9:19 AM 014 source source source source 07:25 data data data data Status= F ------- No No No No May 02 ------- informa informa informa informa 2013 ------- tion in tion in tion in in 9:19 AM ------- source source source source ------- data data data data ------- ------- ------- ------- ------- ------- --- TEST No No No No May 02 informa informa informa informa 2013 tion in tion in tion in on in 9:19 AM source source source source RESULT data data data data FLAG RANGE UNITS SC ------- No No No No May 02 ------- informa informa informa informa 2013 ------- tion in tion in tion in on in 9:19 AM ------- source source source source ------- data data data data ------- ------- ------- ------- ------- ------- --- RPR No No No No May 02 informa informa informa informa 2014 tion in [...] source source source data data data data [place], No No No No May 02 [place] informa informa informa informa 2014 71001-4 tion in tion in tion in tion in 9:19 AM 296 source source source source data data data data 614 No No No No May 02 889-106 informa informa informa informa 2014 1 tion in tion in tion in tion in 9:19 AM source source source source data data data data [place] No No No No May 02 R. informa informa informa informa 2014 Thrashe tion in tion in tion in tion in 9:19 AM MD javi source source source source data data data data No No No No May 02 4.0919. informa informa informa informa 2014 XMT.SEN tion in tion in tion in tion in 9:19 AM T REF source source source source data data data data No No No No May 02 4.0919. informa informa informa informa 2014 XMT.SEN tion in tion in tion in [...] Leukocy 11.7 4.5 - K/uL High No b 4 dar 11.5 informa 2013 [#/volu tion in [...] No Apr 29 cyte 100 informa informa 2013 mean tion in tion in 4:57 PM corpusc source source ular data data volume [Entiti c volume] by Automat ed count Erythro 29.4 26.0 - pg No No Apr 29 cyte 32.0 informa informa 2013 mean tion in tion in 4:57 PM corpusc source source ular data data hemoglo bin [Entiti c mass] by Automat ed count Erythro 35.7 32.0 - g/dL No No Apr 29 cyte 36.0 informa informa 2013 mean tion in tion in 4:57 PM corpusc source source ular data data hemoglo bin concent ration [Mass/v olume] by Automat ed count Erythro 13.3 11.5 - % No No Apr 29 cyte 14.5 informa informa 2013 distrib tion in tion in 4:57 PM ution source source width data data [Ratio] by Automat ed count Platele 375 150 - K/uL No No Apr 29 ts 450 informa informa 2013 [#/volu tion in tion in 4:57 PM me] in source source Blood data data by Automat ed count Lymphoc 25.5 18.0 - % No No Feb 4 ytes/10 42.0 informa informa 2014 0 tion in tion in 4:57 PM leukocy source source dar in data data Blood by Automat ed count Monocyt 9.4 2.0 - % No No b 4 es/100 11.0 informa informa 2014 leukocy tion in tion in 4:57 PM dar in source source Blood data data by Automat ed count Neutrop 62.1 50.0 - % No No Feb 4 hils.ba 70.0 informa informa 2014 nd [...] High No Feb 4 hils.ba 6.90 informa 2014 nd tion in 4:57 PM form/10 source 0 data leukocy dar in Blood by Manual count Eosinop 0.16 0.00 - K/uL No No Feb 4 hils/10 0.70 informa informa 2014 0 tion in tion in 4:57 PM leukocy source source dar in data data Blood by Automat ed count Basophi 0.19 0.00 - K/uL No No b 4 ls/100 0.20 informa informa 2014 leukocy [...] source data data data data RD BCK C.MULHO No No No No Feb 4 VRFY: IONA informa informa informa informa 2014 1649,02 tion in tion in tion in tion in 4:47 PM /07/07, source source source source EBARBOU data data data data R Urea 21 7 - 18 mg/dl High No Feb 4 nitroge informa 2014 n tion in 4:47 PM [Mass/v source olume] data in Serum or Plasma Creatin 1.2 0.6 - mg/dl No No Feb 4 ine 1.3 informa informa 2014 [Mass/v tion in tion in 4:47 PM olume] source source in data data Serum or Plasma AGE 57 No yrs No No Feb 4 informa informa informa 2014 tion in tion in tion in 4:47 PM source source source data data data GFR >60 No ml/min No No Feb 4 informa informa informa 2014 tion in tion in tion in 4:47 PM source source source data data data Calcium 8.4 8.5 - mg/dl Low No Feb 4 10.1 informa 2013 [Mass/v tion in 4:47 PM olume] source in data Serum or Plasma Bilirub 0.6 0.2 - mg/dl No No Feb 4 in.tota 1.0 informa informa 2013 l tion in tion in 4:47 PM [Mass/v source source olume] data data in Serum or Plasma Asparta 26 15 - 37 IU/L No No Feb 4 te informa informa 2014 aminotr tion in tion in 4:47 PM ansfera source source se data data [Enzyma tic activit y/volum e] in Serum or Plasma Alanine 49 12 - 78 IU/L No No Feb 4 informa informa 2014 aminotr tion in tion in 4:47 PM ansfera source source se data data [Enzyma tic activit y/volum e] in Serum or Plasma Alkalin 134 50 - IU/L No No Feb 4 e 136 informa informa 2014 phospha tion in tion in 4:47 PM [...] source data \\BLDo\\G No No No No Apr 29 LOMERUL informa informa informa informa 2014 AR tion in tion in tion in tion in 4:47 PM FILTRAT source source source source ION data data data data RATE INTERPR ETATION \\BLDx\\ Normal No No No No Apr 29 Range: informa informa informa informa 2014 >60 tion in tion in tion in tion in 4:47 PM Ml/min/ source source source source 1.73 sq data data data data meters If No No No No Apr 29 patient informa informa informa informa 2014 is tion in tion in tion in tion in 4:47 PM source source source source data data data data Elise n, multipl y GFR by 1.120. *GFR No No No No Apr 29 only informa informa informa informa 2014 applies tion in tion in tion in tion in 4:47 PM to source source source source adults data data data data over the age 18. US ECHO 2D DOPPLER WITH CFI Observa Value Referen Units Interpr Notes Date tion ce etation Range US ECHO No No No No Apr 29 2D informa informa informa informa 2013 DOPPLER tion in tion in tion in tion in 4:04 PM WITH source source source source CFI data data data data [facility]\\.br\\ [address]\\.br \\ [place] [address]\\. br\\\\.br \\ RADIOLO GY REPORT\\ .br\\ Name: VARUN Benavides\\.br\\ Patient #: [id number] Stay Type: I/P\\.br \\ Age: 57 Room: 232\\.br \\ : 957 Sex: M\\.br\\ Orderin g Phys: IZZY GLE MR#: [id number]\\. br\\ Family Phys: IZZY GLE Pt Phone: [phone] /[phone]\\. br\\ Admitti ng Phys: IZZY GLE\\.br \\ [...] Best Gross Estimat e MILDRED Not Accurat dinary Taylore d. Ejectio n Fractio n:\\.br\\ Evaluat ion [...] signed by:\\.br \\ DELFINO MAGANA M.D.\\.b r\\ MAnnemarie./ 08:22\\. br\\ Dictati on Date/Ti me: 05/02/13 08:41 Dictate d By: DELFINO MAGANA M.D. M.D.\\.b r\\ Transcr . Date/Ti me: 05/06/13 / 14:21 Transcr . Init.: amh\\.br \\ [facility] L\\.br\\ [address]\\.br \\ [place] [address]\\. br\\\\.br \\ RADIOLO GY REPORT\\ .br\\ Name: VARUN Benavides\\.br\\ Patient #: [id number] Stay Type: I/P\\.br \\ Age: 57 Room: 232\\.br \\ : 957 Sex: M\\.br\\ Orderin g Phys: IZZY SAMAYOA MR#: [id number]\\. br\\ Family Phys: IZZY SAMAYOA Pt Phone: [phone] /[phone]\\. br\\ Admitti ng Phys: IZZY SAMAYOA\\.br \\ [...] source source ALS data data data data [facility] L\\.br\\ [address]\\.br \\ [place] [address]\\. br\\\\.br \\ RADIOLO GY REPORT\\ .br\\ Name: VRAUN Benavides\\.br\\ Patient #: [id number] Stay Type: I/P\\.br \\ Age: 57 Room: 232\\.br \\ : 957 Sex: M\\.br\\ Orderin g Phys: IZZY DANITA MR#: [id number]\\. br\\ Family Phys: IZZY DANITA Pt Phone: [phone] /[phone]\\. br\\ Admitti ng Phys: IZZY GLE\\.br \\ [...] signed by:\\.br \\ DELFINO MAGANA M.D.\\.b r\\ MLorenzoD./ 08:22\\. br\\\\.br \\ Dictati on /Ti me: 05/01/13 06:37 Dictate d By: DELFINO [...] source source source data data data data [facility] L\\.br\\ [address]\\.br \\ [facility] [address]\\. br\\\\.br \\ RADIOLO GY REPORT\\ .br\\ Name: VARUN Benavides\\.br\\ Patient #: [id number] Stay Type: I/P\\.br \\ Age: 57 Room: 232\\.br \\ : 957 Sex: M\\.br\\ Orderin g Phys: IZZY SAMAYOA MR#: [id number]\\. br\\ Family Phys: IZZY SAMAYOA Pt Phone: [phone] /[phone]\\. br\\ Admitti ng Phys: IZZY SAMAYOA\\.br \\ [...] 10:49\\. br\\\\.br \\ Dictati on Date/Ti me: 04/29/13 17:16 Dictate d By: HALEIGH ZAMARRIPA MD RADIOLO GIST\\.b r\\ Transcr . Date/Ti me: 04/29/13 / 22:16 Transcr . Init.: amh\\.br \\\\.br\\ Copy for: IZZY Leija MD via link\\.b r\\ Copy for: 073 HEALTH INFORMA TION MANAGEM ENT\\.br \\ DISCHAR GED\\.br \\\\.br\\
--- OUTSIDE RECORDS SUMMARY | 2017-02-14 07:06 | External Medical Summary Rpt ---
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\\.br \\ [place] [address]\\. br\\\\.br \\ RADIOLO GY REPORT\\ .br\\ Name: VARUN Benavides\\.br\\ Patient #: [id number] Stay Type: I/P\\.br \\ Age: 57 Room: 232\\.br \\ : 957 Sex: M\\.br\\ Orderin g Phys: IZZY GLE MR#: [id number]\\. br\\ Family Phys: IZZY GLE Pt Phone: [phone] /[phone]\\. br\\ Admitti ng Phys: IZZY GLE\\.br \\ [...] / 14:21 Transcr . Init.: amh\\.br \\ [facility] L\\.br\\ [address]\\.br \\ [place] [address]\\. br\\\\.br \\ RADIOLO GY REPORT\\ .br\\ Name: VARUN Benavides\\.br\\ Patient #: [id number] Stay Type: I/P\\.br \\ Age: 57 Room: 232\\.br \\ : 957 Sex: M\\.br\\ Orderin g Phys: IZZY SAMAYOA MR#: [id number]\\. br\\ Family Phys: IZZY SAMAYOA Pt Phone: [phone] /[phone]\\. br\\ Admitti ng Phys: IZZY SAMAYOA\\.br \\ [...] source source ALS data data data data [facility] L\\.br\\ [address]\\.br \\ [place] [address]\\. br\\\\.br \\ RADIOLO GY REPORT\\ .br\\ Name: VARUN Benavides\\.br\\ Patient #: [id number] Stay Type: I/P\\.br \\ Age: 57 Room: 232\\.br \\ : 957 Sex: M\\.br\\ Orderin g Phys: IZZY DANITA MR#: [id number]\\. br\\ Family Phys: IZZY DANITA Pt Phone: [phone] /[phone]\\. br\\ Admitti ng Phys: IZZY GLE\\.br \\ [...] source source source data data data data [facility] L\\.br\\ [address]\\.br \\ [place] [address]\\. br\\\\.br \\ RADIOLO GY REPORT\\ .br\\ Name: VARUN Benavides\\.br\\ Patient #: [id number] Stay Type: I/P\\.br \\ Age: 57 Room: 232\\.br \\ : 957 Sex: M\\.br\\ Orderin g Phys: IZZY SAMAYOA MR#: [id number]\\. br\\ Family Phys: IZZY SAMAYOA Pt Phone: [phone] /[phone]\\. br\\ Admitti ng Phys: IZZY SAMAYOA\\.br \\ [...]
--- NOTE | 2017-02-14 07:08 | Emergency Room Report ---
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 N Clinical Suspician of Infection? N Mental Status: 1 - Regular (Normal Baseline) Sepsis Risk:Low Sepsis Risk Have you (or family members/close friends) recently traveled outside the [place]? N If Yes, where/when: Have you had exposure to infectious disease within the past month? N TB? Other? Specify: Source patient, RN notes reviewed, EMS, intermediate records, old records Exam Limitations clinical condition Comment pt with reported fell oob this am but pt denied any problems except sacral pain Cardiac Chest Pain Chest pain indicative of cardiac No Timing/Duration this morning Severity moderate ALLERGIES Coded Allergies: No Known Allergies (04/17/16) Home Medications Active Scripts Clindamycin in 0.9 % Sod Chlor (Clindamycin 900 MG/50 Ml-Ns) 900 MG IV Q8 7 Days Prov: 11/29/16 Reported Medications Atorvastatin Calcium (Atorvastatin) 20 MG PO DAILY QUETIAPINE FUMARATE (Quetiapine Fumarate) 100 MG PO QHS Valproic Acid (Valproic Acid Syrup 500MG/10ML) 20 ML PO BID SERTRALINE HYDROCHLORIDE (Zoloft 100MG) 200 MG PO DAILY MORPHINE SULF IMMED.RELEASE (Morphine Sulfate) 7.5 MG PO TID Sertraline Hcl (Zoloft 50MG) 50 MG PO DAILY ALBUTEROL-IPRATROPIUM (Iprat-Albut 0.5-3(2.5) MG/3 Ml) 3 ML IH Q12HP PRN SHORTNESS OF AIR Valproic Acid (As Sodium Salt) (Valproic Acid) 10 ML PO 1300 DONEPEZIL HCL (Aricept 23MG) 10 MG PO DAILY Polyethylene Glycol 3350 (Miralax) 17 GM PO DAILY Zinc Sulfate (Zinc Sulfate 220MG) 220 MG PO DAILY MEMANTINE HCL (Namenda 10MG) 10 MG PO BID Ascorbic Acid (Vitamin C) 500 MG PO BID Carbidopa/Levodopa (Carbidopa-Levodopa 25-100 Tab) 1 TAB PO TID TRAMADOL HCL (Tramadol) 50 MG PO TIDP PRN PAIN Acetaminophen (Acetaminophen Extra Strength) 500 MG PO Q4HP PRN PAIN Docusate Sodium 100 MG PO DAILYP PRN BM History Medical History General CAD? No Angina: No NM: No Hypertension? Yes Hyperlipidemia? Yes CHF? No DVT? No PE? No COPD? No Asthma? No Anemia? No GERD? No Gastric ulcers? No GI Bleed? No Hernia? No Thyroid Problems? No Hypothyroidism? No CVA? No Seizures? Yes Diabetes? Yes Insulin Dependent: No Insulin Pump: No Home FSBS? Yes Renal Insuffiency? No End Stage Renal Disease? No UTI? No Stones? No BPH? No GB Disease: No Nephritic Syndrome? No Asplenia? No Hepatitis? No Sickle Cell Disease? No Arthritis? No Migraines? No Cataracts? No Glaucoma? No MRSA? No HIV? No TB? No Anxiety? Yes Depression? No Cancer? No More? Yes Additional hx: dementia Immunization Hx DT/Tetanus Unknown Flu Refused Pneumonia Unknown Surgical Hx Previous Surgery?Y PEG PLACEMENT TRACH PLACEMENT Family History Family Hx Diabetes Yes CAD No Hypertension Yes Hyperlipidemia Yes Cancer No TB No Social History Smoking Hx Smoker: Former Smoker Tobacco: Yes Type Cigarettes Packs/day N/A Alcohol Alcohol: No Drugs none Review of Systems All Other Systems Reviewed and Negative Constitutional denies fever Eyes denies drainage ENT denies: ear discharge, epistaxis, throat pain. Respiratory denies cough, denies shortness of breath Cardiovascular denies chest pain, denies syncope Gastrointestinal denies abdominal pain, denies diarrhea, denies vomiting Genitourinary denies: dysuria, frequency, hesitancy, hematuria. Musculoskeletal denies back pain, denies joint pain, denies joint swelling, denies neck pain Skin denies rash Psychiatric/Neurological denies headache, denies seizure Physical Exam Vital Signs Vital Signs Date Time Temp Pulse Resp B/P Pulse O2 O2 Flow FiO2 Ox Delivery Rate 02/14 0642 98.2 92 18 131/88 99 - WBC >12,000 or <4,000 or 10% bands? 2 or more SIRS Criteria Met? B/P:131/88 MAP:102 Creatinine >2.0? UA output<0.5ml/kg/hr for 2 hrs? Platelet count >100,000? Lactate >2.0mmol/1? INR >1.2 or PTT > than 60 sec? Evidence of Organ Dysfunction? Provider documented clinical suspician of infection? N Sepsis Criteria Count: 1 Sepsis Risk: Low Sepsis Risk General Appearance no apparent distress Eye Exam - bilateral eye PERRL, bilateral eye EOMI Ear, Nose, Throat normal ENT inspection Neck non-tender Respiratory Status No: respiratory distress. Lung Sounds bilateral: lungs clear. 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 No Results/Orders Orders Procedure Date/time Status PELVIS AP ONLY 02/14 709 Active CHEST-AP VIEW ONLY 02/14 709 Active XRAY/CT/US XRAY/CT/US XRAY chest, pelvis XR interpretation by reviewed by me Xray Results no fracture seen Departure Departure Time of Disposition 744 Disposition DC Home or Self Care(routine) Clinical Impression Primary Impression: Pelvic contusion Qualifiers: Encounter type: initial encounter Qualified Code: S30.0XXA - Contusion of lower back and pelvis, initial encounter Condition STABLE Referrals Curt Newsome MD (PCP/Family) Patient Instructions How to Prevent Falls Additional Instructions resume prev orders Discharge Counseling Counseled pt/family regarding diagnosis, test results, follow up needs ED Critical Care Critical Care No at 0746
--- NOTE | 2017-02-14 07:51 | RADIOLOGY REPORT PS360 ---
CHEST-AP VIEW ONLY HISTORY: Pain after a fall fall ORDERING PHYSICIAN: Inderjit Newsome MD PATIENT AGE: 61 years COMPARISON: 11/27/2016 FINDINGS: The cardiomediastinal silhouette and pulmonary vascularity are within normal limits. The lungs are clear without infiltrates, suspicious nodules, or pleural effusions. No acute bony abnormalities. IMPRESSION: Negative chest, no acute finding
--- NOTE | 2017-02-14 07:52 | RADIOLOGY REPORT PS360 ---
PELVIS AP ONLY HISTORY: Pain following injury fall ORDERING PHYSICIAN: Inderjit Newsome MD PATIENT AGE: 61 years COMPARISON: None FINDINGS: No fracture or dislocation. Mild osteoarthritic changes of the hips and SI joints IMPRESSION: No acute finding
[2017-02-14 08:13] VITALS: BP 134/96
[2017-02-14 10:21] LABS: URINE BILIRUBIN - DIPSTICK NEGATIVE (NEG); URINE BLOOD 3+ (NEG)
== END 2017-02-14 08:20 | disposition home or self-care (01) ==
LOC: ER 06:40
PROVIDERS: Emergency Medicine
DX: S30.0XXA Contusion of lower back and pelvis, initial encounter (principal); I10 Essential (primary) hypertension; E78.5 Hyperlipidemia, unspecified; E11.9 Type 2 diabetes mellitus without complications; F41.9 Anxiety disorder, unspecified; Z87.891 Personal history of nicotine dependence; W06.XXXA Fall from bed, initial encounter; Y92.122 Bedroom in nursing home as the place of occurrence of the external cause

== ENCOUNTER 2017-02-25 15:49 | Emergency (ER) | payer MEDICARE ==
[~2017-02-25] VITALS: Ht 180.3 cm; Wt 99.8 kg
[2017-02-25] MEDS ORDERED: INVANZ 1 GM1 GM IM (16:21)
[2017-02-25] MEDS ORDERED: DURAGESIC 50MC50 MCG TD (16:22)
[2017-02-25] MEDS ORDERED: DONEPEZIL 10MG10 MG PO (16:22)
[2017-02-25] MEDS ORDERED: MIRALAX17 GM/PACK PO (16:22)
[2017-02-25] MEDS ORDERED: QUETIAPINE FUM100 MG PO (16:23)
[2017-02-25] MEDS ORDERED: ZINC SULFATE 2220 MG PO (16:23)
--- OUTSIDE RECORDS SUMMARY | 2017-02-25 16:23 | External Medical Summary Rpt | CCD ---
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 I50.9 HEART 10-04-2016 FAILURE, UNSPECIFIED L89.154 PRESSURE 10-04-2016 ULCER OF SACRAL REGION, STAGE 4 Z79.01 CARE HOME 10-04-2016 (CURRENT) USE OF ANTICOAGULA NTS Z79.4 CARE HOME 10-04-2016 (CURRENT) USE OF INSULIN 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 ANALGESIC Z79.899 [...] 06-26-2016 FOR ATTENTION TO TRACHEOSTOM Y Z79.84 CARE HOME 06-26-2016 (CURRENT) USE OF ORAL HYPOGLYCEMI C DRUGS Z86.711 PERSONAL 06-26-2016 HISTORY OF PULMONARY EMBOLISM Z86.73 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-26-2016 HISTORY OF TRANSIENT ISCHEMIC ATTACK (TIA), AND CEREBRAL INFARCTION WITHOUT RESIDUAL DEFICITS I71.9 AORTIC ANEURYSM OF UNSPECIFIED SITE, WITHOUT RUPTURE J20.9 ACUTE BRONCHITIS, UNSPECIFIED K37 UNSPECIFIED APPENDICITI S L89.90 PRESSURE ULCER OF UNSPECIFIED SITE, UNSPECIFIED STAGE R50.9 FEVER, UNSPECIFIED S30.0XXA CONTUSION OF LOWER BACK AND PELVIS, INITIAL ENCOUNTER Results Labs Lab Lab Date Result Refere Interp Status Commen Order Detail nces retati t Range on Antibiotic sensitivity studies (02-19-2017 06:20) Ampicil 11--2 >= 32 complet dao 017 ug/ml ed suscept 06:20 ibility test by minimum inhibit ory concent ration Amoxici 02-19-2 = 8 complet llin/cl 017 ug/ml ed avulana 06:20 te suscept ibility test by minimum inhibit ory concent ration Ceftazi 02-19-2 = 16 complet dime/po 017 ug/ml ed tassium 06:20 clavula raul suscept ibility test by minimum inhibit ory concent ration Ceftria 02-19-2 >= 64 complet xone 017 ug/ml ed suscept 06:20 ibility test by minimum inhibit ory concent ration Cefazol 02-19-2 >= 64 complet in 017 ug/ml ed suscept 06:20 ibility test by minimum inhibit ory concent ration Extende 02-19-2 = ug/ml complet d 017 ed spectru 06:20 m beta lactama se (ESBL) produci ng bacteri a suscept ibility test by minimum inhibit ory Ertapen 02-19-2 <= 0.5 complet em 017 ug/ml ed suscept 06:20 ibility test by minimum inhibit ory concent ration Cefepim 02-19-2 = 8 complet e 017 ug/ml ed suscept 06:20 ibility test by minimum inhibit ory concent ration Nitrofu 02-19-2 <= 16 complet rantoin 017 ug/ml ed 06:20 suscept ibility test by minimum inhibit ory concent ration Gentami 02-19-2 >= 16 complet juan 017 ug/ml ed suscept 06:20 ibility test by minimum inhibit ory concent ration Imipene 02-19-2 <= 0.25 complet m 017 ug/ml ed suscept 06:20 ibility test by minimum inhibit ory concent ration Levoflo -27-2 >= 8 complet xacin 017 ug/ml ed suscept 06:20 ibility test by minimum inhibit ory concent ration Ampicil >= 32 complet dao/sul 017 ug/ml ed bactam 06:20 suscept ibility test by minimum inhibit ory concent ration Trimeth <= 20 complet oprim/s 017 ug/ml ed ulfamet 06:20 hoxazol e suscept ibility test by minimum inhibit ory concent ration Tobramy = 8 complet juan 017 ug/ml ed suscept 06:20 ibility test by minimum inhibit ory concent ration Piperac <= 4 complet illin/t 017 ug/ml ed azobact 06:20 am suscept ibility test by minimum inhibit ory concent ration Urinalysis with microscopy (02-13-2017 14:30) Urine 4.0 4.0 NEG complet urobili 017 L ed nogen 14:30 E.U./dL detecti on by test str Urine 20 - 50 O complet leukocy 017 ed dar 14:30 wbc/hpf count (number /volume ) Urine CLOUDY CLEAR complet appeara 017 CLOUDY ed nce 14:30 L determi nation Bacteri 3+ 3+ L O complet a 017 ed detecti 14:30 on in urine sedimen t by Urine NEGATIV NEG complet total 017 E ed bilirub 14:30 NEGATIV in E L detecti on by test Urine 3+ 3+ L NEG complet blood 017 ed detecti 14:30 on Urine YELLOW YELLOW complet color 017 YELLOW ed 14:30 L Glucose = NEG complet ur 017 NEGATIV ed test 14:30 E strip Urine TRACE NEG complet ketones 017 TRACE L ed 14:30 mg/dL detecti on by automat ed dar Mucus 2+ 2+ L NEG complet detecti 017 ed on in 14:30 urine sedimen t by lig Urine POSITIV NEG complet nitrite 017 E ed 14:30 POSITIV detecti E L on by test strip Urine = 6.5 5.0-8.5 complet pH 017 ed 14:30 Urine 1 + NEG complet protein 017 mg/dL ed 14:30 measure ment by automat ed t Erythro 02-13- 5-10 0 complet cytes 017 5-10 L ed detecti 14:30 rbc/hpf on in urine sedimen t Urine = 1.025 1.005-1 complet specifi 017 .030 ed c 14:30 gravity measure ment [place] 5-10 OCC complet s 017 5-10 L ed epithel 14:30 #/hpf ial cells detecti on in u Urine culture (02-13-2017 14:30) Urine [id number] complet culture 017 07 ed 14:30 Escheri maulik coli SCT EC ESCHERI MAULIK COLI L Urinalysis dipstick W Reflex Microscopic panel in Urine (02-13-2017 14:30) Bacteri 3+ O complet a 017 ed [Presen 14:30 ce] in Urine sedimen t by Light microsc opy Erythro 02-13- 5-10 0 complet cytes 017 ed [Presen 14:30 ce] in Urine sedimen t by Light microsc opy Epithel 5-10 OCC complet ial 017 ed cells.s 14:30 quamous [Presen ce] in Urine sedimen t by Microsc opy high power field Leukocy 20-50 O complet dar 017 wbc/hpf ed [#/volu 14:30 me] in Urine Urinalysis dipstick W Reflex Microscopic panel in Urine (02-13-2017 14:30) Appeara CLOUDY CLEAR complet nce of 017 ed Urine 14:30 Bilirub NEGATIV NEG complet in 017 E ed [Presen 14:30 ce] in Urine by Test strip Erythro 3+ NEG Abnorma complet cytes 017 l ed [Presen 14:30 ce] in Urine Color YELLOW YELLOW complet of 017 ed Urine 14:30 Ketones TRACE NEG Abnorma complet 017 l ed [Presen 14:30 ce] in Urine by Automat ed test strip Mucus 2+ NEG Abnorma complet [Presen 017 l ed ce] in 14:30 Urine sedimen t by Light microsc opy Nitrite POSITIV NEG Abnorma complet 017 E l ed [Presen 14:30 ce] in Urine by Test strip Urobili 4.0 NEG complet nogen 017 ed [Presen 14:30 ce] in Urine by Test strip Gas panel in Arterial blood (11-27-2016 04:07) [...] strip Bacteria Tiss Cult (10-20-2016 10:42) Bacteri [id number] complet a XXX 017 4 ed Anaerob 10:42 Pseudom e+Aerob onas e Cult aerugin jenae (organi sm) SCT PSAR PSEUDOM ONAS AERUGIN JENAE L Bacteri [id number] complet a XXX 017 2 ed Anaerob [...] Bacteria XXX Anaerobe+Aerobe Cult (06-25-2016 05:32) Bacteri [id number] complet a XXX 017 06 No ed Anaerob 05:32 growth e+Aerob (qualif e Cult ier value) SCT NGB5 NO GROWTH DAY 4. L Bacteria XXX Anaerobe+Aerobe Cult (06-24-2016 09:32) Bacteri [id number] complet a XXX 017 06 No ed [...] Path Rev Bld -Imp (06-05-2016 14:49) Path [id number] complet Rev Bld 017 04 ed -Imp 14:49 refer to patholo gy laborat ory SCT COPATH COPATH REPORT TO FOLLOW L Bacteria XXX Anaerobe+Aerobe Cult (06-05-2016 12:04) Bacteri [id number] complet a XXX 017 06 No ed [...] Cnc Bacteria Ur Cult (05-30-2016 17:25) Bacteri [id number] complet a XXX 017 8 Gram ed [...] c Bacteria Ur Cult (05-30-2016 03:59) Bacteri [id number] complet a XXX 017 4 ed Anaerob 03:59 Pseudom e+Aerob onas e Cult aerugin jenae (organi ) SCT PSAR PSEUDOM ONAS AERUGIN JENAE L CC XXX NOTAP complet VC-aCnc 017 NOT ed 03:59 APPLICA BLE L Bacteria XXX Anaerobe+Aerobe Cult (05-30-2016 03:56) Bacteri [id number] complet a XXX 017 06 No ed Anaerob 03:56 growth e+Aerob (qualif e Cult ier value) SCT NGB6 NO GROWTH DAY 5. L Magnesium SerPl-mCnc (05-27-2016 06:02) Magnesi 2.0 1.9-2.4 complet um 017 mg/dL ed SerPl-m 06:02 Cnc Phosphate SerPl-mCnc (05-27-2016 06:02) Phospha 3.7 2.5-4.5 complet te 017 mg/dL ed SerPl-m 06:02 Cnc Fungus Tiss Cult (04-20-2016 13:17) Bacteri NASF NO complet a XXX 017 ed Anaerob 13:17 ADDITIO e+Aerob NAL e Cult SIGNIFI CANT FUNGAL GROWTH AT 6 WEEKS L Bacteri [id number] complet a XXX 017 06 ed Anaerob 13:17 Roxana e+Aerob e Cult dublini ensis (organi ) SCT CDUB ROXANA DUBLINI ENSIS L Bacteri [id number] complet a XXX 017 06 ed Anaerob 13:17 Roxana e+Aerob e Cult glabrat a (organi ) SCT TGLA ROXANA GLABRAT A L
--- OUTSIDE RECORDS SUMMARY | 2017-02-25 16:23 | External Medical Summary Rpt | CCD ---
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 I50.9 HEART 10-04-2016 FAILURE, UNSPECIFIED L89.154 PRESSURE 10-04-2016 ULCER OF SACRAL REGION, STAGE 4 Z79.01 HALF-WAY 10-04-2016 (CURRENT) USE OF ANTICOAGULA NTS Z79.4 HALF-WAY 10-04-2016 (CURRENT) USE OF INSULIN Z79.891 CAMPUS REP 10-04-2016 (CURRENT) USE OF OPIATE ANALGESIC Z79.899 [...] 06-26-2016 FOR ATTENTION TO TRACHEOSTOM Y Z79.84 HALF-WAY 06-26-2016 (CURRENT) USE OF ORAL HYPOGLYCEMI C [...] in u Urine culture (02-13-2017 14:30) Urine [id number] complet culture 017 07 ed 14:30 Escheri [...] strip Bacteria Tiss Cult (10-20-2016 10:42) Bacteri [id number] complet a XXX 017 4 ed Anaerob 10:42 Pseudom e+Aerob onas e Cult aerugin jenae (organi sm) SCT PSAR PSEUDOM ONAS AERUGIN JENAE L Bacteri [id number] complet a XXX 017 2 ed Anaerob [...] Bacteria XXX Anaerobe+Aerobe Cult (06-25-2016 05:32) Bacteri [id number] complet a XXX 017 06 No ed Anaerob 05:32 growth e+Aerob (qualif e Cult ier value) SCT NGB5 NO GROWTH DAY 4. L Bacteria XXX Anaerobe+Aerobe Cult (06-24-2016 09:32) Bacteri [id number] complet a XXX 017 06 No ed [...] Path Rev Bld -Imp (06-05-2016 14:49) Path [id number] complet Rev Bld 017 04 ed -Imp 14:49 refer to patholo gy laborat ory SCT COPATH COPATH REPORT TO FOLLOW L Bacteria XXX Anaerobe+Aerobe Cult (06-05-2016 12:04) Bacteri [id number] complet a XXX 017 06 No ed [...] Cnc Bacteria Ur Cult (05-30-2016 17:25) Bacteri [id number] complet a XXX 017 8 Gram ed [...] c Bacteria Ur Cult (05-30-2016 03:59) Bacteri [id number] complet a XXX 017 4 ed Anaerob 03:59 Pseudom e+Aerob onas e Cult aerugin jenae (organi ) SCT PSAR PSEUDOM ONAS AERUGIN JENAE L CC XXX NOTAP complet VC-aCnc 017 NOT ed 03:59 APPLICA BLE L Bacteria XXX Anaerobe+Aerobe Cult (05-30-2016 03:56) Bacteri [id number] complet a XXX 017 06 No ed [...] FUNGAL GROWTH AT 6 WEEKS L Bacteri [id number] complet a XXX 017 06 ed Anaerob 13:17 Roxana e+Aerob e Cult dublini ensis (organi ) SCT CDUB ROXANA DUBLINI ENSIS L Bacteri [id number] complet a XXX 017 06 ed Anaerob 13:17 Roxana e+Aerob e Cult glabrat a (organi ) SCT TGLA ROXANA GLABRAT A L
[2017-02-25] MEDS ORDERED: ZOLOFT100 MG PO (16:24)
[2017-02-25] MEDS ORDERED: KEPPRA 500 MG500 MG PO (16:24)
[2017-02-25] MEDS ORDERED: ZOCOR40 MG PO (16:24)
--- OUTSIDE RECORDS SUMMARY | 2017-02-25 16:24 | External Medical Summary Rpt | CCD ---
Author Author , MATT LEBLANCLINDY Address Unknown Phone [email or web address] Care Team Providers Care Timekeeping Supervisor Name Role Phone [facility] Unavailable Unavailable HOLDINGS, [facility], Unavailable Unavailable [facility] Unavailable Unavailable ASSOCIAT, [facility] Unavailable Unavailable [facility]OCI[facility] PS, [facility], Unavailable Unavailable [facility] Unavailable Unavailable COUNSELING, [facility] Unavailable Unavailable [facility], [facility], Unavailable Unavailable [facility], IZZY Unavailable Unavailable GLE Purpose Continuity of Care Document - 04-22-2013 through 2016 Problems Code Diagnosis DOS Provider Status 31727 DIAB W/O 10-30-2013 PR[facility] COMP TYPE HEALTH II/UNS NOT ASSOCIATES STATED PS UNCNTRL 3310 ALZHEIMERS 10-30-2013 [facility] DISEASE [facility] PS 4011 ESSENTIAL 10-30-2013 [facility] HYPERTENSI[place] [address] INSOMNIA 09-29-2013 [facility] UNSPECIFIED HEALTH ASSOCIATES PS 2724 OTHER AND 09-16-2013 [facility] HYPERLIPIDE [place] 31931 OTHER 09-16-2013 [facility] FATIGUE 4660 ACUTE 09-15-2013 [facility] [address] OTHER 09-03-2013 [facility] FRONTOTEMPO OUTPATIENT RAL COUNSELING DEMENTIA 4019 UNSPECIFIED 08-14-2013 [facility] ESSENTIAL N EMERGENCY HYPERTENSIO PHYSI N 92922 OTHER 08-14-2013 [facility] ABNORMAL N EMERGENCY GLUCOSE PHYSI 27807 DIAB 07-17-2013 PRIMARY W/UNSPEC HEALTH COMP TYPE ASSOCIATES II/UNSPEC PS TYPE UNCNTRL V720 EXAMINATION 07-17-2013 [facility] 41494 DIAB W/OTH 04-30-2013 [facility] G[facility] MANIFESTS TYPE I [JUV TYPE] UNCNTRL 88768 OTHER 04-30-2013 [facility] G[facility] LOCALIZED VISUAL FIELD DEFECT 4241 AORTIC 04-30-2013 [facility] VALVE DISORDERS 2768 HYPOPOTASSE 04-29-2013 [facility] WILL 4293 CARDIOMEGAL 04-29-2013 [place] 7850 UNSPECIFIED 04-29-2013 IZZY GLE TACHYCARDIA 3559 MONONEURITI 04-22-2013 [facility] UNSPECIFIED SITE 6822 CELLULITIS 04-22-2013 [facility] 6829 CELLULITIS 04-22-2013 IZZY GLE AND ABSCESS OF UNSPECIFIED SITE 7906 OTHER 04-22-2013 [facility] ABNORMAL CO[facility] BLOOD HOLDINGS CHEMISTRY 51335 UNS ADVRS 04-22-2013 [facility] EFF UNS RX COY MEDICINAL&B HOLDINGS IOLOGICAL [facility] V7791 SCREENING 04-22-2013 [facility] FOR LIPOID COY DISORDERS HOLDINGS Encounters Encounter Start End Date Code Location Performer Type Date [facility]
--- OUTSIDE RECORDS SUMMARY | 2017-02-25 16:24 | External Medical Summary Rpt | CCD ---
Author Author , MATT LEBLANCLINDY Address Unknown Phone [email or web address] Care Team Providers Care Polymerization Kettle Operator Name Role Phone [facility] Unavailable Unavailable HOLDINGS, [facility], Unavailable Unavailable [facility] Unavailable Unavailable ASSOCIAT, [facility] Unavailable Unavailable [facility]OCIATES PS, [facility], Unavailable Unavailable [facility] Unavailable Unavailable COUNSELING, [facility] Unavailable Unavailable EMERGENCY PHYSI, [facility], Unavailable Unavailable [facility] IZZY GLE, IZZY Unavailable Unavailable GLE Purpose Continuity of Care Document - 04-22-2013 through 2016 Problems Code Diagnosis DOS Provider Status 26874 DIAB W/O 10-30-2013 PRIMARY COMP TYPE HEALTH II/UNS NOT ASSOCIATES STATED PS UNCNTRL 3310 ALZHEIMERS 10-30-2013 [facility] DIS[facility] PS 4011 ESSENTIAL 10-30-2013 [facility] HYPERTENSIO HEALTH [place], [place] [address] INSOMNIA 09-29-2013 [facility] UNSPECIFIED HEALTH ASSOCIATES PS 2724 OTHER AND 09-16-2013 [facility] HYPERLIPIDE [place] 03415 OTHER 09-16-2013 [facility] FATIGUE 4660 ACUTE 09-15-2013 [facility] [place] [address] OTHER 09-03-2013 [facility] FRONTOTEMPO OUTPATIENT RAL COUNSELING DEMENTIA 4019 UNSPECIFIED 08-14-2013 [facility] ESSENTIAL N EMERGENCY HYPERTENSIO PHYSI N 43507 OTHER 08-14-2013 [facility] ABNORMAL N EMERGENCY GLUCOSE PHYSI 34512 DIAB 07-17-2013 PRIMARY W/UNSPEC HEALTH COMP TYPE ASSOCIATES II/UNSPEC PS TYPE UNCNTRL V720 EXAMINATION 07-17-2013 [facility] 57557 DIAB W/OTH 04-30-2013 IZZY GLE MANIFESTS TYPE I [JUV TYPE] UNCNTRL 42386 OTHER 04-30-2013 IZZY GLE LOCALIZED VISUAL FIELD DEFECT 4241 AORTIC 04-30-2013 IZZY GLE VALVE DISORDERS 2768 HYPOPOTASSE 04-29-2013 IZZY GLE WILL 4293 CARDIOMEGAL 04-29-2013 [place] [facility] 7850 UNSPECIFIED 04-29-2013 IZZY GLE TACHYCARDIA 3559 MONONEURITI 04-22-2013 [facility] UNSPECIFIED SITE 6822 CELLULITIS 04-22-2013 [facility] 6829 CELLULITIS 04-22-2013 IZZY GLE AND ABSCESS OF UNSPECIFIED SITE 7906 OTHER 04-22-2013 [facility] ABNORMAL COY BLOOD HOLDINGS CHEMISTRY 10928 UNS ADVRS 04-22-2013 [facility] EFF UNS RX COY MEDICINAL&B [facility] V7791 SCREENING 04-22-2013 [facility] FOR LIPOID COY DISORDERS HOLDINGS Encounters Encounter Start End Date Code Location Performer Type Date [facility]
[2017-02-25] MEDS ORDERED: PROMOD 946 ML946 ML PO (16:25)
[2017-02-25] MEDS ORDERED: MEMANTINE HCL10 MG PO (16:25)
--- OUTSIDE RECORDS SUMMARY | 2017-02-25 16:25 | External Medical Summary Rpt | CCD ---
Demographics Preferred Language Filipino Marital Status Unknown Mormonism Affiliation Unknown Race Unknown Ethnic Group Unknown Author Author , EDI GUTIERREZ Address Unknown Phone Immunization No patient found.
--- OUTSIDE RECORDS SUMMARY | 2017-02-25 16:25 | External Medical Summary Rpt | CCD ---
Demographics Preferred Language Djiboutian Marital Status Unknown Mormon Affiliation Unknown Race Unknown Ethnic Group Unknown Author Author , EDI GUTIERREZ Address Unknown Phone Immunization No patient found.
[2017-02-25] MEDS ORDERED: SINEMET 25/1001 TAB PO (16:26)
[2017-02-25] MEDS ORDERED: VITAMIN C500 M1 PO (16:26)
--- OUTSIDE RECORDS SUMMARY | 2017-02-25 16:26 | External Medical Summary Rpt ---
Author Author [facility] [employer] [employer] Organization [facility] [employer] Address Unknown Phone Unavailable Results Urinalysis dipstick W Reflex Microscopic panel in Urine Observa Value Referen Units Interpr Notes Date tion ce etation Range Appeara CLOUDY CLEAR No No No Feb 13 nce of informa informa informa 2017 Urine tion in tion in tion in 2:30 PM source source source data data data Bacteri 3+ O No No No Feb 13 a informa informa informa 2016 [Presen tion in tion in tion in 2:30 PM ce] in source source source Urine data data data sedimen t by Light microsc opy Bilirub NEGATIV NEG No No No Feb 13 in E informa informa informa 2016 [Presen tion in tion in tion in 2:30 PM ce] in source source source Urine data data data by Test strip Erythro 3+ NEG No Abnorma No Feb 13 cytes informa l informa 2016 [Presen tion in tion in 2:30 PM ce] in source source Urine data data Color YELLOW YELLOW No No No Feb 13 of informa informa informa 2017 Urine tion in tion in tion in 2:30 PM source source source data data data Glucose NEG No No No Feb 13 [Mass/vol informati informati informati 2016 2:30 ume] in on in on in on in PM Urine by source source source Test data data data strip Ketones TRACE NEG mg/dL Abnorma No Feb 13 l informa 2016 [Presen tion in 2:30 PM ce] in source Urine data by Automat ed test strip Mucus 2+ NEG No Abnorma No Feb 13 [Presen informa l informa 2016 ce] in tion in tion in 2:30 PM Urine source source sedimen data data t by Light microsc opy Mucus 2+ NONE No No No Feb 13 [Presen informa informa informa 2016 ce] in tion in tion in tion in 2:30 PM Urine source source source sedimen data data data t by Light microsc opy Nitrite POSITIV NEG No Abnorma No Feb 13 E informa l informa 2016 [Presen tion in tion in 2:30 PM ce] in source source Urine data data by Test strip pH of 5.0 - 8.5 No Normal No Feb 13 Urine informati informati 2017 2:30 on in on in PM source source data data Protein NEG mg/dL High No Feb 13 [Mass/vol informati 2017 2:30 ume] in on in PM Urine by source Automated data test strip Erythro 5-10 0 rbc/hpf No No Feb 13 cytes informa informa 2016 [Presen tion in tion in 2:30 PM ce] in source source Urine data data sedimen t by Light microsc opy Specific 1.005 - No Normal No Feb 13 gravity 1.030 informati informati 2017 2:30 of Urine on in on in PM source source data data Epithel 5-10 OCC #/hpf No No Feb 13 ial informa informa 2016 cells.s tion in tion in 2:30 PM quamous source source data data [Presen ce] in Urine sedimen t by Microsc opy high power field Urobili 4.0 NEG E.U./dL No No Feb 13 nogen informa informa 2016 [Presen tion in tion in 2:30 PM ce] in source source Urine data data by Test strip Leukocy [20 O wbc/hpf No No Feb 13 dar wbc/hpf informa informa 2016 [#/volu ; 50 tion in tion in 2:30 PM me] in wbc/hpf source source Urine ] data data Urinalysis dipstick W Reflex Microscopic panel in Urine Observa Value Referen Units Interpr Notes Date tion ce etation Range Appeara CLOUDY CLEAR No No No Feb 13 nce of informa informa informa 2017 Urine tion in tion in tion in 2:30 PM source source source data data data Bilirub NEGATIV NEG No No No Feb 13 in E informa informa informa 2016 [Presen tion in tion in tion in 2:30 PM ce] in source source source Urine data data data by Test strip Erythro 3+ NEG No Abnorma No Feb 13 cytes informa l informa 2016 [Presen tion in tion in 2:30 PM ce] in source source Urine data data Color YELLOW YELLOW No No No Feb 13 of informa informa informa 2016 Urine tion in tion in tion in 2:30 PM source source source data data data Glucose NEG No No No Feb 13 [Mass/vol informati informati informati 2016 2:30 ume] in on in on in on in PM Urine by source source source Test data data data strip Ketones TRACE NEG mg/dL Abnorma No Feb 13 l inform2016 [Presen tion in 2:30 PM ce] in source Urine data by Automat ed test strip Mucus 2+ NEG No Abnorma No Feb 13 [Presen informa l informa 2016 ce] in tion in tion in 2:30 PM Urine source source sedimen data data t by Light microsc opy Nitrite POSITIV NEG No Abnorma No Feb 13 E informa l inform2016 [Presen tion in tion in 2:30 PM ce] in source source Urine data data by Test strip pH of 5.0 - 8.5 No Normal No Feb 13 Urine informati informati 2016 2:30 on in on in PM source source data data Protein NEG mg/dL High No Feb 13 [Mass/vol informati 2016 2:30 ume] in on in PM Urine by source Automated data test strip Specific 1.005 - No Normal No Feb 13 gravity 1.030 informati informati 2016 2:30 of Urine on in on in PM source source data data Urobili 4.0 NEG E.U./dL No No Feb 13 nogen informa informa 2016 [Presen tion in tion in 2:30 PM ce] in source source Urine data data by Test strip Glucose [Mass/volume] in Capillary blood by Glucometer Observa Value Referen Units Interpr Notes Date tion ce etation Range Glucose 70 - 110 mg/dl No No Nov 6 [Mass/vol informati informati 2016 ume] in on in on in 11:46 AM Capillary source source blood by data data Glucomete r CBC W Auto Differential panel in Blood Observa Value Referen Units Interpr Notes Date ti ce etation Range Basophils 0 - 0.2 K/MM3 Normal No Sep 6 informati 2016 7:22 [#/volume on in AM ] in source Blood by data Automated count Basophils 0.1 - 2.0 % Normal No Sep 6 /100 informati 2016 7:22 leukocyte on in AM [...] Normal No Sep 6 dar/100 80.0 informati 2016 7:22 leukocyte on in AM s in source Blood by data Automated count Hematocri 42.0 - % Low No Sep 6 t [Volume 52.0 informati 2016 7:22 on in AM Fraction] source of [...] % Normal No Sep 6 es informati 2016 7:22 [#/volume on in AM ] in source Unspecifi data ed specimen by Automated count Erythrocy 27 - 31.2 pg Low No Sep 6 te mean informati 2016 7:22 corpuscul on in AM ar source hemoglobi data n [Entitic mass] Erythrocy 31.8 - g/dl Low No Sep 6 te mean 35.4 informati 2016 7:22 corpuscul on in AM ar source hemoglobi data n concentra tion [Mass/vol ume] by Automated count Erythrocy 82.2 - fl Normal No Sep 6 te mean 97.8 informati 2016 7:22 corpuscul on in AM ar volume [...] Normal No Sep 6 s 10.8 informati 2016 7:22 [#/volume on in AM [...] mg/dl Normal No Sep 5 [Mass/vol informati 2016 4:00 ume] in on in PM Capillary [...] - 2.0 % Normal No Sep 5 informati 2016 6:30 leukocyte on in AM [...] Normal No Sep 5 dar/100 80.0 informati 2017 6:30 leukocyte on in AM [...] % Normal No Sep 5 es informati 2017 6:30 [#/volume on in AM ] in source Unspecifi data ed specimen by Automated count Erythrocy 27 - 31.2 pg Low No Sep 5 te mean informati 2017 6:30 corpuscul on in AM ar source hemoglobi data n [Entitic mass] Erythrocy 31.8 - g/dl Low No Sep 5 te mean 35.4 informati 2017 6:30 corpuscul on in AM ar source hemoglobi data n concentra tion [Mass/vol ume] by Automated count Erythrocy 82.2 - fl Normal No Sep 5 te mean 97.8 informati 2017 6:30 corpuscul on in AM ar volume source [Entitic data volume] by Automated count Monocytes 0.1 - 1.0 K/mm3 Normal No Sep 5 informati 2017 6:30 [#/volume on in AM ] in source Blood by data Automated count Monocytes 1.7 - 9.3 % Normal No Sep 5 /100 informati 2016 6:30 leukocyte on in AM [...] Normal No Sep 5 te 17.5 informati 2017 6:30 distribut on in AM ion width source [Entitic data volume] by Automated count Leukocyte 4.8 - K/MM3 High No Sep 5 s 10.8 informati 2017 6:30 [#/volume on in AM [...] mg/dl High No Sep 4 [Mass/vol informati 2017 4:09 ume] in on in PM Capillary [...] High No Sep 4 dioxide 45.0 informati 2017 4:07 [Partial on in AM pressure] source in data Arterial blood pH of 7.35 - MMOL/L Normal No Sep 4 Arterial 7.45 informati 2017 4:07 blood on in AM source data Oxygen 80 - 100 MMHG Low alert Sep 4 [Partial 2017 4:07 pressure] CRITICAL AM in RESULTS Arterial blood RESU LTS CALLED TO: DR RIDDLE 11/27/16 0408 Herman Bynum Oxygen 90 - 100 % Low alert No Sep 4 saturatio informati 2017 4:07 n.calcula on in AM indira from [...] No Sep 4 a informa informa informa 2017 [Presen tion in [...] gm/dL High No Sep 4 [Mass/vol informati 2017 3:45 ume] in on in AM Serum source data Glucose 74 - 106 mg/dL High No Sep 4 [Mass/vol informati 2017 3:45 ume] in on in AM Serum or source Plasma data Potassium 3.5 - 5.1 mmoL/L Normal No Sep 4 informati 2017 3:45 [Moles/vo on in AM lume] in source Serum or data Plasma Sodium 136 - 145 mmoL/L High Sep 4 [Moles/vo 2016 3:45 lume] in CRITICAL AM Serum or RESULTS Plasma RESU LTS CALLED TO: HUNTER 11/27/16 0415 Dino,Gilbert nda Aspartate 15 - 37 U/L Normal No Sep 4 informati 2016 3:45 aminotran on in AM sferase source [Enzymati data c activity/ volume] in Serum or Plasma Alanine 12 - 78 U/L Low No Sep 4 aminotran 2016 3:45 sferase on in AM [Enzymati source c data activity/ volume] in Serum or Plasma Protein 6.4 - 8.2 gm/dL High No Sep 4 [Mass/vol inform2016 3:45 ume] in on in AM Serum [...] - 0.2 K/MM3 Normal No Sep 4 inform2016 3:45 [#/volume on in AM ] in source Blood by data Automated count Basophils 0.1 - 2.0 % Normal No Sep 4 /100 informati 2016 3:45 leukocyte on in AM s in source Blood by data Automated count Eosinophi 0.0 - 0.4 K/mm3 Normal No Sep 4 ls informati 2016 3:45 [#/volume on in AM ] in source Blood by data Automated count Eosinophi 0.1 - % Normal No Sep 4 ls/100 12.0 inform2016 3:45 leukocyte on in AM s in source Blood by data Automated count Granulocy 1.3 - 8.0 K/mm3 High No Sep 4 dar inform2016 3:45 [#/volume on in AM ] in source Blood by data Automated count Granulocy 37.0 - % Normal No Sep 4 dar/100 80.0 informati 2016 3:45 leukocyte on in AM s in source Blood by data Automated count Hematocri 42.0 - % Low No Sep 4 t [Volume 52.0 inform2016 3:45 on in AM Fraction] source of Blood data Hemoglobi 14.1 - g/dL Low No Sep 4 n 18.0 informati 2016 3:45 [Mass/vol on in AM ume] in source Blood data Lymphocyt 0.7 - 4.5 K/mm3 Normal No Sep 4 es 2016 3:45 [#/volume on in AM ] in source Unspecifi data ed specimen by Automated count Lymphocyt 10 - 50 % Normal No Sep 4 es inform2016 3:45 [#/volume on in AM ] in source Unspecifi data ed specimen by Automated count Erythrocy 27 - 31.2 pg Low No Sep 4 te mean inform2016 3:45 corpuscul on in AM ar source hemoglobi data n [Entitic mass] Erythrocy 31.8 - g/dl Low No Sep 4 te mean 35.4 inform2016 3:45 corpuscul on in AM ar source hemoglobi data n concentra tion [Mass/vol ume] by Automated count Erythrocy 82.2 - fl Normal No Sep 4 te mean 97.8 informati 2016 3:45 corpuscul on in AM ar volume source [Entitic data volume] by Automated count Monocytes 0.1 - 1.0 K/mm3 High No Sep 4 2016 3:45 [#/volume on in AM ] in source Blood by data Automated count Monocytes 1.7 - 9.3 % Normal No Sep 4 /100 2016 3:45 leukocyte on in AM s in source Blood by data Automated count Platelet 7.4 - fl Low No Sep 4 mean 10.4 informati 2016 3:45 volume on in AM [Entitic source volume] data in Blood by Automated count Platelets 142 - 424 K/mm3 Normal No Sep 4 2016 3:45 [#/volume on in AM ] in source Blood data Erythrocy 4.6 - 6.2 M/mm3 Low No Sep 4 dar 2016 3:45 [#/volume on in AM ] in source Amniotic data fluid Erythrocy 11.5 - % Normal No Sep 4 te 17.5 informati 2016 3:45 distribut on in AM ion width source [Entitic data volume] by Automated count Leukocyte 4.8 - K/MM3 High No Sep 4 s 10.8 informati 2016 3:45 [#/volume on in AM ] in source Blood data CBC W Auto Differential panel in Blood Observa Value Referen Units Interpr Notes Date tion ce etation Range Basophils 0 - 0.2 K/MM3 Normal No Aug 282016 [#/volume on in 12:40 PM ] in source Blood by data Automated count Basophils 0.1 - 2.0 % Normal No Aug 282016 leukocyte on in 12:40 PM s in source Blood by data Automated count Eosinophi 0.0 - 0.4 K/mm3 Normal No [place] 5 ls inform2016 [#/volume on in 12:40 PM ] in source Blood by data Automated count Eosinophi 0.1 - % Normal No [place] 5 ls/100 12.0 inform2016 leukocyte on in 12:40 PM s in source Blood by data Automated count Granulocy 1.3 - 8.0 K/mm3 High No [place] 5 dar 2016 [#/volume on in 12:40 PM ] in source Blood by data Automated count Granulocy 37.0 - % Normal No [place] 5 dar/100 80.0 inform2016 leukocyte on in 12:40 PM s in source Blood by data Automated count Hematocri 42.0 - % Low No [place] 5 t [Volume 52.0 inform2016 on in 12:40 PM Fraction] source of Blood data Hemoglobi 14.1 - g/dL Low No [place] 5 n 18.0 2016 [Mass/vol on in 12:40 PM ume] in source Blood data Lymphocyt 0.7 - 4.5 K/mm3 Normal No [place] 5 es 2016 [#/volume on in 12:40 PM ] in source Unspecifi data ed specimen by Automated count Lymphocyt 10 - 50 % Normal No [place] 5 es 2016 [#/volume on in 12:40 PM ] in source Unspecifi data ed specimen by Automated count Erythrocy 27 - 31.2 pg Low No [place] 5 te mean 2016 corpuscul on in 12:40 PM ar source hemoglobi data n [Entitic mass] Erythrocy 31.8 - g/dl Low No [place] 5 te mean 35.4 inform2016 corpuscul on in 12:40 PM ar source hemoglobi data n concentra tion [Mass/vol ume] by Automated count Erythrocy 82.2 - fl Low No [place] 5 te mean 97.8 inform2016 corpuscul on in 12:40 PM ar volume source [Entitic data volume] by Automated count Monocytes 0.1 - 1.0 K/mm3 High No [place] 5 2016 [#/volume on in 12:40 PM ] in source Blood by data Automated count Monocytes 1.7 - 9.3 % High No [place] 5 /100 inform2016 leukocyte on in 12:40 PM s in source Blood by data Automated count Platelet 7.4 - fl Low No Aug 5 mean 10.4 2016 volume on in 12:40 PM [Entitic source volume] data in Blood by Automated count Platelets 142 - 424 K/mm3 Normal No Aug 5 inform2016 [#/volume on in 12:40 PM ] in source Blood data Erythrocy 4.6 - 6.2 M/mm3 Normal No Aug 5 dar inform2016 [#/volume on in 12:40 PM ] in source Amniotic data fluid Erythrocy 11.5 - % Normal No Aug 5 te 17.5 inform2016 distribut on in 12:40 PM ion width source [Entitic data volume] by Automated count Leukocyte 4.8 - K/MM3 High No Aug 5 s 10.8 inform2016 [#/volume on in 12:40 PM ] in source Blood data Urinalysis dipstick W Reflex Microscopic panel in Urine Observa Value Referen Units Interpr Notes Date tion ce etation Range Appeara TURBID CLEAR No No No Aug 2 nce of informa informa informa 2017 [...] [place] 2 in E informa informa IN 2016 [Presen tion in tion in CONFIRM 9:40 [...] No No [place] 2 cytes informa informa 2016 [Presen tion in tion [...] No [place] 2 [Mass/vol informati informati informati 2016 9:40 ume] in on in on in [...] No August 18 in time 11.8 informati 2017 (PT) in on in 10:15 AM Platelet source poor data plasma by Coagulati on assay Valproate [Mass/volume] in Serum or Plasma Observa Value Referen Units Interpr Notes Date tion ce etation Range Valproate 50 - 100 mcg/mL Normal No August 18 inform2016 [Mass/vol on in 10:15 AM ume] [...] 11 0 - 131 pg/ml No No Feb 5 [employer] informa informa 2014 tion in tion in 8:18 AM source source data data NOTIFY YES No No No No Feb 5 QA informa informa informa informa 2014 tion in tion in tion in tion in 8:18 AM source source source source data data data data This No No No No Feb 5 informa informa informa informa 2014 analyte tion in tion in tion in tion in 8:18 AM has source source source source conside data data data data rable variabi lity in patient s without known heart No No No No Feb 5 disease informa informa informa informa 2014 and [...] NT-proB No No No No Feb 5 [employer] can informa informa informa informa 2014 show [...] source source NT-proB data data data data [employer] not related to congest adin heart failure [...] No Feb 5 um 5.1 informa informa 2013 [Moles/ tion [...] Range Color LT. NL: No No No b 4 of YELL Negativ informa informa informa 2014 Urine e tion in tion in tion in 11:16 source source source PM data data data Appeara CLEAR NL: No No No Feb 4 nce of Negativ informa informa informa 2014 Urine e tion in tion in tion in 11:16 source source source PM data data data Glucose 3+ NL: No Abnorma No b 4 Negativ informa l informa 2013 [Mass/v [...] data Hemoglo NEG NL: No No No b 4 bin Negativ informa informa informa 2013 [Presen e tion in tion in tion in 11:16 ce] in source source source PM Urine data data data by Test strip pH of 6.0 NL: No No No b 4 Urine informa informa informa 2014 by [...] 0.2 NL: 0.2 No No No Apr 4 nogen - 1.0 informa informa informa 2013 [Mass/v tion in tion in tion in 11:16 olume] source source source PM in data data data Urine by Test strip Nitrite NEG NL: No No No Apr 4 Negativ informa informa informa 2013 [Presen e tion in tion in tion in 11:16 ce] in source source source PM Urine data data data by Test strip Leukocy NEG NL: No No No Apr 4 dar Negativ informa informa informa 2013 [#/volu e tion in tion in tion in 11:16 me] in source source source PM Blood data data data by Automat ed count { No No No No Apr 4 MICROSC informa informa informa informa 2013 [facility]IC tion in tion in tion in tion in 11:16 source source source source PM See data data data data Below Leukocy NEGATIV NL: _ No No Apr 4 dar E NEGATIV informa informa 2013 [#/volu E tion in tion in 11:16 me] in source source PM Blood data data by Automat ed count Erythro NEGATIV NL: _ No No Apr 4 cytes E NEGATIV informa informa 2013 [#/volu E tion in tion in 11:16 me] in source source PM Blood data data by Automat ed count Epithel NEGATIV NL: _ No No Apr 4 ial E NEGATIV informa informa 2014 cells E tion in tion in 11:16 [...] Crystal NEGATIV NL: _ No No Apr 4 s E NEGATIV informa informa 2013 [type] E tion in tion in 11:16 in source source PM Urine data data sedimen t by Light microsc opy METH OF C CATCH No _ No No Apr 29 JOSUÉ informa informa informa 2014 tion in tion in tion in 11:16 [...] Apr 7 ------- informa informa informa informa 2014 ------- tion in tion in tion in tion in 9:19 AM ------- source source source source ------- data data data data ------- ------- ------- ------- ------- ------- --- TEST No No No No Fe 7 informa informa informa informa 2013 tion in [...] data data CB No No No No Apr 7 refers informa informa informa informa 2014 to: tion in tion in tion in tion in 9:19 AM [facility] source source source source [place] data data data data 6370 No No No No Feb 7 Shah informa informa informa informa 2014 [address] tion in tion in tion in tion in 9:19 AM source source source source data data data data [place], No No No No Fe 7 CO informa informa informa informa 2014 [id number] tion in tion in tion in tion in 9:19 AM 296 source source source source data data data data 614 No No No No May 02 [id number] informa informa informa informa 2014 1 tion in tion in tion in tion in 9:19 AM source source source source data data data data [place] No No No No Apr 7 R. informa informa informa informa 2014 [...] 16.3 14.0 - g/dL No No Apr 4 bin 18.0 informa informa 2014 [Mass/v tion in tion in 4:57 PM olume] source source in data data Blood Hematoc 46 40 - 54 % No No Apr 4 rit informa informa 2014 [Volume tion in tion in 4:57 PM source source Fract[place] data data n] of Blood by Automat ed count Erythro 82.5 80.0 - fL No No b 4 cyte 100 informa informa 2014 mean tion in tion in 4:57 PM [facility] source source ular data data volume [Entiti c volume] by Automat ed count Erythro 29.4 26.0 - pg No No b 4 cyte 32.0 informa informa 2014 mean tion [...] Platele 375 150 - K/uL No No b 4 ts 450 informa informa 2014 [#/volu tion [...] Basophi 2.00 0.00 - % No No Feb 4 ls/100 2.00 informa informa 2014 leukocy tion in tion in 4:57 PM dar in source source Blood data data by Automat ed count Lymphoc 3.24 0.60 - K/uL No No Feb 4 ytes/10 3.40 informa informa 2014 0 [...] Low No Feb 4 [Moles/ 145 informa 2014 volume] tion in 4:47 PM in source [...] High No Feb 4 120 alert informa 2013 [Mass/v tion in 4:47 PM [...] No Feb 4 ine 1.3 informa informa 2013 [Mass/v tion [...] No Feb 4 in.tota 1.0 informa informa 2014 l [...] Feb 4 Range: informa informa informa informa 2014 >60 [...] Feb 4 only informa informa informa informa 2014 applies [...] source source CFI data data data data [facility].br\\ [address]\\.br \\ [place] [address]\\. br\\\\.br \\ RADIOLO GY REPORT\\ .br\\ Name: VARUN Benavides\\.br\\ Patient #: [id number] Stay Type: I/P\\.br \\ Age: 57 Room: 232\\.br \\ : 957 Sex: M\\.br\\ Orderin g Phys: IZZY GLE MR#: [id number]\\. br\\ Family Phys: IZZY GLE Pt Phone: [phone] /[phone]\\. br\\ Admitti ng Phys: IZZY GLE\\.br \\ [...] M.D.\\.b r\\ MAnnemarie./ 08:22\\. br\\ Dictati on /Ti me: 05/02/13 08:41 Dictate d By: DELFINO MAGANA M.D. M.D.\\.b r\\ Transcr . Date/Ti me: 05/06/13 / 14:21 Transcr . Init.: am[facility]\\.br \\ [facility]\\.br\\ [address]\\.br \\ [place] [address]\\. br\\\\.br \\ RADIOLO GY REPORT\\ .br\\ Name: VARUN Benavides\\.br\\ Patient #: [id number] Stay Type: I/P\\.br \\ Age: 57 Room: 232\\.br \\ : 957 Sex: M\\.br\\ Orderin g Phys: IZZY GLE MR#: [id number]\\. br\\ Family Phys: IZZY DANITA Pt Phone: [phone] /[phone]\\. br\\ Admitti ng Phys: IZZY GLE\\.br \\ [...] source source ALS data data data data [facility]\\.br\\ [address]\\.br \\ [place] [address]\\. br\\\\.br \\ RADIOLO GY REPORT\\ .br\\ Name: VARUN Benavides\\.br\\ Patient #: [id number] Stay Type: I/P\\.br \\ Age: 57 Room: 232\\.br \\ : 957 Sex: M\\.br\\ Orderin g Phys: IZZY SAMAYOA MR#: [id number]\\. br\\ Family Phys: IZZY SAMAYOA Pt Phone: [phone] /[phone]\\. br\\ Admitti ng Phys: IZZY DANITA\\.br \\ Unsig singh Transcr iptions represe nt [...] \\ DELFINO MAGANA M.D.\\.b r\\ MAnnemarie./ 08:22\\. br\\\\.br \\ Dictati on Date/Ti me: [...] AP LA informa informa informa informa 2013 ti in tion in tion in tion in 4:03 PM source source source source data data data data [facility].br\\ [address]\\.br \\ [place] [address]\\. br\\\\.br \\ RADIOLO GY REPORT\\ .br\\ Name: VARUN Benavides\\.br\\ Patient #: [id number] Stay Type: I/P\\.br \\ Age: 57 Room: 232\\.br \\ : 957 Sex: M\\.br\\ Orderin g Phys: IZZY DANITA MR#: [id number]\\. br\\ Family Phys: IZZY GLE Pt Phone: [phone] /[phone]\\. br\\ Admitti ng Phys: IZZY GLE\\.br \\ [...]
--- OUTSIDE RECORDS SUMMARY | 2017-02-25 16:26 | External Medical Summary Rpt ---
Author Author [employer], [employer] Organization [employer] Address [...] RESU LTS CALLED TO: HUNTER 11/27/16 0415 Dino,Banks nda Aspartate 15 - 37 U/L Normal [...] - 131 pg/ml No No Feb 5 JOB ANALYST informa informa 2014 tion in tion in [...] NT-proB No No No No Feb 5 JOB ANALYST can informa informa informa informa 2014 show [...] source source NT-proB data data data data JOB ANALYST not related to congest adin heart failure [...] 9:19 AM [facility] source source source source [place] data data data data 6370 No No No No Feb 7 Shah informa informa informa informa 2014 Road tion in tion in tion in tion in 9:19 AM source source source source data data data data [place], No No No No Fe 7 [place] informa informa informa informa 2014 05133-5 tion in tion in tion in tion [...] in tion in tion in 9:19 AM [facility] source source source source GLE via data [...] CFI data data data data [facility]\\.br\\ [address]\\.br \\ [place] [address]\\. br\\\\.br \\ RADIOLO GY REPORT\\ .br\\ Name: VARUN Benavides\\.br\\ Patient #: [id number] Stay Type: I/P\\.br \\ Age: 57 Room: 232\\.br \\ : 957 Sex: M\\.br\\ Orderin g Phys: IZZY GLE MR#: [id number]\\. br\\ Family Phys: IZZY GLE Pt Phone: [phone] /[phone]\\. br\\ Admitti ng Phys: IZZY GLE\\.br \\ [...] /Ti me: 05/02/13 08:41 Dictate d By: DELFNIO MAGANA M.D. M.D.\\.b r\\ Transcr . Date/Ti me: 05/06/13 / 14:21 Transcr . Init.: amh\\.br \\ [facility]\\.br\\ [address]\\.br \\ [place] [address]\\. br\\\\.br \\ RADIOLO GY REPORT\\ .br\\ Name: VARUN Benavides\\.br\\ Patient #: [id number] Stay Type: I/P\\.br \\ Age: 57 Room: 232\\.br \\ : 957 Sex: M\\.br\\ Orderin g Phys: IZZY GLE MR#: [id number]\\. br\\ Family Phys: IZZY DANITA Pt Phone: [phone] /[phone]\\. br\\ Admitti ng Phys: IZZY GLE\\.br \\ [...] source source ALS data data data data [facility]\\.br\\ [address]\\.br \\ [place] [address]\\. br\\\\.br \\ RADIOLO GY REPORT\\ .br\\ Name: VARUN Benavides\\.br\\ Patient #: [id number] Stay Type: I/P\\.br \\ Age: 57 Room: 232\\.br \\ : 957 Sex: M\\.br\\ Orderin g Phys: IZZY SAMAYOA MR#: [id number]\\. br\\ Family Phys: IZZY SAMAYOA Pt Phone: [phone] /[phone]\\. br\\ Admitti ng Phys: IZZY DANITA\\.br \\ [...] source data data data data [facility]\\.br\\ [address]\\.br \\ [place] [address]\\. br\\\\.br \\ RADIOLO GY REPORT\\ .br\\ Name: VARUN Benavides\\.br\\ Patient #: [id number] Stay Type: I/P\\.br \\ Age: 57 Room: 232\\.br \\ : 957 Sex: M\\.br\\ Orderin g Phys: IZZY DANITA MR#: [id number]\\. br\\ Family Phys: IZZY GLE Pt Phone: [phone] /[phone]\\. br\\ Admitti ng Phys: IZZY GLE\\.br \\ [...]
--- NOTE | 2017-02-25 17:26 | Emergency Room Report ---
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 N Clinical Suspician of Infection? N Mental Status: 1 - Regular (Normal Baseline) Sepsis Risk:Low Sepsis Risk Have you (or family members/close friends) recently traveled outside the [place]? N If Yes, where/when: Have you had exposure to infectious disease within the past month? TB? Other? Specify: Source patient, RN notes reviewed, EMS, senior care records, old records Exam Limitations no limitations Comment fell at f with shoulder and hip pain with no loc and no focal neuro sx- he reported hit head and neck Cardiac Chest Pain Chest pain indicative of cardiac No Timing/Duration this afternoon Severity moderate ALLERGIES Coded Allergies: No Known Allergies (02/25/17) Home Medications Reported Medications Atorvastatin Calcium (Atorvastatin) 20 MG PO DAILY QUETIAPINE FUMARATE (Quetiapine Fumarate) 100 MG PO QHS Valproic Acid (Valproic Acid Syrup 500MG/10ML) 20 ML PO BID SERTRALINE HYDROCHLORIDE (Zoloft 100MG) 200 MG PO DAILY MORPHINE SULF IMMED.RELEASE (Morphine Sulfate) 7.5 MG PO TID Sertraline Hcl (Zoloft 50MG) 50 MG PO DAILY ALBUTEROL-IPRATROPIUM (Iprat-Albut 0.5-3(2.5) MG/3 Ml) 3 ML IH Q12HP PRN SHORTNESS OF AIR Valproic Acid (As Sodium Salt) (Valproic Acid) 10 ML PO 1300 DONEPEZIL HCL (Aricept 23MG) 10 MG PO DAILY Polyethylene Glycol 3350 (Miralax) 17 GM PO DAILY Zinc Sulfate (Zinc Sulfate 220MG) 220 MG PO DAILY MEMANTINE HCL (Namenda 10MG) 10 MG PO BID Ascorbic Acid (Vitamin C) 500 MG PO BID Carbidopa/Levodopa (Carbidopa-Levodopa 25-100 Tab) 1 TAB PO TID TRAMADOL HCL (Tramadol) 50 MG PO TIDP PRN PAIN Acetaminophen (Acetaminophen Extra Strength) 500 MG PO Q4HP PRN PAIN Docusate Sodium 100 MG PO DAILYP PRN BM Ertapenem Sodium (Invanz) 1 GM IM DAILY DONEPEZIL HCL (Donepezil 10MG Tablet) 20 MG PO QHS Fentanyl 50 MCG TD Q3D Polyethylene Glycol 3350 (Miralax) 17 GM PO DAILY QUETIAPINE FUMARATE (Quetiapine Fumarate) 100 MG PO QHS Zinc Sulfate (Zinc Sulfate 220MG) 220 MG PO DAILY Simvastatin (Zocor) 40 MG PO QHS SERTRALINE HYDROCHLORIDE (Zoloft 100MG) 200 MG PO DAILY Levetiracetam (Keppra 500 Mg Tablet) 500 MG PO BID Memantine HCl 10 MG PO BID PROTEIN SUPPLEMENT (Promod 946 Ml) 1 LIQ PO QID Ascorbic Acid (Vitamin C) 250 MG PO DAILY CARBIDOPA/LEVODOPA (Carbidopa-Levodopa 25-100 Tab) 1 TAB PO TID History Medical History General CAD? No Angina: No CT: No Hypertension? Yes Hyperlipidemia? Yes CHF? No DVT? No PE? No COPD? No Asthma? No Anemia? No GERD? No Gastric ulcers? No GI Bleed? No Hernia? No Thyroid Problems? No Hypothyroidism? No CVA? No Seizures? Yes Diabetes? Yes Insulin Dependent: No Insulin Pump: No Home FSBS? Yes Renal Insuffiency? No End Stage Renal Disease? No UTI? No Stones? No BPH? No GB Disease: No Nephritic Syndrome? No Asplenia? No Hepatitis? No Sickle Cell Disease? No Arthritis? No Migraines? No Cataracts? No Glaucoma? No MRSA? No HIV? No TB? No Anxiety? Yes Depression? No Cancer? No More? Yes Additional hx: dementia Immunization Hx Ped.Immunizations UTD Yes DT/Tetanus Unknown Flu Refused Pneumonia Unknown Surgical Hx Previous Surgery?Y PEG PLACEMENT TRACH PLACEMENT Family History Family Hx Diabetes Yes CAD No Hypertension Yes Hyperlipidemia Yes Cancer No TB No Social History Smoking Hx Smoker: Never Smoker Tobacco: No Packs/day N/A Alcohol Alcohol: No Drugs none Review of Systems All Other Systems Reviewed and Negative Constitutional denies fever Eyes denies drainage ENT denies: ear pain, epistaxis, throat pain. Respiratory denies cough, denies shortness of breath, denies wheezing Cardiovascular denies chest pain, denies syncope Gastrointestinal denies abdominal pain, denies diarrhea, denies vomiting Genitourinary denies: dysuria, frequency, hesitancy, hematuria. Musculoskeletal see HPI, denies back pain, joint pain, denies joint swelling, neck pain Skin denies rash Psychiatric/Neurological denies headache, denies seizure Physical Exam Vital Signs Vital Signs Date Time Temp Pulse Resp B/P Pulse O2 O2 Flow FiO2 Ox Delivery Rate 02/25 1556 97.8 82 18 102/72 99 - WBC >12,000 or <4,000 or 10% bands? 2 or more SIRS Criteria Met? B/P:102/72 MAP:82 Creatinine >2.0? UA output<0.5ml/kg/hr for 2 hrs? Platelet count >100,000? Lactate >2.0mmol/1? INR >1.2 or PTT > than 60 sec? Evidence of Organ Dysfunction? Provider documented clinical suspician of infection? N Sepsis Criteria Count: 0 Sepsis Risk: Low Sepsis Risk General Appearance no apparent distress Eye Exam - bilateral eye PERRL, bilateral eye EOMI Ear, Nose, Throat normal ENT inspection Neck limited range of motion Respiratory Status No: respiratory distress, tender on palpation. Lung Sounds bilateral: decreased breath sounds. Cardiovascular regular rate/rhythm, systolic murmur Peripheral Pulses Pulses normal Yes Gastrointestinal soft Extremities normal inspection Strength 4 Upper Ext (L), 4 Upper Ext (R), 4 Lower Ext (L), 4 Lower Ext (R) Neurologic alert, operations expert II-XII nml as tested, no motor/sensory deficits Glascow Coma Scale Glascow Coma Scale Response Value EYE response: 4 Spontaneously 4 MOTOR response: 6 OBEYS 6 VERBAL response: 4 Disoriented & Converses 4 Total 14 Reflexes Reflexes normal No Mental status normal mood/affect Skin intact Medical Decision Making LABS/Meds/Orders Pt receiving controlled substance in ED? No Results/Orders Orders Procedure Date/time Status DIET-NOTHING BY MOUTH 02/25 D Active [id number] VIEWS 02/[address] HEAD W/O CONTRAST 02/[address] CERVICAL SPINE W/O CONT. 02/25 1606 Active CHEST-AP VIEW ONLY 02/[address] HEAD REQ 02/[address] SCAN REQUEST 02/25 1602 Complete HIP RT 2-3V W/PELVIS IF PERFOR 02/25 1602 Active XRAY/CT/US XRAY/CT/US 1 XRAY chest, pelvis, shoulder XR interpretation by reviewed by me Xray Results no fracture seen XRAY/CT/US 2 CT head, C-spine CT interpretation by discussed w/radiologist Time results known: 1724 CT Results no fracture seen Departure Departure Time of Disposition 171 Disposition DC Home or Self Care(routine) Clinical Impression Primary Impression: Head contusion Qualifiers: Encounter type: initial encounter Contusion of head detail: unspecified part of head Qualified Code: S00.93XA - Contusion of unspecified part of head, initial encounter Secondary Impressions: Cervical strain, acute Qualifiers: Encounter type: initial encounter Qualified Code: S16.1XXA - Strain of muscle, fascia and tendon at neck level, initial encounter Contusion of hip, right Qualifiers: Encounter type: initial encounter Qualified Code: S70.01XA - Contusion of right hip, initial encounter Contusion of shoulder, right Qualifiers: Encounter type: initial encounter Qualified Code: S40.011A - Contusion of right shoulder, initial encounter Condition STABLE Referrals Mercedez CARRERA,Curt Hyde (Family) Patient Instructions How to Prevent Falls Additional Instructions ice and resume care at ecf Discharge Counseling Counseled pt/family regarding diagnosis, test results ED Critical Care Critical Care No at 1725
[2017-02-25 17:30] VITALS: BP 102/72
--- NOTE | 2017-02-25 19:13 | RADIOLOGY REPORT PS360 ---
CT CERVICAL SPINE WITHOUT CONTRAST CT RECONSTRUCTIONS Ordering physician, ER HISTORY: Neck pain. A 61-year-old male. Injury with neck pain fell out of bed. Unable to give history patient in c-collar PROCEDURE: Thin section helical spiral CT scanning performed from the base the skull through the entire C-spine down to the T2 level. Sagittal coronal reconstructions on CT workstation FINDINGS: No fracture nor subluxation is evident.Normal prevertebral soft tissues. Normal alignment Normal C1/C2 relationships. . Cervical spondylosis and multilevel degenerative changes C-spine. With mild degenerative facet changes bilaterally C2/3. Mild central spurring. C3/4. Moderate Central spur indenting thecal sac at midline to C4/5. Mild central spurring C5/6. Posterior endplate spurring, ossified most evident to the right paracentral and abut and mildly indenting right anterior corner and aspect of the cervical cord. Also focal spurring seen just to left of midline.. Disc osteophyte features yield spinal stenosis most evident to the right of midline. C6/7 prominent focal posterior endplate spurring most pronounced right paracentral-effaces the right anterior aspect of cervical cord sac. Mild central disc protrusion. C7/T1 disc intact Bodies intact and unremarkable. Facet arthropathy most pronounced to the far right at C6/7, C7/T1 T1 facet far rightward Apices of lungs are clear with no acute findings. IMPRESSION: The lobulated generous posterior contour of the thyroid. Calcified carotid bifurcations bilaterally. The right and left TMJ intact.. Extensive dental caries partially imaged pronounced involvement multiple Teeth throughout. IMPRESSION [[[[[[[[[[[[[ no acute fracture nor subluxation T-spine. Degenerative changes, cervical spondylosis multiple levels C-spine as detailed in text. . Cervical spondylosis most evident at C6/7 C5/6. Posterior spurring which impinges upon t cervical cord on right > left
--- NOTE | 2017-02-25 20:28 | RADIOLOGY REPORT PS360 ---
CT CT HEAD WITHOUT CONTRAST CT BONE WINDOWS included ORDERING PHYSICIAN : Inderjit Newsome MD PATIENT AGE: 61 years GENDER: Male PROCEDURE: Routine axial images headwithout contrast. Brain & bone windows HISTORY: FALL fell out of bed. Hit head. poor historian COMPARISON: Previous CT head 04/19/2016 FINDINGS: No significant interval change No acute intracranial findings. No hemorrhage. . No mass effect or mass lesion. No subdural nor extra-axial collection. Ventricles & basal cisterns appear satisfactory. The posterior fossa appear satisfactory and unremarkable. No skull fracture. Skull intact. The visualized portions of the paranasal sinuses are clear. Mastoid air cells, middle ear & IACs are unremarkable. Minimal cerumen external canals bilateral IMPRESSION: No acute intracranial findings. Stable CT head . Mild diffuse cerebral atrophy
--- NOTE | 2017-02-25 20:32 | RADIOLOGY REPORT PS360 ---
[id number] VIEWS Ordering Physician: Inderjit Newsome MD Patient Age: 61 years: Male HISTORY: FELL OON right shoulder. Alignment bed. Injury. Right shoulder pain TECHNIQUE: 3 views of the right shoulder.. COMPARISON :None available only prior chest x-ray. FINDINGS No acute findings. No fracture nor dislocation. Demineralization. Glenohumeral relationships normal. AC joint intact with minor degenerative changes. Slight indentation at the base of the humeral head near base of greater tuberosity may reflect impingement and degenerative sequela but are nonspecific. The humeral head intact. IMPRESSION: No fracture nor dislocation. Right shoulder intact.
--- NOTE | 2017-02-25 21:14 | RADIOLOGY REPORT PS360 ---
CHEST-AP VIEW ONLY Ordering physician: Inderjit Newsome MD Age: 61 years Male INDICATION: Fall with chest painFALL PROCEDURE: CHEST-AP VIEW ONLY FINDINGS: Injury. Hit head. Poor historian. Lungs appear clear with nothing definitely acute. The high contrast technique, accentuates markings but no active disease evident. Previous chest film from November 2016 used as comparison. No significant new findings upper normal markings at the right infrahilar region similar to previous studies. Reflect some minimal scarring atelectasis here. Heart is upper normal in size. Mediastinum upper normal width but this may be accentuated by the supine projection Lungs well expanded and clear with nothing definitely acute. No pneumothorax. No pleural effusion. .. Normal pulmonary vascularity. Chest wall unremarkable.. IMPRESSION ----- Nothing definitely acute . Heart upper normal in size. More generous width of the superior mediastinum most likely reflects the supine projection
--- NOTE | 2017-02-25 21:18 | RADIOLOGY REPORT PS360 ---
HIP RT 2-3V W/PELVIS IF PERFOR Ordering Physician: Inderjit Newsome MD Patient Age: 61 years: Male HISTORY: FALL TECHNIQUE: AP & crosstable lateral view right hip :along with AP osseous pelvis COMPARISON :AP pelvis 02/14/2017 FINDINGS RIGHT HIP: right hip appears intact with no fracture nor dislocation no significant change since 2017 AP. Crosstable lateral shows remain normal position. AP PELVIS: AP pelvis appears stable and intact since January 2017 AP pelvis radiograph. Superior and inferior ramus intact. The sacrum intact. Diffuse demineralization. Hip joint spaces are fairly well-maintained bilaterally with some minor degenerative changes. Minimal calcification of iliac and common femoral arteries. IMPRESSION: AP pelvis appears stable and unchanged since January 2017. Right hip appears stable/similar with no good evidence of acute fracture. . Hip joint spaces well-maintained bilaterally with only mild degenerative changes
[2017-03-08] MEDS ORDERED: SEROQUEL300 MG PO (14:54)
[2017-03-08] MEDS ORDERED: ZINC SULFATE 2220 MG PO (14:55)
[2017-03-08] MEDS ORDERED: NORCO 325 MG-51 TAB PO (17:29)
[2017-03-09] MEDS ORDERED: KEFLEX 500MG.500 MG PO (10:00)
== END 2017-02-25 17:31 | disposition home or self-care (01) ==
LOC: ER 15:49
DX: S00.93XA Contusion of unspecified part of head, initial encounter (principal); S16.1XXA Strain of muscle, fascia and tendon at neck level, initial encounter; S70.01XA Contusion of right hip, initial encounter; S40.011A Contusion of right shoulder, initial encounter; I10 Essential (primary) hypertension; Z79.899 Other long term (current) drug therapy; E78.5 Hyperlipidemia, unspecified; E11.9 Type 2 diabetes mellitus without complications; W01.0XXA Fall on same level from slipping, tripping and stumbling without subsequent striking against object, initial encounter; Y92.129 Unspecified place in nursing home as the place of occurrence of the external cause

== ENCOUNTER → 2017-03-08 | Outpatient (CLI) | payer MEDICARE ==
[~2017-03-08] MED LIST changes: +DURAGESIC 50MC50 MCG TD; +INVANZ 1 GM1 GM IM; +KEFLEX 500MG.500 MG PO; +KEPPRA 500 MG500 MG PO; +MEMANTINE HCL10 MG PO; +NORCO 325 MG-51 TAB PO; +PROMOD 946 ML946 ML PO; +SEROQUEL300 MG PO; +SINEMET 25/1001 TAB PO; +VITAMIN C500 M1 PO; +ZOCOR40 MG PO
[2017-03-08 11:29] LABS: BUN 6 mg/dL (7-18)
[2017-03-08 11:31] LABS: GFR (ESTIMATED) 137 ML/MIN (>60)
--- NOTE | 2017-03-08 15:49 | RADIOLOGY REPORT PS360 ---
CTA-ABD CLINICAL INDICATION: Abdominal aortic aneurysm evaluation HX AAA ORDERING PHYSICIAN: Curt Newsome MD PATIENT AGE: 61 years TECHNIQUE: Axial images obtained following the intravenous administration 100 mL of Isovue-370. Sagittal, coronal, and 3-D reformatted images are also generated and reviewed. FINDINGS: Angiographic findings: Atheromatous changes involve the aorta and its branches as well as the iliac arteries. There is mild fusiform dilatation of the infrarenal abdominal aorta at 2.5 cm. The aorta at the bifurcation measures 1.9 cm. The proximal right common iliac is 1.5 cm. The mid aspect of the left common iliac is 1.4 cm. There is mild stenosis of the ostium of the celiac artery of approximately 40%. Atherosclerotic plaque is present at the ostium of the right main renal artery with less than 50% stenosis. There are 2 right renal arteries and 2 left renal arteries. The KYRIE is patent. No intestinal obstruction or free air is evident. The liver, spleen, and adrenal glands and pancreas are unremarkable. No calcified gallstones. There are atelectatic or fibrotic changes in the lung bases. No acute bony anomalies. IMPRESSION: 1. Mild fusiform dilatation of the infrarenal abdominal aorta at 2.5 cm and mild dilatation of both common iliac arteries. 2. Atheromatous changes of the aorta and its branches as described above.
== END ==
LOC: RAD 10:51 → LAB 10:51 → RAD 11:15
PROVIDERS: Emergency Medicine
DX: I71.4 Abdominal aortic aneurysm, without rupture (principal)
CPT/HCPCS: Q9967